=== PATIENT | male | born 1940 | race Caucasian/White ===

== ENCOUNTER 2024-04-11 22:58 | Emergency (ER) | payer MEDICARE, SELFPAY ==
[2024-04-11 23:02] VITALS: BP 153/65
[2024-04-11 23:10] VITALS: BP 153/65
[2024-04-11 23:22] VITALS: BMI 26.0
[2024-04-11 23:30] VITALS: BP 156/66
--- NOTE | 2024-04-11 23:43 | ED.GENMED ---
History of Present Illness
General
Chief Complaint: Chest Pain
Source: patient
Exam Limitations: none
Time Seen by Provider: 04/11/24 23:24
Nursing documentation reviewed up to this point in time: agreed with
History of Present Illness
History of Present Illness:
Pleasant 84-year-old male who presents with chest pain that began around 9:40 PM this evening. He states that he was bending over and developed sharp chest pain. He took 3 nitroglycerin. He states that he felt some relief with the second nitro.
Denies fever, chills, nausea or vomiting. He states that he is currently chest pain-free. 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 Mariano Lujan. Patient states that he was measuring for blinds in the house. She was exerting
himself during the day today.
Vital signs are stable. Patient not hypoxic
Nursing note reviewed. I agree with nursing documentation up to this point in time.
Home Meds and allergies reviewed.
NUMBER AND COMPLEXITY OF PROBLEMS ADDRESSED AT THE ENCOUNTER
� Chronic conditions affecting care: Coronary artery disease, hypertension, GERD
� Acute Exacerbation and/or Progression of Chronic Illness: Possible coronary artery disease.
� Differential Diagnosis includes: GERD, ACS, musculoskeletal chest pain.
AMOUNT AND/OR COMPLEXITY OF DATA TO BE REVIEWED AND ANALYZED
I performed an independent evaluation of the following and my interpretation is:
EKG:
CT:
X-rays:
Ultrasound:
Laboratory Studies:
Other:
Review of other/old records:
CONCLUSIONS
1. Normal biventricular systolic function.
2. Aortic valve sclerosis.
3. Mild pulmonary hypertension.
4. Mild to moderate DC.
Clinical information was obtained by an independent historian:
Prescriptions/Medications Considered but not given:
Further testing considered but not performed:
RISK OF COMPLICATIONS AND/OR MORBIDITY OR MORTALITY OF PATIENT MANAGEMENT
Social determinants of health affecting care: Good Social Support, is present at the bedside.
Discussion with other providers:
Escalation of care including admission/observation vs risk of discharge considered:
CRITICAL CARE NOTE:
Total Time (exclusive of procedures):
Update:
Review of Systems
Review of Systems
Allergies reviewed?: Yes
Other source history: family
All Other Systems: ROS reviewed and negative except as documented in HPI and ROS
Constitutional: Reports no symptoms
EENT: Reports no symptoms
Respiratory: Reports no symptoms
Cardiac: Reports no symptoms
ABD/GI: Reports no symptoms
: Reports no symptoms
Musculoskeletal: Reports no symptoms
Skin: Reports no symptoms
Neurological: Reports no symptoms
Endocrine: Reports no symptoms
Hematologic/Lymphatic: Reports no symptoms
Psychiatric: Reports no symptoms
Phy Exam
General Physical Exam
General Presentation: well appearing and no apparent distress
General Skin: warm and dry
General Habitus: normal
General Mental: alert
General Hydration: appears well hydrated
ENT Exam
ENT Exam: EOMI, pharynx normal, neck supple and normocephalic
Eye Exam
Eye Exam: PERRL, cornea clear and conjunctiva normal
Cardiovascular Exam
Cardiovascular Exam: regular rate/rhythm, no edema, no murmur and normal peripheral pulses
Pulmonary Exam
Pulmonary Exam: lungs clear, no respiratory distress, no rales, no crackles, no rhonchi, no stridor, no wheezing and no cough
Gastrointestinal Exam
Gastrointestinal Exam: normal bowel sounds, non tender, soft, no organomegaly, no pulsatile mass and non distended
Neurological Exam
Neurological Exam: alert, oriented x3, no motor deficits and speech normal
Musculoskeletal Exam
Musculoskeletal Exam: full ROM and no edema
Skin Exam
Skin Exam: normal color, warm/dry, no rash and no petechia
Psychiatric Exam
Psychiatric Exam: normal mood/affect
Scores
Heart Score for Chest Pain Patients
STEMI patient?: No
History: Slightly or Non-Suspicious
ECG: Normal
Age: >/= 65 years
Risk Factors: >/= 3 Risk Factors or History of CAD
Troponin: </= Normal Limit
Heart Score for Chest Pain Patients: 4
Heart Score Risk: 20.3% MACE over next 6 weeks
Course
Orders/Labs/Results
Orders:
Orders
04/11/24 23:00
Electrocardiogram (*1) Urgent
Reason for Study: Chest Pain
04/11/24 23:01
EKG- Treatment ONCE
04/11/24 23:25
CR Chest - 2 Views Urgent
Comment:
Reason For Exam: cp
04/11/24 23:36
Complete Blood Count/With Diff Urgent
PTT Urgent
Prothrombin Time Urgent
04/11/24 23:59
Comprehensive Metabolic Panel Urgent
Comment: REDRAW
Troponin I Urgent
04/12/24 03:33
Troponin I Urgent
Abnormal Lab Results
04/11/24 04/12/24
23:36 00:46
WBC 4.5 L 10^3/uL
(4.8-10.8)
RBC 3.62 L 10^6/uL
(4.70-6.10)
Hgb 12.4 L g/dL
(13.0-18.0)
Hct 35.2 L %
(39.0-52.0)
MCV 97.2 H fL
(80.0-94.0)
MCH 34.3 H pg
(27.0-31.0)
Plt Count 106 L 10^3/uL
(130-400)
Absolute Lymphs (auto) 0.9 L 10^3/uL
(1.2-3.4)
Lymphocytes % 20.0 L %
(20.5-51.1)
Monocytes % 10.2 H %
(1.7-9.3)
PT 22.2 H Sec
(11.4-14.6)
BUN 43 H mg/dl
(9-20)
Creatinine 1.5 H mg/dL
(0.7-1.3)
Glucose 112 H mg/dl
(70-99)
Alkaline Phosphatase 283 H U/L
(38-126)
04/11/24 23:36
04/12/24 00:46
Vital Signs
Initial and Last Documented VS:
Initial Vital Signs
Pulse Resp BP Pulse Ox
75 19 153/65 95
04/11/24 23:02 04/11/24 23:02 04/11/24 23:02 04/11/24 23:02
Last Documented Vital Signs
Pulse Resp BP Pulse Ox
74 15 158/75 95
04/12/24 05:00 04/12/24 05:00 04/12/24 05:00 04/12/24 05:00
*Critical Care Note
Total Time (30-74mins, 75-104mins- exclusive of procedures): Not Applicable
ED Attending Note
-
Portions of this chart may have been created with voice recognition software.� Occasional wrong word or��sound alike� substitutions may have occurred due to the inherent limitations of voice recognition software.
Discharge Plan
Departure
Patient Disposition: Home (Routine Discharge)
Date of Disposition: 04/12/24
Time of Disposition: 04:34
Patient with high blood pressure during this ER visit?: Yes
Condition: Good
Discharge Problem:
Chest pain
Instructions: Chest Pain DCA Follow Up
Referrals:
Willis Zuniga MD [Active] -
Moises Moore MD [Family Provider] -
Activity Restrictions/Additional Instructions:
It was a pleasure meeting you and taking part in your care. We hope for your continued healing and wellness.
Please read discharge instructions in their entirety. However, they are for general education and may not describe your exact diagnosis at discharge. Information on your ER visit and medical conditions were discussed with you along with appropriate
follow up information...
If indicated, please take your medications as instructed and indicated on discharge paperwork.
Please schedule a follow up appointment as directed. Call to schedule an appointment
Please return to the emergency department with ANY change in, persisting, or worsening of symptoms. If any of your symptoms do not improve, or persist, or become more severe within 6-12 hours, please return to the emergency department for further
care.
Please return to the emergency department if you develop a headache, neck pain/stiffness, fever greater than 100.4F, chest pain, shortness of breath, persistent nausea, vomiting, slurred speech, difficulty walking, numbness/tingling, weakness, signs
of infection or any other symptoms that are worrisome to you.
If you have any questions or concerns please do not hesitate to call the Hospital at or E-mail me directly at [email or web address]
Interventions
Interventions:
*Risk Screen - Suicide Last Done: 04/11/24 23:02
*General Assessment Last Done: 04/11/24 23:02
*Neglect/Abuse Screening Last Done: 04/11/24 23:02
ED- Fall Risk Assessment Last Done: 04/11/24 23:22
*ED COVID-19 Vaccine History Last Done: 04/11/24 23:22
*Nursing Disposition Last Done: 04/12/24 05:25
ED- Cardiac Assessment Last Done: 04/11/24 23:22
Discharge Date and Time
Discharge Date/Time: 04/12/24 05:27
Print Language: TUNISIAN
[2024-04-11 23:50] LABS: % Basophils 0.9 % (0-2); % Immature Granulocytes 0.2 % (0-0.5); % Monocytes 10.2 % (1.7-9.3); % Neutrophils 64.7 % (42.2-75.2); Absolute Eosinophils 0.2 10^3/uL (0-0.7); Absolute Lymphocytes 0.9 10^3/uL (1.2-3.4); Absolute Monocytes 0.5 10^3/uL (0.1-0.6); Absolute Neutrophils 2.9 10^3/uL (1.4-6.5); Hematocrit 35.2 % (39.0-52.0); Hemoglobin 12.4 g/dL (13.0-18.0); Mean Corp Hgb Conc. 35.2 g/dL (33.0-37.0); Mean Corpuscular Hgb 34.3 pg (27.0-31.0); Mean Corpuscular Volume 97.2 fL (80.0-94.0); Mean Platelet Volume 10.3 fL (7.4-10.4); Nucleated Red Blood Cells % 0 % (-); Platelet Count 106 10^3/uL (130-400); Red Blood Cell Count 3.62 10^6/uL (4.70-6.10); Red Cell Dist. Width 13.5 % (11.5-14.5); White Blood Cell Count 4.5 10^3/uL (4.8-10.8)
[2024-04-12] VITALS (10 sets, daily range): BP systolic 153–186; BP diastolic 71–114
[2024-04-12 00:03] LABS: APTT 30.4 Sec (23.4-35.0); INR 1.92; PT 22.2 Sec (11.4-14.6)
[2024-04-12 01:35] LABS: ALT (SGPT) 21 U/L (0-50); AST (SGOT) 34 U/L (17-59); Albumin 4.5 g/dl (3.5-5.0); Alkaline Phosphatase 283 U/L (38-126); Blood Urea Nitrogen 43 mg/dl (9-20); Calcium 10.2 mg/dl (8.4-10.2); Carbon Dioxide 23 mmol/L (22-30); Chloride 102 mmol/L (98-107); Estimated Creatinine Clearance 35 ml/min; Glucose 112 mg/dl (70-99); Potassium 5.1 mmol/L (3.5-5.1); Sodium 139 mmol/L (135-145); Total Bilirubin 1.2 mg/dl (0.2-1.3); Total Protein 7.2 g/dl (6.3-8.2); eGFR 45.06
[2024-04-12 01:38] LABS: Troponin I 0.017 ng/ml
[2024-04-12 04:31] LABS: Troponin I < 0.012 ng/ml
== END 2024-04-12 05:27 | disposition home or self-care (01) ==
LOC: EMR 22:58
PROVIDERS: EMERGENCY PHYSICIAN Student in an Organized Health Care Education/Training Program; FAMILY PHYSICIAN Internal Medicine
DX: R07.9 Chest pain, unspecified (principal); I10 Essential (primary) hypertension; I25.10 Atherosclerotic heart disease of native coronary artery without angina pectoris; K21.9 Gastro-esophageal reflux disease without esophagitis
CPT/HCPCS: 99285; 71046; 80053; 84484; 85025; 85610; 85730; 93005

== ENCOUNTER 2024-06-06 16:54 | Inpatient (IN) | payer MEDICARE, SELFPAY ==
[2024-06-06] VITALS (15 sets, daily range): BP systolic 134–209; BP diastolic 54–86; BMI 25.8
[2024-06-06 12:34] LABS: % Eosinophils 4.6 % (0-6); % Immature Granulocytes 0.5 % (0-0.5); % Lymphocytes 22.4 % (20.5-51.1); % Monocytes 10.6 % (1.7-9.3); % Neutrophils 60.9 % (42.2-75.2); Absolute Eosinophils 0.2 10^3/uL (0-0.7); Absolute Lymphocytes 0.9 10^3/uL (1.2-3.4); Absolute Monocytes 0.4 10^3/uL (0.1-0.6); Absolute Neutrophils 2.4 10^3/uL (1.4-6.5); Hematocrit 31.1 % (39.0-52.0); Mean Corp Hgb Conc. 35.4 g/dL (33.0-37.0); Mean Corpuscular Hgb 32.9 pg (27.0-31.0); Mean Corpuscular Volume 93.1 fL (80.0-94.0); Mean Platelet Volume 9.9 fL (7.4-10.4); Nucleated Red Blood Cells % 0 % (-); Platelet Count 114 10^3/uL (130-400); Red Blood Cell Count 3.34 10^6/uL (4.70-6.10); Red Cell Dist. Width 14.2 % (11.5-14.5); White Blood Cell Count 3.9 10^3/uL (4.8-10.8)
[2024-06-06 12:55] LABS: Troponin I < 0.012 ng/ml
[2024-06-06 13:07] LABS: ALT (SGPT) 16 U/L (0-50); AST (SGOT) 26 U/L (17-59); Albumin 4.1 g/dl (3.5-5.0); Alkaline Phosphatase 301 U/L (38-126); Blood Urea Nitrogen 37 mg/dl (9-20); Calcium 9.6 mg/dl (8.4-10.2); Carbon Dioxide 24 mmol/L (22-30); Chloride 103 mmol/L (98-107); Estimated Creatinine Clearance 34 ml/min; Glucose 200 mg/dl (70-99); Potassium 5.3 mmol/L (3.5-5.1); Sodium 138 mmol/L (135-145); Total Bilirubin 0.9 mg/dl (0.2-1.3); Total Protein 6.4 g/dl (6.3-8.2)
--- NOTE | 2024-06-06 13:35 | ED.GENMED ---
History of Present Illness
General
Chief Complaint: Chest Pain
Source: patient
Exam Limitations: none
Time Seen by Provider: 06/06/24 11:52
Nursing documentation reviewed up to this point in time: agreed with
History of Present Illness
History of Present Illness:
84-year-old male with past medical history of coronary artery disease, hypertension, PE, GERD, hyperlipidemia presents emergency department today with concerns of chest pain. He is currently asymptomatic. He reports that he first started noticing
the pain last night at rest when he was sitting in a chair. He reports that this pain required 2 nitro with relief. Patient reports that he then went to bed and woke up with chest pain. This took 3 nitros to relieve. Patient states that he has
not had return of that chest pain and is asymptomatic. Previously, patient's chest pain came predictably with exertion and he would take a nitro as needed or rest. Patient states that when he felt the pain, he felt the pain in a band of his chest
and compares it to when he had to have stenting done. Patient denies any back pain, denies any abdominal pain, denies any nausea vomiting or syncopal episodes. Patient's skill labor is Dr. Zuniga, patient called the office today who recommended
ER evaluation.
Review of Systems
Review of Systems
All Other Systems: ROS reviewed and negative except as documented in HPI and ROS
Phy Exam
Physical Exam
Physical Exam:
General: Patient is well appearing and in no acute distress; non-toxic
Skin: Warm and dry, no rashes or lesions
Head: Normocephalic, atraumatic
Eyes: Sclera non-icteric. EOMs intact. PERRLA.
Cardiac: Regular rate and rhythm, no murmurs. No tenderness to palpation of the external chest wall.
Peripheral Vascular: No lower extremity swelling or edema
Pulm: Normal respiratory effort, no wheezes, rales, or rhonchi
Abdomen: No abdominal tenderness to palpation
Neuro: CN II-XII intact, no focal neurologic deficits.
Psychiatric: Appropriate mood and affect.
Scores
Heart Score for Chest Pain Patients
STEMI patient?: No
History: Slightly or Non-Suspicious
ECG: Nonspecific Repolarization
Age: >/= 65 years
Risk Factors: >/= 3 Risk Factors or History of CAD
Troponin: </= Normal Limit
Heart Score for Chest Pain Patients: 5
Heart Score Risk: 20.3% MACE over next 6 weeks
Course
Orders/Labs/Results
Orders:
Orders
06/06/24 10:58
EKG [Electrocardiogram (*1)] Urgent
Reason for Study: Chest Pain
06/06/24 10:59
EKG- Treatment ONCE
06/06/24 12:17
Complete Blood Count/With Diff Urgent
Comprehensive Metabolic Panel Urgent
Folate Urgent
Comment: ADDON
Troponin I Urgent
Vitamin B12 Urgent
Comment: ADDON
06/06/24 14:20
Aspirin Chewable [Low Strength Aspirin] 324 mg PO NOW STA
Nitroglycerin Ointment [Nitro-Bid] 1 inch TOPICAL NOW STA
06/06/24 14:21
Heparin Protocol- PTT Orders As Directed
PTT per Heparin protocol: -Obtain CBC and baseline PTT - if not already collected.
-Obtain PTT 6 hours from start of infusion. Then, every 6 hours until 2 consecutive
PTT's are therapeutic. Then, PTT Daily.
-With each rate change, obtain PTT every 6 hours until 2 consecutive PTT's are
therapeutic. Then, PTT Daily.
Notify MD As Directed
Notify physician if: PTT is greater than or equal to 200.
06/06/24 14:43
Complete Blood Count/No Diff Urgent
Comment: Obtain baseline before beginning heparin infusion if not already collected
PTT Urgent
Comment: Obtain baseline before beginning heparin infusion if not already collected
Troponin I Q8H
06/06/24 Dinner
Regular
At Your Request: Full Participation
Does patient need a safe tray?: No
06/06/24 15:40
Add On- LAB Urgent
Tests Added?: b12 folate
06/06/24 15:43
PT/INR [Prothrombin Time] Stat
06/06/24 16:26
Phytonadione [Mephyton] 1.5 mg PO NOW STA
06/06/24 16:27
Admit/Transfer Patient As Directed
Co-Sign Provider:
Level of Care: Inpatient admission
Assign to:: IVU
Physician / Group: shanice oliver
Diagnosis: [place], ckd 3b
Reason for Hospitalization: cath in am
Expected length of stay greater than two midnights?: Yes
ELOS- Estimated Length of Stay in days: 4
I certify the patient meets the requirements for IP care: Yes
Code Status As Directed
Resuscitation Status: Full Code
06/06/24 16:36
PRN Pain Medication Management As Directed
May give lesser potent ordered pain med per pt: Yes
preference::
Protocol:: Medication orders for pain may be administered in a
manner that supports deferring to patient preference
when the pt is:
- Requesting an ordered lesser potent pain medication.
Least to most potent pain medications are defined
as: acetaminophen < NSAID < tramadol < opioids
(morphine, oxycodone, hydromorphone).
- Requesting a lesser dose of the same medication IF
ORDERED.
- Requesting a less intrusive route of administration
if both routes are prescribed by the provider (PO <
IV).
06/06/24 18:00
Atorvastatin [Lipitor] 40 mg PO QPM
06/06/24 18:11
0.9% Sodium Chloride [Nss (Preservative Free)] See Protocol IV PRN PRN
Acetaminophen [Tylenol] 650 mg PO Q4HPRN PRN
Cyanocobalamin [Vitamin B-12] 1,000 mcg PO QPM
Dextrose 50%-Water [Dextrose 50% Syringe] 12.5 grams IV [id number] PRN
FOLic ACID [Folvite] 1 mg 0.9% Sodium Chloride 50 ml [Nss] 50 ml IV DAILYPRN
Glucagon [GlucaGen] 1 mg IM PRN PRN
Lorazepam [Ativan] 0.5 mg PO DAILYPRN PRN
Lorazepam [Ativan] 1 mg IV Q1HPRN PRN
Lorazepam [Ativan] 1 mg PO Q2HPRN PRN
Lorazepam [Ativan] 2 mg IV Q1HPRN PRN
Tamsulosin [Flomax] 0.4 mg PO QPM
Zolpidem Tartrate [Ambien] 2.5 mg PO HSPRN PRN
06/06/24 18:11
Case Management Consult Once
Case Management Consult: Other
Comment: Substance abuse counseling
VTE Contraindication Routine
VTE Mechanical Device Contraindication: Medical Contraindication
Pharmocologic Contraindication: Medical Contraindication
Alcohol Urgent
B-Hydroxybutyrate Urgent
GGTP Urgent
Magnesium Urgent
Phosphorus Urgent
Urinalysis Routine
Urine Drug Abuse Screen Routine
Activity As Directed
Activity Level: As Tolerated
Bedside Glucose Monitoring As Directed
Frequency: AC&HS
Additional Instructions:: Change to q6h if pt on TPN, tube feeding or not eating
Bladder Scan As Directed
Follow Bladder Retention/Intermittent Cath Algorithm?: Yes
PRN if no void in __ hours: 6
Frequency: Per Retention Algorithm
If Bladder Scan Result >: 400
then:: Straight cath
Intake/ Output As Directed
Frequency: Per unit guidelines
MSAS SCORE As Directed
MSAS Score 0-4: Repeat MSAS every 2 hours until 0-4 for three consecutive assessments, then every 4 hours x 48
hours.
MSAS Score 5-7: For MILD withdrawl symptoms. Repeat MSAS and RASS every 2 hours
MSAS Score 8-11: For MODERATE withdrawal symptoms. Repeat MSAS and RASS every 1 hour. Consider ICU or IMU
level of care.
MSAS Score > 11: For SEVERE withdrawal symptoms. Repeat MSAS and RASS every 1 hour. Notify provider, consider
ICU level of care.
MSAS Additional Instructions: If no improvement or no decrease in score from severe to moderate within 12
hours, consult psychiatry
MSAS Notify Provider: Notify provider if patient requires more than 10 mg of Lorazepam in eight hour period.
Straight Cath As Directed
Frequency: Per Retention Algorithm
Additional Instructions: straight cath as needed per acute urinary retention algorithm for 24 hrs
Additional Instructions: for bladder scan greater than 400 mL
Vital Signs As Directed
Frequency: Per unit guidelines
Weight As Directed
Frequency: Daily
Pulse Ox/spot Check [RESP] Routine
Quantity: 1
Ot Eval And Treat Routine
Pt Eval And Treat Routine
Treatment: going for cath in am
Activity Level: As Tolerated
06/06/24 20:00
Metoprolol [Lopressor] 12.5 mg PO BID
Ranolazine Extended Release [Ranexa Extended Release] 500 mg PO BID
Thiamine Injection 200 mg IV Q12
06/06/24 20:30
Nitroglycerin Ointment [Nitro-Bid] 1 inch TOPICAL Q6
06/06/24 22:00
Amitriptyline [Elavil] 50 mg PO HS
06/06/24 22:30
Troponin I Q8H
06/07/24 00:00
0.9% Sodium Chloride 1000 ml [Nss] 1,000 ml IV 80 mls/hr
06/07/24 Breakfast
NPO
Allow oral meds: Yes
Allow clear liquids: 4hrs prior to procedure
NPO with Ice Chips: Yes
NPO for procedure after (time): Midnight tonight
Comment: may have unrestricted clear liquid up to 4 hrs prior to scheduled procedure
CBC/No Diff [Complete Blood Count/No Diff] IN AM
Cardiovascular Evaluation IN AM
Complete Blood Count/With Diff IN AM
Comprehensive Metabolic Panel IN AM
Ferritin IN AM
Folate IN AM
Hemoglobin A1c [Glycohemoglobin (HgbA1c)] IN AM
INR [Prothrombin Time] IN AM
Iron IN AM
Magnesium IN AM
Total Iron Binding IN AM
Vitamin B12 IN AM
06/07/24 06:30
Troponin I Q8H
06/07/24 07:30
Insulin Aspart Corrective Low [Novolog Flexpen-Low Resistance] See Protocol SC AC
06/07/24 08:00
Allopurinol [Zyloprim] 150 mg PO DAILY
Aspirin Chewable [Low Strength Aspirin] 81 mg PO DAILY
Cholecalciferol (Vitamin D3) [VITAMIN D3 (cholecalciferol)] 125 mcg PO DAILY
Clopidogrel Bisulfate [Plavix] 75 mg PO DAILY
FOLic ACID [Folvite] 1 mg PO DAILY
Lansoprazole [Prevacid] 15 mg PO DAILY
Valsartan [Diovan] 80 mg PO DAILY
06/08/24 06:00
Complete Blood Count/No Diff Q2D
Comment: Notify if platelet count is <130,000 or decreases by 50% from baseline
Complete Blood Count/With Diff IN AM
Comprehensive Metabolic Panel IN AM
06/09/24 06:00
Complete Blood Count/With Diff IN AM
Comprehensive Metabolic Panel IN AM
06/09/24 20:00
Thiamine HCl [Vitamin B1] 100 mg PO BID
06/10/24 06:00
Complete Blood Count/No Diff Q2D
Comment: Notify MD if platelet count is <130,000 or decreases by 50% from baseline
06/12/24 06:00
Complete Blood Count/No Diff Q2D
Comment: Notify MD if platelet count is <130,000 or decreases by 50% from baseline
06/14/24 06:00
Complete Blood Count/No Diff Q2D
Comment: Notify MD if platelet count is <130,000 or decreases by 50% from baseline
06/16/24 06:00
Complete Blood Count/No Diff Q2D
Comment: Notify MD if platelet count is <130,000 or decreases by 50% from baseline
06/18/24 06:00
Complete Blood Count/No Diff Q2D
Comment: Notify MD if platelet count is <130,000 or decreases by 50% from baseline
06/20/24 06:00
Complete Blood Count/No Diff Q2D
Comment: Notify MD if platelet count is <130,000 or decreases by 50% from baseline
06/22/24 06:00
Complete Blood Count/No Diff Q2D
Comment: Notify MD if platelet count is <130,000 or decreases by 50% from baseline
Abnormal Lab Results
06/06/24 06/06/24 06/06/24
12:17 14:43 15:43
WBC 3.9 L 10^3/uL 3.9 L 10^3/uL
(4.8-10.8) (4.8-10.8)
RBC 3.34 L 10^6/uL 3.36 L 10^6/uL
(4.70-6.10) (4.70-6.10)
Hgb 11.0 L g/dL 11.4 L g/dL
(13.0-18.0) (13.0-18.0)
Hct 31.1 L % 32.1 L %
(39.0-52.0) (39.0-52.0)
MCV 95.5 H fL
(80.0-94.0)
MCH 32.9 H pg 33.9 H pg
(27.0-31.0) (27.0-31.0)
Plt Count 114 L 10^3/uL 114 L 10^3/uL
(130-400) (130-400)
Absolute Lymphs (auto) 0.9 L 10^3/uL
(1.2-3.4)
Monocytes % 10.6 H %
(1.7-9.3)
PT 31.9 H Sec
(11.4-14.6)
Potassium 5.3 H mmol/L
(3.5-5.1)
BUN 37 H mg/dl
(9-20)
Creatinine 1.6 H mg/dL
(0.7-1.3)
Glucose 200 H mg/dl
(70-99)
Alkaline Phosphatase 301 H U/L
(38-126)
06/06/24 14:43
06/06/24 12:17
Vital Signs
Initial and Last Documented VS:
Initial Vital Signs
Temp Pulse Resp BP Pulse Ox
98 F 74 19 134/65 98
06/06/24 11:04 06/06/24 11:04 06/06/24 11:04 06/06/24 11:04 06/06/24 11:04
Last Documented Vital Signs
Temp Pulse Resp BP Pulse Ox
98.0 F 65 15 181/70 99
06/06/24 16:52 06/06/24 18:00 06/06/24 18:00 06/06/24 18:00 06/06/24 18:00
MDM/Problems Addressed
Differential Diagnosis Includes:
ACS, PE, musculoskeletal sprain/strain, costochondritis
MDM/Problems Addressed:
84-year-old male with past medical history of coronary artery disease, hypertension, PE, GERD, hyperlipidemia presents emergency department today with concerns of chest pain. He is currently asymptomatic. He reports that he first started noticing
the pain last night at rest when he was sitting in a chair. He also woke up with the pain. He has a previous history of stable exertional angina. Currently, he is chest pain-free. He is well-appearing on exam. His initial troponin was
undetectable. His EKG shows no ischemic changes. Patient's skill labor, Dr. Zuniga, for me to speak to Dr. Patterson. I spoke to Dr. Patterson who recommended admission for unstable angina. Application Systems Engineer did evaluate patient here in the emergency
department. Patient referred for admission to hospitalist.
Chronic conditions affecting care:
Severe multivessel coronary artery disease, prior cath PCI's, essential hypertension, dyslipidemia, [id number] diabetes mellitus, CKD, history of PE
*Pulse Oximetry
Patient hypoxic: no
*EKG
Interpreted by ED Provider?: Yes
EKG Intrepretation Date: 06/06/24
Interpretation: abnormal
Comparison EKG: no changes (PVCs no longer present)
Heart Rate: 76
Rate: normal
Rhythm: sinus
[place]: normal axis
Interval: first degree heart block
*Critical Care Note
Total Time (30-74mins, 75-104mins- exclusive of procedures): Not Applicable
Data Reviewed
Review of Other/Old Records Reveals: Records (Reviewed history and physical note from Dr. Machado on 04/11/2024, patient presented for follow-up appointment, had refill of his medications, had order for echocardiogram) and Testing (Reviewed previous
echocardiogram)
Source: patient and records
Prescriptions/Medications Considered But Not Given:
n/a
Patient Management
Escalation/DeEscalation of care consider admission/obs:
Reviewed case with my ER attending
ED Attending Note
-
Portions of this chart may have been created with voice recognition software.� Occasional wrong word or��sound alike� substitutions may have occurred due to the inherent limitations of voice recognition software.
Discharge Plan
Departure
Patient Disposition: Admit
Date of Disposition: 06/06/24
Time of Disposition: 14:26
Admit to: Telemetry
Presentation/result/management discussed w/ accepting MD/DO: Hospitalist
Patient with high blood pressure during this ER visit?: Yes
Condition: Fair
Discharge Problem:
Chest pain
Interventions
Interventions:
*Risk Screen - Suicide Last Done: 06/06/24 11:04
*General Assessment Last Done: 06/06/24 11:04
*Neglect/Abuse Screening Last Done: 06/06/24 11:04
*ED COVID-19 Vaccine History Last Done: 06/06/24 18:16
*Nursing Disposition Last Done: 06/06/24 18:07
ED- Cardiac Assessment Last Done: 06/06/24 12:15
Discharge Date and Time
Discharge Date/Time: 06/06/24 18:07
--- NOTE | 2024-06-06 14:05 | CON.CAR ---
Consultation
Consultation Request
Date/Time Consultation Requested: 06-06-2024, 1pm
Date/Time Consultation Performed: 06-06-2024, 120pm
Requesting Provider: Samantha Araujo
Performing Provider: veronica
Reason for Consultation: chest pain
Medical History
-
Chief Complaint: CP
History of Present Illness:
Primary: Moises Moore MD
Cardiology: Willis Zuniga MD
84 yo man with severe CAD s/p multiple cath and PCI procedures most recently at [facility] in Jun 2023. He tells me he has total of 15 stents. No hx CABG. He has chronic WINTERS and exertional angina after walking about 75 yards- this chest pressure dissapates
when he slows his pace. He was in his USOH until last evening when while sitting at the computer he developed mid sternal CP ('pressure just like what I get with exercise') which resolved after SL NTG x 2. No SOB, diaphoresis, nausea or vomiting. He
awoke this AM with the same type of chest pressure and took SL NTG x 3 before complete relief. Called Dr Zuniga who advised him to come to ER.
Antianginal meds at baseline: Imdur and ranolazine
PMH
CAD with multiple PCIs
PE (2001, 2011) - takes warfarin. Last INR at home 4 days ago was 2.4
HTN
Gout
Mild (mean gradient 15mm Hg in Mar 2024)
DM (on glyburide)
Exam
148/86 HR 68 RR 16
cor RR S1S2 2/6 murmur
Lungs clear
Ext no edema
neuro nonfocal
ECG SR with first degree AV delay, NSSTA, no sig change vs Mar 2024 baseline
Trop <0.012
Cr 1.6 (was 1.5 in Mar 2024)
H/H 11.1/34, PLT 114k
IMP
Unstable angina: Very worrsiome story for rest angina yesterday then again this AM. He has known severe CAD. Rec: Admit, add ASA 325mg today then 81mg daily. Cath tomorrow. Add Metoprolol 12.5 q12, cont Plavix, change imdur to NTP 1' q6hr
Anemia: He is on warfarin and plavix at baseline. Hct 31 now, 35 in Mar. Check Fe studies, stool guiac
Dyslipidemia: Continue atorvastatin 40, check lipid panel in AM
DM: Glu [id number]. Check A1c in AM
Allergies / Home Medications
Allergy/AdvReac Type Severity Reaction Status Date / Time
amoxicillin trihydrate Allergy Unknown Verified 09/10/12 11:34
[From Augmentin]
potassium clavulanate Allergy Unknown Verified 09/10/12 11:34
[From Augmentin]
quinidine Allergy Unknown Verified 09/10/12 11:34
Physical Exam
Vital Signs
Temp Pulse Resp BP Pulse Ox
98 F 56 17 157/57 96
06/06/24 11:04 06/06/24 13:15 06/06/24 13:15 06/06/24 13:00 06/06/24 13:15
Lab Results
06/06/24 12:17
06/06/24 12:17
Troponin I < 0.012 ng/ml 06/06/24 12:17
[2024-06-06 15:14] LABS: APTT 34.9 Sec (23.4-35.0)
[2024-06-06 15:16] LABS: Hematocrit 32.1 % (39.0-52.0); Hemoglobin 11.4 g/dL (13.0-18.0); Mean Corp Hgb Conc. 35.5 g/dL (33.0-37.0); Mean Corpuscular Hgb 33.9 pg (27.0-31.0); Mean Corpuscular Volume 95.5 fL (80.0-94.0); Mean Platelet Volume 9.9 fL (7.4-10.4); Platelet Count 114 10^3/uL (130-400); Red Blood Cell Count 3.36 10^6/uL (4.70-6.10); Red Cell Dist. Width 14.2 % (11.5-14.5); White Blood Cell Count 3.9 10^3/uL (4.8-10.8)
--- NOTE | 2024-06-06 15:27 | HPS.HSE ---
Addendum entered and electronically signed by Roger Martinez MD 06/06/24 16:47:
.
Original Note:
Family Physician
-
Family Physician: Miguel Angel Aly
Chief Complaint
-
Midsternal chest pain
History of Present Illness
84-year-old male reports last evening while sitting at his computer he developed midsternal chest pain that felt similar to his chest pain with exercise which resolved after sublingual nitro x 2 doses. He woke up this a.m. at 7 with same type of
chest pain and took sublingual nitro x 3 doses before complete relief. He reports he normally wakes up at 8:00. He called his hearing impaired teacher at [facility] Dr. Zuniga who advised him to come to the ER for evaluation he had his last stent with him in
June 2023. He believes prior stents were at [facility].. He denies current headache, sore throat, fever, chills, palpitations, shortness breath, cough, abdominal pain, nausea, vomiting, diarrhea, urinary symptoms, black or bloody
stools. He has history of severe CAD status post multiple caths PCI procedures with 15 stents total most recent June 2023,
Provoked PE 2011 from prolonged travel on current warfarin, HTN, gout, mild aortic stenosis peak mean gradient 15 mmHg March 2024 echo, DM 2, chronic thrombocytopenia unclear, macrocytic anemia,? CKD, anxiety, depression, insomnia, BPH,
GERD, alcohol use
Medical History
Past Medical History
Past Medical History: Reports Other
Additional Past Medical History:
severe CAD status post multiple caths PCI procedures with 15 stents total most recent June 2023
Provoked PE 2011 from prolonged travel on current warfarin
mild aortic stenosis peak mean gradient 15 mmHg March 2024 echo,
HTN
gout
DM 2
chronic thrombocytopenia unclear
Daily alcohol use
macrocytic anemia
? CKD 3B
anxiety
depression
insomnia
BPH
GERD
IGIUGIG
Lyme's disease finished treatment March 2023 doxycycline
Past Surgical History: Reports Other
Additional Past Surgical History:
Multiple cardiac stents x 15 last 30 June 2023 at [facility]
Bilateral shoulder surgeries
Disc repair lumbar spine
Right arm surgery times 10/16/1969
Social History
Tobacco: Former Smoker (Cigars for 5 years quit 1965)
Alcohol: Daily (1 beer or 2 glasses red wine or 1 cocktail philip real whiskey)
Drug: None
Personal:
Living: With Family ( Vidya)
Employment: Retired
Family History
Family History: Other (Mother [place] age 82 history DM2, father age 68 history of gastric cancer and [place] during cancer treatment)
Allergies / Home Medications
Allergies reflects when Allergies were last updated in [facility].
Home Medications with original date entered in [facility]
Allergy/Medication List:
Allergies
Allergy/AdvReac Type Severity Reaction Status Date / Time
amoxicillin trihydrate Allergy Unknown Verified 09/10/12 11:34
[From Augmentin]
potassium clavulanate Allergy Unknown Verified 09/10/12 11:34
[From Augmentin]
quinidine Allergy Unknown Verified 09/10/12 11:34
Home Medications
acetaminophen 500 mg tablet (Tylenol Extra Strength) 500 mg PO Q6HPRN PRN mild pain 06/06/24
allopurinol 300 mg tablet 150 mg PO DAILY Gout 06/06/24
amitriptyline 50 mg tablet 50 mg PO HS depression/sleep 06/06/24
atenolol 25 mg tablet 12.5 mg PO DAILY Blood Pressure 06/06/24
atorvastatin 40 mg tablet 40 mg PO QPM High Cholesterol 06/06/24
cholecalciferol (vitamin D3) 125 mcg (5,000 unit) tablet (Vitamin D3) 125 mcg PO DAILY Supplement 06/06/24
clopidogrel 75 mg tablet 75 mg PO DAILY Blood Clot Prevention/Tx 06/06/24
coenzyme Q10 100 mg capsule (CoQ-10) 100 mg PO QPM Supplement 06/06/24
cyanocobalamin (vitamin B-12) 1,000 mcg tablet 1,000 mcg PO QPM Supplement 06/06/24
isosorbide mononitrate 30 mg tablet,extended release 24 hr 30 mg PO DAILY Heart Disease/Condition 06/06/24
lansoprazole 15 mg delayed release,disintegrating tablet 15 mg PO DAILY Gastrointestinal Issue 06/06/24
lorazepam 0.5 mg tablet 0.5 mg PO DAILYPRN PRN anxiety 06/06/24
ranolazine 500 mg tablet,extended release,12 hr 500 mg PO BID Heart Disease/Condition 06/06/24
tamsulosin 0.4 mg capsule 0.4 mg PO QPM Urinary Issue 06/06/24
valsartan 80 mg tablet 80 mg PO DAILY Blood Pressure 06/06/24
warfarin 3 mg tablet (Jantoven) 3 mg PO DAILY Blood Clot Prevention/Tx 06/06/24
zolpidem 5 mg tablet 2.5 mg PO HSPRN PRN sleep 06/06/24
Review of Systems
-
History Source: Patient
A 12 point ROS was completed and negative except as noted: Yes
Constitutional: Denies Fever, Fatigue or Chills
EENT: Denies Sore Throat or Runny Nose
Respiratory: Denies Cough or Trouble Breathing
Cardiac: Reports Chest Pain (Midsternal at rest); Denies Palpitations or Syncope
Abdomen/GI: Denies Abdominal Pain, Nausea, Vomiting, Diarrhea, Constipated, Bloody Stools or Black Stools
: Denies Dysuria, Frequency, Flank Pain, Incontinence, Difficulty Voiding or Urgency
Musculoskeletal: Reports Edema (Trace bilateral ankles); Denies Joint Pain
Skin: Denies Itching or Rash
Neurological: Denies Dizzy, Headache or Weakness
Endocrine: Reports No Symptoms
Hematologic/Lymphatic: Reports No Symptoms
Psych: Reports Calm
Physical Exam
Vital Signs
Vital Signs
Temp Pulse Resp BP Pulse Ox
98 F 56 17 157/57 96
06/06/24 11:04 06/06/24 13:15 06/06/24 13:15 06/06/24 13:00 06/06/24 13:15
Physical Exam
General: Comfortable and Conversant; No Pain, Fever or Chills
HEENT: NormoCephalic, Anicteric, Moist mucous membranes, PERRLA, Lastrup Conjunctivae, No Ptosis and Hearing Impaired
Respiratory: Clear; No Wheezes, Rales or Rhonchi
Cardiac: S1/S2, Regular Rhythm and Peripheral Edema (Trace bilateral ankles); No Murmur, Rub, Gallop, JVD or Carotid Bruits
Breast: Deferred by me
GI: Soft, Non Tender, Non Distended, Normal Bowel Sounds and No Hepatosplenomegaly
Rectal: Deferred by Provider
Genito-urinary: Deferred by me
Musculoskeletal: No Clubbing, No Cyanosis, Edema, Left Lower Extremity (Trace) and Edema, Right Lower Extremity (Trace); No Edema, Left Upper Extremity or Edema, Right Upper Extremity
Skin: Warm and Dry; No Rash, Jaundice or Ulcers
Neuro: AO x 3, No Motor Deficits, Nonfocal/grossly intact, Cranial Nerves Intact and Other (Slight IGIUGIG); No Slurred Speech, Facial Droop, Tremors or Sedated
Psych: Calm
Laboratory Results
-
06/06/24 14:43
06/06/24 12:17
Laboratory Results
APTT 34.9 Sec (23.4-35.0) 06/06/24 14:43
Total Bilirubin 0.9 mg/dl (0.2-1.3) 06/06/24 12:17
AST 26 U/L (17-59) 06/06/24 12:17
ALT 16 U/L (0-50) 06/06/24 12:17
Alkaline Phosphatase 301 U/L (38-126) H 06/06/24 12:17
Troponin I < 0.012 ng/ml 06/06/24 12:17
Impression/Plan
-
Impression/plan:
Admit to IVU
#Unstable angina with known severe CAD
-History 15 stents last June 2023 at [facility]
Troponin<0.012 will trend
-Consult CBC cardiology seen at bedside by Dr. Patterson with following orders below
-Add aspirin 325 mg today then 81 mg daily
-Add metoprolol 12.5 mg every 12 hours
-Continue Plavix
-Change Imdur to Nitropaste 1 inch every 6 hours
-Continue Ranexa 500 mg twice daily
-N.p.o. after midnight for cardiac cath in a.m.
-Check lipid profile, hemoglobin A1c
-Continue atorvastatin 40 mg at bedtime
-PT/OT/case management eval
EKG sinus rhythm with first-degree AV block no significant change from March 2024
2D echo 04/24/2024: EF 60 to 65%, Stage I diastolic dysfunction, no wall abnormalities, normal LVS LVSF, trace MR, mildly dilated left atrium, mild aortic stenosis peak gradient 25 mmHg, mild TR.
Pulm arterial pressure 34 mmHg, mild pulm smitha regurgitation
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
-Patient took COUMADIN this morning 06/06/2024 will give vitamin K 1.5 mg p.o. due to -INR 3.03-per Dr. Patterson request
-Check inr daily
-Patient on daily Coumadin 3 mg
#Chronic daily alcohol use
1 beer or 2 glasses red wine or 1 cocktail philip real whiskey
-Last drink yesterday 06/05/2024
-MSAS screen with protocol thiamine folate
#Chronic thrombocytopenia unclear
-PLT 114 appears baseline for patient
-Follow CBC
#Macrocytic anemia likely due to alcohol use
Hgb 11.4, MCV 95.5
-Check B12, folate
-Continue B12 supplement
#Known mild aortic stenosis mean gradient 15 mmHg March 2024
? CKD 3B
Creat 1.6 was 1.5 on 04/12/2024
-Follow BMP
-IV NSS due to upcoming cath
#HTN�benign
157/57
-Replace atenolol with metoprolol 12.5 mg every [address] Patterson
-Continue valsartan 80 mg daily
#HLD
-Check lipid profile
-Continue atorvastatin 40 mg at bedtime
#DM2
Accu-Cheks with SSI, check HgbA1c
#Gout
-Continue allopurinol 150 mg daily
#BPH
-Continue tamsulosin 0.4 mg every afternoon
-Bladder scan protocol
#Depression/Anxiety
-Continue amitriptyline 50 mg at bedtime
-Continue lorazepam 0.5 mg p.o. daily as needed
#Insomnia
-Continue Ambien 2.5 mg at bedtime as needed
DVT prophylaxis
Coumadin based on INR
Full code
[2024-06-06 15:29] LABS: Troponin I < 0.012 ng/ml
[2024-06-06] MEDS: LOW STRENGTH ASPIRIN 324 MG PO (15:34)
[2024-06-06] MEDS: NITRO-BID 1 INCH TOPICAL ×2 (15:34→19:33)
[2024-06-06 16:14] LABS: INR 3.05; PT 31.9 Sec (11.4-14.6)
--- NOTE | 2024-06-06 16:34 | W.PN.UPDATE ---
Update Note
Progress Note Update
I saw and examined the patient.
The PULL WORKER or PA's note was reviewed and I agree with the note.
Comment: This note is in addition to H&P done by PULL WORKER.
84-year-old male with past medical history of CAD with multiple stents, PE, hypertension came to the hospital with chest pain. He does have a history of angina however this morning he woke up with chest pain. Seen by cardiology and plan for
cardiac catheterization tomorrow. INR greater than 3. Spoke with cardiology and will give low-dose vitamin K. Continue with aspirin and Plavix for now. In the past midnight. Suspect does have component of CKD. Gentle hydration past midnight.
Monitor urine output. Bladder scan as needed. Admit to IVU
General: Comfortable and Conversant; No Pain, Fever or Chills
HEENT: NormoCephalic, Anicteric, Moist mucous membranes
Respiratory: Clear; No Wheezes, Rales or Rhonchi
Cardiac: S1/S2, Regular Rhythm and Peripheral Edema (Trace bilateral ankles); No Murmur
Breast: Deferred by me
GI: Soft, Non Tender, Non Distended, Normal Bowel Sounds
Rectal: Deferred by Provider
Genito-urinary: Deferred by me
Musculoskeletal: No Clubbing, No Cyanosis, Edema, Left Lower Extremity (Trace) and Edema, Right Lower Extremity (Trace); No Edema, Left Upper Extremity or Edema, Right Upper Extremity
Neuro: AO x 3, No Motor Deficits, Nonfocal/grossly intact, Cranial Nerves Intact
Psych: Calm
I spent a total of 77 minutes with the patient or on the floor. More than 50% of this time involved counseling and coordination of care.
[2024-06-06] MEDS: MEPHYTON 1.5 MG PO (16:53)
--- NOTE | 2024-06-06 18:28 | PTCARENOTE ---
received pt from ED. BP 191/75, Dr Cortes made aware. Will give 8pm dose of metoprolol now. SR on tele monitor, will continue to monitor.
[2024-06-06] MEDS: LOPRESSOR 12.5 MG PO (18:38)
[2024-06-06 18:39] LABS: Folate 12.4 ng/ml (2.76-20); Vitamin B12 767 pg/ml (239-931)
[2024-06-06] MEDS: VITAMIN B-12 1000 MCG PO (19:30)
[2024-06-06] MEDS: FLOMAX 0.4 MG PO (19:30)
[2024-06-06] MEDS: APRESOLINE 10 MG IV (19:31)
[2024-06-06] MEDS: RANEXA EXTENDED RELEASE 500 MG PO (19:33)
[2024-06-06] MEDS: THIAMINE INJECTION 200 MG IV (19:33)
[2024-06-06 20:14] LABS: Amphetamines Negative (Negative); Barbiturates Negative (Negative); Benzodiazepines Negative (Negative); Buprenorphine Negative (Negative); Cocaine Negative (Negative); Marijuana Negative (Negative); Methadone Negative (Negative); Methamphetamines Negative (Negative); Opiates Negative (Negative); Phencyclidine Negative (Negative); Tricyclic Antidepressants Positive (Negative)
[2024-06-06 20:16] LABS: Urine Albumin Negative (Neg - Trace); Urine Bilirubin Negative (Negative); Urine Character Clear (Clear); Urine Color Yellow; Urine Glucose Trace (Negative); Urine Ketone Negative (Negative); Urine Leukocyte Negative (Negative); Urine Nitrite Negative (Negative); Urine Occult Blood Negative (Negative); Urine Specific Gravity 1.015 (<1.030); Urine Urobilinogen Negative (Neg - 1+)
[2024-06-06 21:25] LABS: Glucose - Point of Care 195 mg/dl (70-99)
--- NOTE | 2024-06-06 21:33 | PTCARENOTE ---
Received patient at change of shift. SR on the monitor, HR in the 60-70s. Hydralazine administered as per SEP. Patients BP now 136/54. Pt has no chest pain at this time. Informed pt of NPO after midnight and plan of care for the night, pt verbalizes
understanding. No complaints from pt at this time, call grace within reach.
[2024-06-06] MEDS: ELAVIL 50 MG PO (21:59)
[2024-06-06 22:34] LABS: GGTP 19 U/L (15-73); Magnesium 1.9 mg/dl (1.6-2.3); Phosphorus 3.2 mg/dl (2.5-4.5)
[2024-06-06 22:35] LABS: Alcohol None Detected
[2024-06-06 22:40] LABS: B-Hydroxybutyrate 0.06 mmol/L (0.02-0.27)
[2024-06-06 22:41] LABS: Troponin I < 0.012 ng/ml
[2024-06-07] VITALS (17 sets, daily range): BP systolic 117–179; BP diastolic 50–87; PULSE 56–58; O2SAT 97; BMI 24.8
[2024-06-07] MEDS: NITRO-BID 1 INCH TOPICAL ×2 (00:40→06:05)
[2024-06-07] MEDS: NSS 1000 IV ×2 (00:41→15:06)
[2024-06-07 06:47] LABS: INR 2.24; PT 25.3 Sec (11.4-14.6)
[2024-06-07 06:47] LABS: % Basophils 1.1 % (0-2); % Immature Granulocytes 0.3 % (0-0.5); % Lymphocytes 24.3 % (20.5-51.1); % Monocytes 11.2 % (1.7-9.3); % Neutrophils 57.1 % (42.2-75.2); Absolute Eosinophils 0.2 10^3/uL (0-0.7); Absolute Lymphocytes 0.9 10^3/uL (1.2-3.4); Absolute Monocytes 0.4 10^3/uL (0.1-0.6); Absolute Neutrophils 2.1 10^3/uL (1.4-6.5); Hematocrit 31.7 % (39.0-52.0); Hemoglobin 11.4 g/dL (13.0-18.0); Mean Corpuscular Hgb 33.8 pg (27.0-31.0); Mean Corpuscular Volume 94.1 fL (80.0-94.0); Mean Platelet Volume 9.6 fL (7.4-10.4); Nucleated Red Blood Cells % 0 % (-); Platelet Count 99 10^3/uL (130-400); Red Blood Cell Count 3.37 10^6/uL (4.70-6.10); Red Cell Dist. Width 13.9 % (11.5-14.5); White Blood Cell Count 3.7 10^3/uL (4.8-10.8)
[2024-06-07 07:03] LABS: ALT (SGPT) 15 U/L (0-50); AST (SGOT) 16 U/L (17-59); Albumin 3.8 g/dl (3.5-5.0); Alkaline Phosphatase 215 U/L (38-126); Blood Urea Nitrogen 32 mg/dl (9-20); Calcium 9.5 mg/dl (8.4-10.2); Carbon Dioxide 24 mmol/L (22-30); Chloride 105 mmol/L (98-107); Estimated Creatinine Clearance 39 ml/min; Glucose 156 mg/dl (70-99); HDL Cholesterol 49 mg/dl; Iron 95 ug/dl (49-181); LDL Cholesterol, Calculated 59 mg/dl; Magnesium 1.7 mg/dl (1.6-2.3); Potassium 4.8 mmol/L (3.5-5.1); Sodium 138 mmol/L (135-145); Total Bilirubin 1.1 mg/dl (0.2-1.3); Total Cholesterol 138 mg/dl (50-199); Total Protein 6.1 g/dl (6.3-8.2); Triglyceride 153 mg/dl (10-149); Very Low Density Lipoprotein 30 mg/dl (0-30); eGFR 48.95
[2024-06-07 07:06] LABS: Troponin I 0.015 ng/ml
[2024-06-07 08:05] LABS: Folate 10.9 ng/ml (2.76-20); Vitamin B12 722 pg/ml (239-931)
[2024-06-07] MEDS: DIOVAN 80 MG PO (08:06)
[2024-06-07] MEDS: LOPRESSOR 12.5 MG PO ×2 (08:07→21:23)
[2024-06-07] MEDS: FOLVITE 1 MG PO (08:07)
[2024-06-07] MEDS: NOVOLOG FLEXPEN-LOW RESISTANCE 1 UNITS SC (08:08)
[2024-06-07] MEDS: LOW STRENGTH ASPIRIN 81 MG PO (08:08)
[2024-06-07] MEDS: PROTONIX 20 MG PO (08:09)
[2024-06-07] MEDS: RANEXA EXTENDED RELEASE 500 MG PO ×2 (08:09→21:24)
[2024-06-07] MEDS: THIAMINE INJECTION 200 MG IV ×2 (08:09→21:24)
[2024-06-07] MEDS: PLAVIX 75 MG PO (08:09)
[2024-06-07] MEDS: VITAMIN D3 (cholecalciferol) 125 MCG PO (08:10)
[2024-06-07] MEDS: ZYLOPRIM 150 MG PO (08:11)
[2024-06-07 08:27] LABS: Percent Saturation 31 % (20-50); Total Iron Binding Capacity 305 ug/dl (261-462)
[2024-06-07 09:38] LABS: Glycohemoglobin (HgbA1c) 6.8 % (4.0-5.6)
[2024-06-07] MEDS: NITRO-BID TOPICAL (12:15)
[2024-06-07 12:16] LABS: Glucose - Point of Care 144 mg/dl (70-99)
[2024-06-07] MEDS: NOVOLOG FLEXPEN-LOW RESISTANCE SC ×2 (12:20→16:04)
[2024-06-07] MEDS: TYLENOL 650 MG PO (12:21)
--- NOTE | 2024-06-07 12:43 | PTOTSP ---
pt currently demonstrates ability to complete simple ADLs, functional transfers, ambulation with no assistance. no acute OT needs identified at this time, will sign off.
--- NOTE | 2024-06-07 12:53 | CM ---
Addendum entered by Anne Pickard 06/07/24 12:56:
Reviewed with his alcohol use. He states he wiggins snot feel it is an issue and at this time he is declining any information on outpatient or inpatient counseling resources.
Original Note:
Reviewed chart. Met with and Mrs. Preston to review discharge plans. He states prior to admission he resides with his spouse in an apartment without any step to enter. He states prior to admission he was independent with ambulation and adls.
He states he does not have any DME in the home. He states he has a prescription plan. Medical work-up in progress.The discharge plan is to return home with his spouse when medically stable.
[2024-06-07] MEDS: NSS IV (13:49)
--- NOTE | 2024-06-07 13:55 | W.PN.HOSP.TC ---
Today's Communication/Plan
-
Monitor vitals
See plan
Continue with nitro
Continue metoprolol
Plan for cardiac cath today
Cardiology following
Assessment / Plan
Assessment / Plan
General: Comfortable and Conversant; No Pain, Fever or Chills
HEENT: NormoCephalic, Anicteric, Moist mucous membranes
Respiratory: Clear; No Wheezes, Rales or Rhonchi
Cardiac: S1/S2, Regular Rhythm and Peripheral Edema (Trace bilateral ankles); No Murmur
GI: Soft, Non Tender, Non Distended, Normal Bowel Sounds
Musculoskeletal: Edema, Left Lower Extremity (Trace) and Edema, Right Lower Extremity (Trace); No Edema, Left Upper Extremity or Edema, Right Upper Extremity
Neuro: AO x 3, No Motor Deficits, Nonfocal/grossly intact, Cranial Nerves Intact
Psych: Calm
Unstable angina with known severe CAD
-History 15 stents last June 2023 at [facility]
Troponin<0.012 will trend
Cardiology following, plan for cardiac cath 06/07
Cardiology added aspirin, also on Plavix
-Add metoprolol 12.5 mg every 12 hours
-Change Imdur to Nitropaste 1 inch every 6 hours
-Continue Ranexa 500 mg twice daily
-Continue atorvastatin 40 mg at bedtime
2D echo 04/24/2024: EF 60 to 65%, Stage I diastolic dysfunction, no wall abnormalities, normal LVS LVSF, trace MR, mildly dilated left atrium, mild aortic stenosis peak gradient 25 mmHg, mild TR.
Pulm arterial pressure 34 mmHg, mild pulm smitha regurgitation
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
-Patient took COUMADIN morning 06/06/2024 will give vitamin K 1.5 mg p.o. due to -INR 3.03-per Dr. Leonardo mcgarry
-Patient on daily Coumadin 3 mg which is on hold per cards recs
INR 2.2
#Chronic daily alcohol use
1 beer or 2 glasses red wine or 1 cocktail philip real whiskey
-Last drink yesterday 06/05/2024
-MSAS screen with protocol thiamine folate
#Chronic thrombocytopenia unclear
Monitor
#Macrocytic anemia likely due to alcohol use
-Continue B12 supplement
#Known mild aortic stenosis mean gradient 15 mmHg March 2024
? CKD 3B
Creat 1.6 was 1.5 on 04/12/2024
-Follow BMP
-IV NSS due to upcoming cath
#HTN�benign
-Replace atenolol with metoprolol 12.5 mg every [address] Patterson
-Continue valsartan 80 mg daily
#HLD
-Continue atorvastatin 40 mg at bedtime
#DM2
Accu-Cheks with SSI,HgbA1c 6.8
#Gout
-Continue allopurinol 150 mg daily
#BPH
-Continue tamsulosin 0.4 mg every afternoon
-Bladder scan protocol
#Depression/Anxiety
-Continue amitriptyline 50 mg at bedtime
-Continue lorazepam 0.5 mg p.o. daily as needed
#Insomnia
-Continue Ambien 2.5 mg at bedtime as needed
DVT prophylaxis
Coumadin based on INR
Full code
I spent a total of 52 minutes with the patient or on the floor. More than 50% of this time involved counseling and coordination of care.
Anticipated Discharge: 24 - 48 hours
Subjective/Interval History
-
Date of Service: June 07, 2024
denies chest pain
Objective Data
-
Labs:
Laboratory Results
06/07/24 06/07/24
06:21 06:22
WBC 3.7 L
Hgb 11.4 L
Hct 31.7 L
Plt Count 99 L
PT 25.3 H
INR 2.24
Sodium 138
Potassium 4.8
Chloride 105
Carbon Dioxide 24
BUN 32 H
Creatinine 1.4 H
Glucose 156 H
Calcium 9.5
Total Bilirubin 1.1
AST 16 L
ALT 15
Alkaline Phosphatase 215 H
Vital Signs:
Vital Signs
Temp Pulse Resp BP Pulse Ox
98.4 F 56 18 173/66 99
06/07/24 11:11 06/07/24 13:00 06/07/24 11:11 06/07/24 11:33 06/07/24 11:11
I&O
06/06/24 06/07/24 06/08/24
06:59 06:59 06:59
Output Total 200 / 200 475 / 475
Balance -200 / -200 -475 / -475
[2024-06-07 14:12] LABS: ACT-LR - POC 350 Seconds (116-155)
--- NOTE | 2024-06-07 15:22 | ITS.CL.CATH ---
[facility] - Catheterization
Cardiac Catheterization
Procedure Report:
CARDIAC CATHETERIZATION REPORT
Date of Procedure: 06/07/2024
Referring: Ron Patterson MD
Indication: Unstable angina in patient with numerous prior PCI procedures (none at )
�
HEMODYNAMIC DATA
AO: 138/58
LV: Not done
�
LEFT VENTRICULOGRAPHY: Not done
�
CORONARY ANGIOGRAPHY
Dominance: Right
Left Main: Mild calcification without angiographic evidence of significant stenosis.
LAD: There is a long stented segment from the ostium of the LAD extending to the midportion. There is mild restenosis throughout the stented segment but no high-grade areas of restenosis. In the mid to distal LAD past the takeoff of D3 there is a
focal 90% stenosis in the previously unstented segment of vessel. There is smooth 40% distal LAD stenosis proximal to the LV apex.
Circumflex: There is an ostial circumflex stent with focal 40-50% in-stent stenosis. The distal circumflex has a widely patent stent with no restenosis. OM1 is moderate to large with 60% ostial stenosis within a previously placed stent. OM 2 is a
medium size vessel with mild luminal disease. OM 3 is medium to large with mild luminal disease and the circumflex terminates with a large LPL1 and a medium sized LPL2.
RCA: The RCA is dominant with stents extending from the ostium vessel completely through the midportion and distal RCA into the RPDA. There are several areas of restenosis to about 30% through this full metal jacket. The PDA has mild luminal
disease distal to the stent. Interestingly, there is some competitive flow in the terminal RPDA.
Angioplasty: At the conclusion the diagnostic study, we proceeded with intervention to treat what appeared to be the culprit lesion for his unstable angina that being the 90% mid to distal LAD stenosis. Heparin was used for anticoagulation. A 6
Latvian EBU 3.75 guide catheter was used. A BMW wire was advanced into the LAD but could not be passed across the diseased segment. This was replaced with a whisper wire. With some effort and some very good fortune we were able to get the whisper
wire through the high-grade mid to distal LAD stenosis. Angioplasty with a 1.5 x 15 Euphora resulted in balloon rupture at 12 fer. The balloon was removed and replaced with a 2.0 x 15 Euphora which was inflated to 12 fer with excellent balloon
expansion. We then placed a 2.25 x 26 [place] frontier TREY across the entire diseased segment. The stent was deployed at 14 fer then postdilated with a 2.5 NC trek to 17 fer. The final angiographic result was outstanding. There were no procedural
complications. An additional Plavix 300 mg was administered at the procedure conclusion.
�
Closure Device: None-the procedure was performed via the right radial artery. The Yahir's test was normal prior to the procedure.
�
Radiation (mGy): 336
DAP (cm2.Gy): 16.2
Fluoroscopy time: 11.9 minutes
�
CONCLUSIONS
1:�Multivessel CAD as described. This patient has numerous stents in all 3 epicardial vessels. The culprit lesion for his unstable angina is felt to be a new 90% mid to distal LAD lesion in a previously unstented segment of vessel
2:�Successful stenting of 90% mid to distal LAD stenosis using 2.25 x 26 [place] frontier TREY with outstanding angiographic result
3. Recommend triple therapy (aspirin, Plavix, Coumadin) for 1 week then stop aspirin and continue Plavix and Coumadin
�
�
Copy to: Willis Zuniga MD, Kacey Moore MD
�
Ron Patterson MD, [facility], [facility]
[2024-06-07 15:45] LABS: ACT-LR - POC > 397 Seconds (116-155)
[2024-06-07 15:47] LABS: Glucose - Point of Care 125 mg/dl (70-99)
--- NOTE | 2024-06-07 16:00 | PN.CDI ---
CDI
- -
CDI:
Physician Documentation Request
Admit Date: 06/06/24 16:54
Dear Doctor Juan,
06/07 Hospitalist PN: 'Chronic daily alcohol use, 1 beer or 2 glasses red wine or 1 cocktail philip real whiskey -Last drink yesterday 06/05/2024 -MSAS screen with protocol thiamine folate...Macrocytic anemia likely due to alcohol use'
If possible, please provide further specificity as outlined below:
Alcohol dependence
Alcohol abuse
Alcohol use
Other
Use of terms such as suspected, likely, concern for, or probable (associated with a specific diagnosis that is being evaluated, monitored, or treated as if it exists) are acceptable and can be coded in the inpatient setting, when documented at the
time of discharge.
Thank you,
Jolene Rose RN, BSN
CDI Specialist
Available via [employer] text
Please use your independent medical judgment in providing your response.
[2024-06-07] MEDS: FLOMAX 0.4 MG PO (17:28)
[2024-06-07] MEDS: VITAMIN B-12 1000 MCG PO (17:29)
[2024-06-07] MEDS: COUMADIN 3 MG PO (18:24)
[2024-06-07] MEDS: ELAVIL 50 MG PO (21:25)
[2024-06-07 21:38] LABS: Glucose - Point of Care 102 mg/dl (70-99)
--- NOTE | 2024-06-08 02:54 | PTCARENOTE ---
pt pleasant and cooperative. radial band off without difficulty. pt denies chest pain or discomfort. sr on monitor with bigeminal pvc's noted. oob to br without difficulty. no acute distress at this time.
[2024-06-08 03:57] VITALS: BP 127/70
[2024-06-08] MEDS: NSS IV (04:22)
[2024-06-08 04:44] LABS: INR 1.61; PT 19.3 Sec (11.4-14.6)
[2024-06-08 04:59] LABS: % Basophils 0.7 % (0-2); % Eosinophils 3.9 % (0-6); % Immature Granulocytes 0.2 % (0-0.5); % Lymphocytes 16.4 % (20.5-51.1); % Neutrophils 69.8 % (42.2-75.2); ALT (SGPT) 16 U/L (0-50); AST (SGOT) 19 U/L (17-59); Absolute Eosinophils 0.2 10^3/uL (0-0.7); Absolute Lymphocytes 0.7 10^3/uL (1.2-3.4); Absolute Monocytes 0.4 10^3/uL (0.1-0.6); Albumin 3.8 g/dl (3.5-5.0); Alkaline Phosphatase 155 U/L (38-126); Blood Urea Nitrogen 29 mg/dl (9-20); Calcium 9.5 mg/dl (8.4-10.2); Carbon Dioxide 22 mmol/L (22-30); Chloride 103 mmol/L (98-107); Estimated Creatinine Clearance 39 ml/min; Glucose 140 mg/dl (70-99); Hematocrit 33.6 % (39.0-52.0); Hemoglobin 11.9 g/dL (13.0-18.0); Mean Corp Hgb Conc. 35.4 g/dL (33.0-37.0); Mean Corpuscular Hgb 33.1 pg (27.0-31.0); Mean Corpuscular Volume 93.6 fL (80.0-94.0); Mean Platelet Volume 9.7 fL (7.4-10.4); Nucleated Red Blood Cells % 0 % (-); Platelet Count 104 10^3/uL (130-400); Potassium 4.5 mmol/L (3.5-5.1); Red Blood Cell Count 3.59 10^6/uL (4.70-6.10); Sodium 138 mmol/L (135-145); Total Bilirubin 1.5 mg/dl (0.2-1.3); Total Protein 6.2 g/dl (6.3-8.2); White Blood Cell Count 4.3 10^3/uL (4.8-10.8); eGFR 48.95
[2024-06-08 06:00] VITALS: BMI 24.7
[2024-06-08 07:11] VITALS: BP 122/57
[2024-06-08 07:15] LABS: Glucose - Point of Care 136 mg/dl (70-99)
[2024-06-08] MEDS: NOVOLOG FLEXPEN-LOW RESISTANCE SC ×2 (07:47→12:27)
[2024-06-08] MEDS: PROTONIX 20 MG PO (07:52)
[2024-06-08] MEDS: LOPRESSOR 12.5 MG PO (07:52)
[2024-06-08] MEDS: RANEXA EXTENDED RELEASE 500 MG PO (07:53)
[2024-06-08] MEDS: PLAVIX 75 MG PO (07:53)
[2024-06-08] MEDS: VITAMIN D3 (cholecalciferol) 125 MCG PO (07:54)
[2024-06-08] MEDS: DIOVAN 80 MG PO (07:54)
[2024-06-08] MEDS: LOW STRENGTH ASPIRIN 81 MG PO (07:54)
[2024-06-08] MEDS: ZYLOPRIM 150 MG PO (07:55)
[2024-06-08] MEDS: FOLVITE 1 MG PO (07:56)
[2024-06-08] MEDS: THIAMINE INJECTION 200 MG IV (07:56)
--- NOTE | 2024-06-08 10:39 | W.PN.CD ---
Today's Communication / Plan
-
OK for home
Followup arranged
Plan:
- ASA for 7 days then STOP ASA,
- Plavix + warfarin chronic.
- At one year iban his assignment officer may chose to stop Plavix
Impression / Plan
-
CAD with ACS
- No complication from stenting performed yestereday
Mixed hyperlipidemia
Anemia
hx of chronic warfarin for prior pe
Subjective:
No CP
Physical Exam
Vital Signs/Labs
Vital Signs
Temp Pulse Resp BP Pulse Ox
98.0 F 60 16 122/57 98
06/08/24 07:09 06/08/24 07:52 06/08/24 07:09 06/08/24 07:52 06/08/24 07:09
06/07/24 06/08/24 06/09/24
06:59 06:59 06:59
Actual Weight 78.3 kg 78 kg
06/08/24 04:05
06/08/24 04:05
PT 19.3 Sec (11.4-14.6) H 06/08/24 04:05
INR 1.61 06/08/24 04:05
APTT 34.9 Sec (23.4-35.0) 06/06/24 14:43
Magnesium 1.7 mg/dl (1.6-2.3) 06/07/24 06:22
Triglycerides 153 mg/dl (10-149) H 06/07/24 06:22
LDL Cholesterol, Calc 59 mg/dl 06/07/24 06:22
VLDL Cholesterol, Calc 30 mg/dl (0-30) 06/07/24 06:22
HDL Cholesterol 49 mg/dl 06/07/24 06:22
LAB Results
06/06/24 06/06/24 06/06/24
12:17 14:43 22:09
Troponin I < 0.012 < 0.012 < 0.012
06/07/24
06:22
Troponin I 0.015
Physical Exam
Constitutional: No acute distress
EENT: Anicteric
Cardiovascular: Rhythm & rate is regular and Pedal edema is absent
Respiratory: Respiratory effort normal and Lungs clear to auscul.
GI: Soft and Distention absent
Other: Cath Site (no hematoma/bleed. radial pulse intact)
Data Reviewed
-
Date of Service: June 08, 2024
--- NOTE | 2024-06-08 10:57 | W.PN.HOSP.TC ---
Today's Communication/Plan
-
Monitor vital signs see plan
Triple therapy for 7 days and then discontinue aspirin and continue with Plavix and Coumadin
INR check next week with primary care provider
Discharge today
Time of discharge 38 minutes
Assessment / Plan
Assessment / Plan
General: Comfortable and Conversant; No Pain, Fever or Chills
HEENT: NormoCephalic, Anicteric, Moist mucous membranes
Respiratory: Clear; No Wheezes, Rales or Rhonchi
Cardiac: S1/S2, Regular Rhythm and Peripheral Edema (Trace bilateral ankles); No Murmur
GI: Soft, Non Tender, Non Distended, Normal Bowel Sounds
Musculoskeletal: Edema, Left Lower Extremity (Trace) and Edema, Right Lower Extremity (Trace); No Edema, Left Upper Extremity or Edema, Right Upper Extremity
Neuro: AO x 3, No Motor Deficits, Nonfocal/grossly intact, Cranial Nerves Intact
Psych: Calm
Unstable angina with known severe CAD
-History 15 stents last June 2023 at [facility]
Troponin<0.012 will trend
Cardiology following,cardiac cath 06/07 with CAD, stented LAD
Cardiology added aspirin, also on Plavix. Per cardiology aspirin, Plavix and Coumadin for 7 days and then discontinue aspirin and continue Plavix and Coumadin
-Added metoprolol 12.5 mg every 12 hours
imdur on dc
-Continue Ranexa 500 mg twice daily
-Continue atorvastatin 40 mg at bedtime
2D echo 04/24/2024: EF 60 to 65%, Stage I diastolic dysfunction, no wall abnormalities, normal LVS LVSF, trace MR, mildly dilated left atrium, mild aortic stenosis peak gradient 25 mmHg, mild TR.
Pulm arterial pressure 34 mmHg, mild pulm smitha regurgitation
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
-Patient took COUMADIN morning 06/06/2024 will give vitamin K 1.5 mg p.o. due to -INR 3.03-per Dr. Leonardo mcgarry
-Patient on daily Coumadin 3 mg which is on hold per cards recs
INR 1.6; patient for repeat INR next week with his PCP
#Chronic daily alcohol use with dependence
1 beer or 2 glasses red wine or 1 cocktail philip real whiskey
-Last drink 06/05/2024
-MSAS screen with protocol thiamine folate
#Chronic thrombocytopenia unclear
Monitor
#Macrocytic anemia likely due to alcohol use
-Continue B12 supplement
#Known mild aortic stenosis mean gradient 15 mmHg March 2024
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
Creat 1.6 was 1.5 on 04/12/2024
-Follow BMP
-IV NSS due to upcoming cath
#HTN�benign
-Replace atenolol with metoprolol 12.5 mg every [address] Patterson
-Continue valsartan 80 mg daily
#HLD
-Continue atorvastatin 40 mg at bedtime
#DM2
Accu-Cheks with SSI,HgbA1c 6.8
#Gout
-Continue allopurinol 150 mg daily
#BPH
-Continue tamsulosin 0.4 mg every afternoon
-Bladder scan protocol
#Depression/Anxiety
-Continue amitriptyline 50 mg at bedtime
-Continue lorazepam 0.5 mg p.o. daily as needed
#Insomnia
-Continue Ambien 2.5 mg at bedtime as needed
DVT prophylaxis
Coumadin based on INR
Full code
Anticipated Discharge: Today
Subjective/Interval History
-
Date of Service: June 08, 2024
Denies pain
Objective Data
-
Labs:
Laboratory Results
06/08/24
04:05
WBC 4.3 L
Hgb 11.9 L
Hct 33.6 L
Plt Count 104 L
PT 19.3 H
INR 1.61
Sodium 138
Potassium 4.5
Chloride 103
Carbon Dioxide 22
BUN 29 H
Creatinine 1.4 H
Glucose 140 H
Calcium 9.5
Total Bilirubin 1.5 H
AST 19
ALT 16
Alkaline Phosphatase 155 H
Vital Signs:
Vital Signs
Temp Pulse Resp BP Pulse Ox
98.0 F 60 16 122/57 98
06/08/24 07:09 06/08/24 07:52 06/08/24 07:09 06/08/24 07:52 06/08/24 07:09
I&O
06/07/24 06/08/24 06/09/24
06:59 06:59 06:59
Intake Total 585 / 585
Output Total 200 / 200 1875 / 1875
Balance -200 / -200 -1290 / -1290
--- NOTE | 2024-06-08 11:05 | W.DCSUMMARY ---
Discharge Summary
Discharge Data
Date of Admission: 06/06/24
Date of Discharge: 06/08/24
-
Pending Results: No
Hospital Course
84-year-old male with past medical history of CAD status post cardiac stents, PE on Coumadin, alcohol use, anemia, aortic stenosis, CKD, hypertension, hyperlipidemia, diabetes mellitus, gout, BPH, depression/anxiety, insomnia came to the hospital
with chest pain. Patient was seen by cardiology throughout hospitalization and was taken for cardiac catheterization on 06/07/2024 which showed coronary artery disease where his LAD was stented. Patient was instructed to be on triple therapy with
aspirin Plavix and Coumadin for 7 days and then discontinue aspirin and continue both Plavix and Coumadin. Patient beta-ayleen was also changed to metoprolol on this hospitalization. His INR was 1.6 upon discharge so he was instructed to
follow-up with his primary care provider next week with repeat INR. Once his symptoms continue to improve, he was then discharged home with instructions to follow-up with all his physicians outpatient.
Discharge Plan
-
Patient Disposition: Home (Routine Discharge)
Discharge Diagnosis/Procedures: Unstable Angina s/p Angioplasty with stent to LAD
Diet: Low Cholesterol
Activity: As tolerated
Driving Restrictions: No driving for 24 hours
Blood Work: INR next week with primary care provider
Other Services: Cardiac Rehab
Activity Restrictions/Additional Instructions:
Follow-up with your primary care provider next week for INR
Continue with baby aspirin along with Plavix and Coumadin for 6 more days and then stop aspirin
Stand Alone Forms: DC Instructions- Cath/EP Lab
Referrals:
[facility] [Outside] - 07/12/24 9:30 am
(Cardiac Rehab Orientation appointment is on Monday, July 12 at 9:30AM.
The Cardiac Rehab gym is located on the first floor of the [facility].)
Miguel Angel Aly MD [Family Provider] -
Ron Patterson MD [Active] -
Musten,Willis E, MD [Active] - in less than 1 week
Additional Discharge Medication Instructions: You will be on Aspirin, Plavix and Warfarin for 1 week, then stop Aspirin
Prescriptions:
New
aspirin 81 mg Tablet,Chewable
81 mg PO DAILY Qty: 6 0RF
metoprolol tartrate 25 mg Tablet
12.5 mg PO BID Qty: 30 0RF
Continued
atorvastatin 40 mg Tablet
40 mg PO QPM
isosorbide mononitrate 30 mg Tablet Extended Release 24 Hr
30 mg PO DAILY
cyanocobalamin (vitamin B-12) 1,000 mcg Tablet
1,000 mcg PO QPM
valsartan 80 mg Tablet
80 mg PO DAILY
clopidogrel 75 mg Tablet
75 mg PO DAILY
amitriptyline 50 mg Tablet
50 mg PO HS
acetaminophen [Tylenol Extra Strength] 500 mg Tablet
500 mg PO Q6HPRN PRN (Reason: mild pain)
warfarin [Jantoven] 3 mg Tablet
3 mg PO DAILY
lorazepam 0.5 mg Tablet
0.5 mg PO DAILYPRN PRN (Reason: anxiety)
tamsulosin 0.4 mg Capsule
0.4 mg PO QPM
allopurinol 300 mg Tablet
150 mg PO DAILY
zolpidem 5 mg Tablet
2.5 mg PO HSPRN PRN (Reason: sleep)
coenzyme Q10 [CoQ-10] 100 mg Capsule
100 mg PO QPM
lansoprazole 15 mg Tablet,Disintegrat, Delay Rel
15 mg PO DAILY
ranolazine 500 mg Tablet Extended Release 12 Hr
500 mg PO BID
cholecalciferol (vitamin D3) [Vitamin D3] 125 mcg (5,000 unit) Tablet
125 mcg PO DAILY
Discontinued
atenolol 25 mg Tablet
12.5 mg PO DAILY
Discharge Orders:
Discharge Patient (As Directed); Ordered 06/08/24
Ordered By: Roger Martinez
Care Plan Goals
Care Plan Goals:
Problem: Readiness for enhanced knowledge related to diagnosis and treatment plan
Goal: Understand your diagnosis and treatment plan needs, including medications if applicable.
Instructions: Know your diagnosis, underlying causes and treatment plan options, including medications if applicable. Consult with your health care team to learn about your diagnosis and treatment plan, including medications if applicable.
Discharge Date and Time
Discharge Date/Time: 06/08/24 13:39
Print Language: SOMALI
[2024-06-08 11:06] VITALS: BP 128/49
== END 2024-06-08 13:39 | disposition home or self-care (01) | DRG 322 ==
LOC: IVU 16:54
PROVIDERS: Clinical Nurse Specialist Family Health; Physician Assistant; ADMITTING PHYSICIAN Internal Medicine; EMERGENCY PHYSICIAN Emergency Medicine; FAMILY PHYSICIAN Orthopaedic Surgery Hand Surgery; OTHER PHYSICIAN Internal Medicine Cardiovascular Disease
PROC: B2111ZZ Fluoroscopy of Multiple Coronary Arteries using Low Osmolar Contrast (ICD-10-PCS; 2024-06-06)
PROC: 027034Z Dilation of Coronary Artery, One Artery with Drug-eluting Intraluminal Device, Percutaneous Approach (ICD-10-PCS; 2024-06-06)
DX: I25.110 Atherosclerotic heart disease of native coronary artery with unstable angina pectoris (principal); D69.6 Thrombocytopenia, unspecified; I12.9 Hypertensive chronic kidney disease with stage 1 through stage 4 chronic kidney disease, or unspecified chronic kidney disease; N18.32 Chronic kidney disease, stage 3b; D53.9 Nutritional anemia, unspecified; E11.22 Type 2 diabetes mellitus with diabetic chronic kidney disease; F32.A Depression, unspecified; I35.0 Nonrheumatic aortic (valve) stenosis; F10.20 Alcohol dependence, uncomplicated; E78.5 Hyperlipidemia, unspecified; F41.9 Anxiety disorder, unspecified; G47.00 Insomnia, unspecified; I44.0 Atrioventricular block, first degree; K21.9 Gastro-esophageal reflux disease without esophagitis; M10.9 Gout, unspecified; N40.0 Benign prostatic hyperplasia without lower urinary tract symptoms; R79.1 Abnormal coagulation profile; R60.0 Localized edema; H91.90 Unspecified hearing loss, unspecified ear; Z95.5 Presence of coronary angioplasty implant and graft; Z79.01 Long term (current) use of anticoagulants; Z79.02 Long term (current) use of antithrombotics/antiplatelets; Z79.82 Long term (current) use of aspirin; Z79.899 Other long term (current) drug therapy; Z86.711 Personal history of pulmonary embolism; Z87.891 Personal history of nicotine dependence; Z86.19 Personal history of other infectious and parasitic diseases; Z82.49 Family history of ischemic heart disease and other diseases of the circulatory system; Z83.3 Family history of diabetes mellitus
CPT/HCPCS: 80053; 80061; 80306; 81003; 82010; 82077; 82607; 82728; 82746; 82962; 82977; 83036; 83540; 83550; 83735; 84100; 84484; 85025; 85027; 85347; 85610; 85730; 93005; 93454; 97162; 97165; 99285; C1725; C1769; C1874; C1894; C9600; Q9967

== ENCOUNTER 2024-07-30 10:42 | Outpatient (RCR) | payer MEDICARE, SELFPAY | END 2024-07-30 23:59 | disposition home or self-care (01) | LOC: CRHB 10:42 | PROVIDERS: ATTENDING PHYSICIAN Internal Medicine Cardiovascular Disease; FAMILY PHYSICIAN Internal Medicine | DX: I25.10 Atherosclerotic heart disease of native coronary artery without angina pectoris (principal); Z95.5 Presence of coronary angioplasty implant and graft | CPT/HCPCS: G0422; G0423 ==

== ENCOUNTER 2024-08-20 09:25 | Outpatient (RCR) | payer MEDICARE, SELFPAY | END 2024-08-20 23:59 | disposition home or self-care (01) | LOC: CRHB 09:25 | PROVIDERS: ATTENDING PHYSICIAN Internal Medicine Cardiovascular Disease; FAMILY PHYSICIAN Internal Medicine | DX: I25.10 Atherosclerotic heart disease of native coronary artery without angina pectoris (principal); Z95.5 Presence of coronary angioplasty implant and graft | CPT/HCPCS: G0422; G0423 ==

== ENCOUNTER 2024-09-26 10:40 | Outpatient (RCR) | payer MEDICARE, SELFPAY | END 2024-09-26 23:59 | disposition home or self-care (01) | LOC: CRHB 10:40 | PROVIDERS: ATTENDING PHYSICIAN Internal Medicine Cardiovascular Disease; FAMILY PHYSICIAN Internal Medicine | DX: I25.10 Atherosclerotic heart disease of native coronary artery without angina pectoris (principal); Z95.5 Presence of coronary angioplasty implant and graft | CPT/HCPCS: G0422; G0423 ==

== ENCOUNTER 2024-09-28 20:55 | Inpatient (IN) | payer MEDICARE, SELFPAY ==
[2024-09-28] VITALS (9 sets, daily range): BP systolic 157–202; BP diastolic 67–92; BMI 27.7; BMI 26.5
[2024-09-28 18:37] LABS: % Eosinophils 5.9 % (0-6); % Immature Granulocytes 0.5 % (0-0.5); % Lymphocytes 26.2 % (20.5-51.1); % Monocytes 11.5 % (1.7-9.3); % Neutrophils 54.9 % (42.2-75.2); Absolute Eosinophils 0.2 10^3/uL (0-0.7); Absolute Lymphocytes 1.1 10^3/uL (1.2-3.4); Absolute Monocytes 0.5 10^3/uL (0.1-0.6); Absolute Neutrophils 2.3 10^3/uL (1.4-6.5); Hemoglobin 10.8 g/dL (13.0-18.0); Mean Corp Hgb Conc. 33.8 g/dL (33.0-37.0); Mean Corpuscular Hgb 33.1 pg (27.0-31.0); Mean Corpuscular Volume 98.2 fL (80.0-94.0); Mean Platelet Volume 9.3 fL (7.4-10.4); Nucleated Red Blood Cells % 0 % (-); Platelet Count 125 10^3/uL (130-400); Red Blood Cell Count 3.26 10^6/uL (4.70-6.10); Red Cell Dist. Width 14.1 % (11.5-14.5); White Blood Cell Count 4.1 10^3/uL (4.8-10.8)
--- NOTE | 2024-09-28 18:37 | ED.GENMED ---
History of Present Illness
General
Chief Complaint: Chest Pain
Source: patient
Exam Limitations: none
Time Seen by Provider: 09/28/24 18:32
Nursing documentation reviewed up to this point in time: agreed with
History of Present Illness
History of Present Illness:
Patient to ED with complaint of chest pain. Started at approx 1PM, states he was at home, resting. Substernal chest pain which he states felt like prior episodes. He took a total of 3 SL NTG with relief of pain. Pain returned approx 2 hours
later and he took another SL NTG. States pain resolved and has not returned. Denies radiation of pain. Denies nausea, vomiting, diaphoresis. No SOB. Denies fever/chills, recent illness. No dizziness. Currently pain free.
Past History
Past History
ED Past Medical History: CAD, GERD, HTN and Hypercholesterolemia
ED Past Surgical History: Cardiac (multiple stents)
Review of Systems
Review of Systems
Allergies reviewed?: Yes
All Other Systems: ROS reviewed and negative except as documented in HPI and ROS
Constitutional: Reports no symptoms
EENT: Reports no symptoms
Respiratory: Reports no symptoms
Cardiac: Reports chest pain (2 episodes substernal chest pain. Both relieved with NTG)
ABD/GI: Reports no symptoms
: Reports no symptoms
Musculoskeletal: Reports no symptoms
Skin: Reports no symptoms
Neurological: Reports no symptoms
Psychiatric: Reports no symptoms
Phy Exam
General Physical Exam
General Presentation: well appearing and no apparent distress
General age: appears stated age
General Skin: warm and dry
General Habitus: normal
General Mental: alert
General Hydration: appears well hydrated
Cardiovascular Exam
Cardiovascular Exam: regular rate/rhythm and no edema
Pulmonary Exam
Pulmonary Exam: lungs clear and no respiratory distress
Musculoskeletal Exam
Musculoskeletal Exam: full ROM and neuro vasc intact
Skin Exam
Skin Exam: normal color
Psychiatric Exam
Psychiatric Exam: normal mood/affect
Scores
Heart Score for Chest Pain Patients
STEMI patient?: No
History: Moderately Suspicious
ECG: Normal
Age: >/= 65 years
Risk Factors: >/= 3 Risk Factors or History of CAD
Troponin: >/= 3 x Normal Limit
Heart Score for Chest Pain Patients: 7
Heart Score Risk: 72.7 % MACE over next 6 weeks
Course
Orders/Labs/Results
Orders:
Orders
09/28/24 17:25
Electrocardiogram (*1) Urgent
Reason for Study: Chest Pain
EKG- Treatment ONCE
09/28/24 18:24
Cardiac Monitoring- Treatment ONCE
09/28/24 18:26
Complete Blood Count/With Diff Urgent
Comprehensive Metabolic Panel Urgent
PTT Urgent
Comment: ADD ON
Prothrombin Time Urgent
Troponin I Urgent
09/28/24 20:02
Aspirin 325 mg PO NOW STA
Heparin 4,000 units IV NOW STA
Nursing to Place Non Medication Order As Directed
Physician Order: PTT 6 hours after initial start of Heparin infusion
Above order entered?: Yes
09/28/24 20:15
Heparin 37615 Units/250 ml 25,000 units in 250 ml IV PER PROTOCOL
Weight to be used for heparin protocol in kilograms (kg):: 84.9
Protocol:: Cardiac Tx/Acute Coronary
PTT Goal Range to be used:: PTT 73 to 111 seconds
Order type:: Initial
INITIAL Infusion Dose (UNITS/KG/hr) & then follow protocol:: 12 units/kg/hr
Infusion Dose in UNITS/hr & then follow protocol (UNITS/hr):: 1,000
INFUSION RATE in mL/hr & then follow protocol (mL/hr):: 10
PTT less than or equal to 64 seconds:: Increase rate by 200 units/hr (+ 2 mL/hr)
PTT 64.1 to 72.9 seconds:: Increase rate by 100 units/hr (+ 1 mL/hr)
PTT 73 to 111 seconds:: Target Range. No change in rate.
PTT 111.1 to 130.9 seconds:: Decrease rate by 100 units/hr (- 1 mL/hr)
PTT 131 to 199.9 seconds:: HOLD for 1 hr. Then decrease rate by 200 units/hr (- 2 mL/hr)
PTT greater than or equal to 200 seconds:: HOLD for 2 hrs & Notify Provider. Then decrease by 200 units/hr (-
2 mL/hr)
Lab follow-up:: Each change, PTT q6h until 2 consecutive are therapeutic. Then PTT
daily.
09/28/24 20:40
CARDIOLOGY CONSULT Urgent
Consulting Provider: Keshav Cardoso
Was physician already notified: Yes
09/28/24 20:42
Admit/Transfer Patient As Directed
Co-Sign Provider:
Level of Care: Inpatient admission
Assign to:: IVU
Physician / Group: [email or web address]
Diagnosis: NSTEMI
Reason for Hospitalization: NSTEMI
Expected length of stay greater than two midnights?: Yes
ELOS- Estimated Length of Stay in days: 3
I certify the patient meets the requirements for IP care: Yes
09/28/24 20:45
Code Status As Directed
Resuscitation Status: Full Code
09/28/24 22:01
Electrocardiogram (*1) Q6H
Reason for Study: Chest Pain
Comment: at admission and Q3H for total of 3, to be done with each troponin
0.9% Sodium Chloride [Nss (Preservative Free)] See Protocol IV PRN PRN
Amitriptyline [Elavil] 50 mg PO HS
Dextrose 50%-Water [Dextrose 50% Syringe] 12.5 grams IV [id number] PRN
FOLic ACID [Folvite] 1 mg 0.9% Sodium Chloride 50 ml [Nss] 50 ml IV DAILYPRN
Glucagon [GlucaGen] 1 mg IM PRN PRN
Lorazepam [Ativan] 1 mg IV Q1HPRN PRN
Lorazepam [Ativan] 1 mg PO Q2HPRN PRN
Lorazepam [Ativan] 2 mg IV Q1HPRN PRN
Zolpidem Tartrate [Ambien] 2.5 mg PO HSPRN PRN
09/28/24 22:01
Case Management Consult Once
Case Management Consult: Other
Comment: Substance abuse counseling
DIETARY CONSULT Routine
Reason for Consult: Nutrition support, possible refeeding guidelines
Activity As Directed
Activity Level: With Assistance
Bedside Glucose Monitoring As Directed
Frequency: AC&HS
Additional Instructions:: Change to q6h if pt on TPN, tube feeding or not eating
INT (Intravenous Needle Therapy) As Directed
Comment: maintain peripheral IV access
Intake/ Output As Directed
Frequency: Per unit guidelines
MSAS SCORE As Directed
MSAS Score 0-4: Repeat MSAS every 2 hours until 0-4 for three consecutive assessments, then every 4 hours x 48
hours.
MSAS Score 5-7: For MILD withdrawl symptoms. Repeat MSAS and RASS every 2 hours
MSAS Score 8-11: For MODERATE withdrawal symptoms. Repeat MSAS and RASS every 1 hour. Consider ICU or IMU
level of care.
MSAS Score > 11: For SEVERE withdrawal symptoms. Repeat MSAS and RASS every 1 hour. Notify provider, consider
ICU level of care.
MSAS Additional Instructions: If no improvement or no decrease in score from severe to moderate within 12
hours, consult psychiatry
MSAS Notify Provider: Notify provider if patient requires more than 10 mg of Lorazepam in eight hour period.
Vital Signs As Directed
Frequency: q4h
Weight As Directed
Frequency: Daily
09/28/24 22:16
GGTP Urgent
Glycohemoglobin (HgbA1c) Routine
Troponin I Q3H
Comment: at admit & Q3H for 3 total including ED draws, obtain ECG with each level
09/29/24 03:29
Cardiovascular Evaluation IN AM
Complete Blood Count/No Diff IN AM
Comprehensive Metabolic Panel IN AM
Troponin I Q3H
Comment: at admit & Q3H for 3 total including ED draws, obtain ECG with each level
09/29/24 04:01
Electrocardiogram (*1) Q6H
Reason for Study: Chest Pain
Comment: at admission and Q3H for total of 3, to be done with each troponin
09/29/24 07:30
Insulin Aspart Corrective Low [Novolog Flexpen-Low Resistance] See Protocol SC AC
09/29/24 08:00
Clopidogrel Bisulfate [Plavix] 75 mg PO DAILY
FOLic ACID [Folvite] 1 mg PO DAILY
ISOSORBIDE MONOnitrate ER [Imdur (Extended Release)] 30 mg PO DAILY
Pantoprazole [Protonix] 20 mg PO DAILY
Ranolazine Extended Release [Ranexa Extended Release] 500 mg PO BID
Thiamine Injection 200 mg IV Q12
09/29/24 10:01
Electrocardiogram (*1) Q6H
Reason for Study: Chest Pain
Comment: at admission and Q3H for total of 3, to be done with each troponin
09/29/24 18:00
Atenolol [Tenormin] 12.5 mg PO QPM
Atorvastatin [Lipitor] 40 mg PO QPM
Tamsulosin [Flomax] 0.4 mg PO QPM
10/02/24 08:00
Thiamine HCl [Vitamin B1] 100 mg PO BID
Abnormal Lab Results
09/28/24
18:26
WBC 4.1 L 10^3/uL
(4.8-10.8)
RBC 3.26 L 10^6/uL
(4.70-6.10)
Hgb 10.8 L g/dL
(13.0-18.0)
Hct 32.0 L %
(39.0-52.0)
MCV 98.2 H fL
(80.0-94.0)
MCH 33.1 H pg
(27.0-31.0)
Plt Count 125 L 10^3/uL
(130-400)
Absolute Lymphs (auto) 1.1 L 10^3/uL
(1.2-3.4)
Monocytes % 11.5 H %
(1.7-9.3)
PT 21.9 H Sec
(11.4-14.6)
Potassium 5.3 H mmol/L
(3.5-5.1)
BUN 30 H mg/dl
(9-20)
Creatinine 1.8 H mg/dL
(0.7-1.3)
Glucose 171 H mg/dl
(70-99)
Alkaline Phosphatase 242 H U/L
(38-126)
Troponin I 0.041 H* ng/ml
09/28/24 18:26
09/28/24 18:26
Vital Signs
Initial and Last Documented VS:
Initial Vital Signs
Temp Pulse Resp BP Pulse Ox
98.2 F 82 16 162/78 100
09/28/24 17:28 09/28/24 17:28 09/28/24 17:28 09/28/24 17:28 09/28/24 17:28
Last Documented Vital Signs
Temp Pulse Resp BP Pulse Ox
97.8 F 55 20 121/61 96
09/29/24 12:08 09/29/24 12:06 09/29/24 12:08 09/29/24 12:06 09/29/24 12:08
*Pulse Oximetry
Patient hypoxic: no
*Critical Care Note
Total Time (30-74mins, 75-104mins- exclusive of procedures): Not Applicable
Update Note
Update Note:
Patient to ED with complaint of 2 episodes substernal chest pain. 1st episode resolved after 3 SL NtG. 2nd episode resolved after 1 SL NTG. On arrival to ED he is pain. Denies any associated symptoms but states chest pain today is similar to
prior episodes that required stenting. last stent placed 05/2024. VSS. Troponin 0.[address] Cardoso consulted. Patient to be admitted to hospitalist service. Heparin infusion initiated in ED. INR 2 days ago 3.2. Held dose of coumadin
yesterday. TOday INR 1.8. WIll continue to trend EKG's and Troponins. Patient admitted to hospitialist service. Discussed case with Dr. Mccoy who agrees with findings and plan.
ED Attending Note
-
Portions of this chart may have been created with voice recognition software.� Occasional wrong word or��sound alike� substitutions may have occurred due to the inherent limitations of voice recognition software.
Discharge Plan
Departure
Patient Disposition: Admit
Date of Disposition: 09/28/24
Time of Disposition: 19:16
Presentation/result/management discussed w/ accepting MD/DO: Hospitalist
Patient with high blood pressure during this ER visit?: No
Condition: Fair
Discharge Problem:
Acute non-ST elevation myocardial infarction (NSTEMI)
Interventions
Interventions:
*Risk Screen - Suicide Last Done: 09/28/24 17:29
*General Assessment Last Done: 09/28/24 18:09
*Neglect/Abuse Screening Last Done: 09/28/24 17:29
ED- Fall Risk Assessment Last Done: 09/28/24 18:09
*ED COVID-19 Vaccine History Last Done: 09/28/24 22:25
*Nursing Disposition Last Done: 09/28/24 22:00
ED- Cardiac Assessment Last Done: 09/28/24 18:09
Discharge Date and Time
Discharge Date/Time: 09/28/24 22:05
[2024-09-28 18:45] LABS: INR 1.89; PT 21.9 Sec (11.4-14.6)
[2024-09-28 18:48] LABS: ALT (SGPT) 17 U/L (0-50); AST (SGOT) 18 U/L (17-59); Albumin 4.1 g/dl (3.5-5.0); Alkaline Phosphatase 242 U/L (38-126); Blood Urea Nitrogen 30 mg/dl (9-20); Calcium 9.7 mg/dl (8.4-10.2); Carbon Dioxide 27 mmol/L (22-30); Chloride 104 mmol/L (98-107); Estimated Creatinine Clearance 29 ml/min; Glucose 171 mg/dl (70-99); Potassium 5.3 mmol/L (3.5-5.1); Sodium 138 mmol/L (135-145); Total Bilirubin 1.2 mg/dl (0.2-1.3); Total Protein 6.5 g/dl (6.3-8.2); eGFR 36.21
[2024-09-28 19:05] LABS: Troponin I 0.041 ng/ml
--- NOTE | 2024-09-28 20:35 | HPS.HSE ---
Addendum entered and electronically signed by Ambrose Elaine MD 09/28/24 21:05:
Admission order: switch to IVU in place of IMU.
Original Note:
Family Physician
-
Family Physician: Moises Moore
Chief Complaint
-
CP
History of Present Illness
84M HX CAD status post cardiac stents, HLD, PE on Coumadin, ETOH use disorder , chr pancytopenia, aortic stenosis, HTN, DMT2, CKD3, gout, BPH seen at ER;
- report hest pain started at approx 1PM while he was at home, resting.
- described as SSCP which he states felt like prior episodes.
- total of 3 SL NTG with relief of pain.
- Then Pain returned approx 2 hours later and he took another SL NTG- then pain resolved and has not returned.
- Currently pain free.
ROS:
Denies radiation of pain. Denies nausea, vomiting, diaphoresis. No SOB. Denies fever/chills, recent illness. No dizziness.
Medical History
Past Medical History
Past Medical History: Reports Other
Additional Past Medical History:
severe CAD status post multiple caths PCI procedures with 15 stents total most recent June 2023
Provoked PE 2011 from prolonged travel on current warfarin
mild aortic stenosis peak mean gradient 15 mmHg March 2024 echo,
HTN
gout
DM 2
chronic thrombocytopenia unclear
Daily alcohol use
macrocytic anemia
? CKD 3B
anxiety
depression
insomnia
BPH
GERD
CREEK
Lyme's disease finished treatment March 2023 doxycycline
Past Surgical History: Reports Other
Additional Past Surgical History:
Multiple cardiac stents x 15 last 30 June 2023 at [facility]
Bilateral shoulder surgeries
Disc repair lumbar spine
Right arm surgery times 10/16/1969
Social History
Tobacco: Former Smoker (Cigars for 5 years quit 1965)
Alcohol: Daily (1 beer or 2 glasses red wine or 1 cocktail philip real whiskey)
Drug: None
Personal:
Living: With Family ( Vidya)
Employment: Retired
Family History
Family History: Other (Mother MS age 82 history DM2, father age 68 history of gastric cancer and MS during cancer treatment)
Allergies / Home Medications
Allergies reflects when Allergies were last updated in [facility].
Home Medications with original date entered in [facility]
Allergy/Medication List:
Allergies
Allergy/AdvReac Type Severity Reaction Status Date / Time
amoxicillin trihydrate Allergy Unknown Verified 09/10/12 11:34
[From Augmentin]
potassium clavulanate Allergy Unknown Verified 09/10/12 11:34
[From Augmentin]
quinidine Allergy Unknown Verified 09/10/12 11:34
Home Medications
acetaminophen 500 mg tablet (Tylenol Extra Strength) 500 mg PO Q6HPRN PRN mild pain 06/06/24
allopurinol 300 mg tablet 150 mg PO DAILY Gout 06/06/24
amitriptyline 50 mg tablet 50 mg PO HS depression/sleep 06/06/24
atenolol 25 mg tablet 12.5 mg PO DAILY Blood Pressure 06/06/24
atorvastatin 40 mg tablet 40 mg PO QPM High Cholesterol 06/06/24
cholecalciferol (vitamin D3) 125 mcg (5,000 unit) tablet (Vitamin D3) 125 mcg PO DAILY Supplement 06/06/24
clopidogrel 75 mg tablet 75 mg PO DAILY Blood Clot Prevention/Tx 06/06/24
coenzyme Q10 100 mg capsule (CoQ-10) 100 mg PO QPM Supplement 06/06/24
cyanocobalamin (vitamin B-12) 1,000 mcg tablet 1,000 mcg PO QPM Supplement 06/06/24
isosorbide mononitrate 30 mg tablet,extended release 24 hr 30 mg PO DAILY Heart Disease/Condition 06/06/24
lansoprazole 15 mg delayed release,disintegrating tablet 15 mg PO DAILY Gastrointestinal Issue 06/06/24
lorazepam 0.5 mg tablet 0.5 mg PO DAILYPRN PRN anxiety 06/06/24
ranolazine 500 mg tablet,extended release,12 hr 500 mg PO BID Heart Disease/Condition 06/06/24
tamsulosin 0.4 mg capsule 0.4 mg PO QPM Urinary Issue 06/06/24
valsartan 80 mg tablet 80 mg PO DAILY Blood Pressure 06/06/24
warfarin 3 mg tablet (Jantoven) 3 mg PO DAILY Blood Clot Prevention/Tx 06/06/24
zolpidem 5 mg tablet 2.5 mg PO HSPRN PRN sleep 06/06/24
Review of Systems
-
History Source: Patient
A 12 point ROS was completed and negative except as noted: Yes
Constitutional: Denies Fever, Fatigue or Chills
EENT: Denies Sore Throat or Runny Nose
Respiratory: Denies Cough or Trouble Breathing
Cardiac: Reports Chest Pain (Midsternal at rest); Denies Palpitations or Syncope
Abdomen/GI: Denies Abdominal Pain, Nausea, Vomiting, Diarrhea, Constipated, Bloody Stools or Black Stools
: Denies Dysuria, Frequency, Flank Pain, Incontinence, Difficulty Voiding or Urgency
Musculoskeletal: Reports Edema (Trace bilateral ankles); Denies Joint Pain
Skin: Denies Itching or Rash
Neurological: Denies Dizzy, Headache or Weakness
Endocrine: Reports No Symptoms
Hematologic/Lymphatic: Reports No Symptoms
Psych: Reports Calm
Physical Exam
Vital Signs
Vital Signs
Temp Pulse Resp BP Pulse Ox
98.2 F 72 15 157/70 97
09/28/24 17:28 09/28/24 19:30 09/28/24 19:30 09/28/24 19:00 09/28/24 19:30
Physical Exam
General: Comfortable and Conversant; No Pain, Fever or Chills
HEENT: NormoCephalic, Anicteric, Moist mucous membranes, PERRLA, Colome Conjunctivae, No Ptosis and Hearing Impaired
Respiratory: Clear; No Wheezes, Rales or Rhonchi
Cardiac: S1/S2, Regular Rhythm and Peripheral Edema (Trace bilateral ankles); No Murmur, Rub, Gallop, JVD or Carotid Bruits
Breast: Deferred by me
GI: Soft, Non Tender, Non Distended, Normal Bowel Sounds and No Hepatosplenomegaly
Rectal: Deferred by Provider
Genito-urinary: Deferred by me
Musculoskeletal: No Clubbing, No Cyanosis, Edema, Left Lower Extremity (Trace) and Edema, Right Lower Extremity (Trace); No Edema, Left Upper Extremity or Edema, Right Upper Extremity
Skin: Warm and Dry; No Rash, Jaundice or Ulcers
Neuro: AO x 3, No Motor Deficits, Nonfocal/grossly intact, Cranial Nerves Intact and Other (Slight CREEK); No Slurred Speech, Facial Droop, Tremors or Sedated
Psych: Calm
Laboratory Results
-
09/28/24 18:26
09/28/24 18:26
Laboratory Results
PT 21.9 Sec (11.4-14.6) H 09/28/24 18:26
INR 1.89 09/28/24 18:26
Total Bilirubin 1.2 mg/dl (0.2-1.3) 09/28/24 18:26
AST 18 U/L (17-59) 09/28/24 18:26
ALT 17 U/L (0-50) 09/28/24 18:26
Alkaline Phosphatase 242 U/L (38-126) H 09/28/24 18:26
Troponin I 0.041 ng/ml H* 09/28/24 18:26
Data Reviewed
-
Medical Tests (Nuc Med, Echo, EKG etc): Report Reviewed by me
Lab Data: Labs Reviewed by me
Old Records: Reviewed
Impression/Plan
-
Reviewed VS:
Vital Signs
Temp Pulse Resp BP Pulse Ox
98.2 F 72 15 157/70 97
09/28/24 17:28 09/28/24 19:30 09/28/24 19:30 09/28/24 19:00 09/28/24 19:30
Laboratory Tests
06/08/24 09/28/24
04:05 18:26
WBC 4.3 L 4.1 L
Hgb 11.9 L 10.8 L
Plt Count 104 L 125 L
INR 1.89
Potassium 5.3 H
BUN 30 H
Creatinine 1.4 H 1.8
eGFR 48.95 36.21
Glucose 171 H
Troponin I 0.041 H*
EKG
SINUS RHYTHM WITH OCCASIONAL PREMATURE VENTRICULAR COMPLEXES
NONSPECIFIC ST AND T WAVE ABNORMALITY
PROLONGED QT
ABNORMAL ECG
WHEN COMPARED WITH ECG OF 08-JUN-2024 04:32,
PREMATURE VENTRICULAR COMPLEXES ARE NOW PRESENT
VENT. RATE HAS INCREASED BY 27 BPM
NONSPECIFIC T WAVE ABNORMALITY NOW EVIDENT IN ANTERIOR LEADS
04/24/2024 TTE:
LVEF 60 to 65%
Stage I diastolic dysfunction
no wall abnormalities,
mildly dilated left atrium
mild aortic stenosis peak gradient 25 mmHg
mild TR.
Pul arterial pressure 34 mmHg
mild pulmonic regurgitation
Last hospitalist admission: Date of Admission: 06/06/24 - Date of Discharge: 06/08/24
ASSESSMENT & PLAN
Elevated TPNI
CP relieved by SL NTG: currently CP free
Presumed ACS /Unstable angina
HX CAD with stents; Last LAD stent in May 2024
HX severe CAD status post multiple cath PCI procedures with 15 stents total
- agree with Heparin gtt thus stop coumadin for now
- SL NTG PRN
- c/w IMN and atenolol
- c/w Plavix
- Trend TPNI
- EKG in AM
- NPO after MN
- CBC Card consulted
CAD
06/07/24 CC: LAD was stented.
- on PRODUCE BUYER Plavix
- on Statin
- on PRODUCE BUYER Atenolol, IMN and Ranolazine
Benign HTN
- PRODUCE BUYER Atenolol
- Hold Valsartan due to DIANA
HLD
- on PRODUCE BUYER atorvastatin
Chronic daily alcohol use disorder: 1 beer or 2 glasses red wine or 1 cocktail philip real whiskey
- Last drink yesterday luch time
- MSAS screen with protocol thiamine folate
Chr pancytopenia ? chr livr dz or ETOHlism
- Trend CBC
DIANA with Cr 1.8
CKD3a with baseline Cr 1.4, eGFR hi 40s
- Hold Valsartan due to DIANA
DMT2
- add ISS low
HX PE on Chr warfarin
Sub Rx- tic INR
Provoked PE 2011 from prolonged travel on current warfarin
- Hold Warfarin
BPH
- on PRODUCE BUYER Tamsulosin
Depression/Anxiety
- on amitriptyline 50 mg at bedtime
- on lorazepam 0.5 mg p.o. daily as needed
DVT Px: on Heparin gtt
Full code
IMU
[2024-09-28 21:06] LABS: APTT 29.7 Sec (23.4-35.0)
[2024-09-28] MEDS: ASPIRIN 325 MG PO (21:11)
[2024-09-28] MEDS: HEPARIN 4000 UNITS IV (21:23)
[2024-09-28] MEDS: HEPARIN 25000 UNITS/250 ML IV (21:24)
[2024-09-28 22:45] LABS: GGTP 15 U/L (15-73)
[2024-09-28] MEDS: ELAVIL 50 MG PO (22:51)
[2024-09-28 22:52] LABS: Troponin I 0.036 ng/ml
[2024-09-28 22:56] LABS: Glucose - Point of Care 132 mg/dl (70-99)
--- NOTE | 2024-09-28 23:30 | PTCARENOTE ---
Rec'd pt. from ED AAOx3, NSR with frequent PVC's/bigeminy on the monitor; heparin gtt infusing at 1000 units/hr. Pt. denies any chest pain/discomfort. EKG and troponin completed. Pt. oriented to room and plan of care discussed, understanding
verbalized. Pt. currently resting quietly.
[2024-09-29] VITALS (7 sets, daily range): BP systolic 109–159; BP diastolic 52–67; BMI 26.3
[2024-09-29] MEDS: FLOMAX 0.4 MG PO ×2 (00:17→17:15)
[2024-09-29] MEDS: TENORMIN 12.5 MG PO ×2 (00:17→17:16)
[2024-09-29 03:54] LABS: Hematocrit 29.9 % (39.0-52.0); Hemoglobin 10.5 g/dL (13.0-18.0); Mean Corp Hgb Conc. 35.1 g/dL (33.0-37.0); Mean Corpuscular Hgb 33.3 pg (27.0-31.0); Mean Corpuscular Volume 94.9 fL (80.0-94.0); Platelet Count 106 10^3/uL (130-400); Red Blood Cell Count 3.15 10^6/uL (4.70-6.10); White Blood Cell Count 4.6 10^3/uL (4.8-10.8)
[2024-09-29 04:08] LABS: ALT (SGPT) 16 U/L (0-50); AST (SGOT) 18 U/L (17-59); Albumin 3.5 g/dl (3.5-5.0); Alkaline Phosphatase 191 U/L (38-126); Blood Urea Nitrogen 29 mg/dl (9-20); Calcium 9.2 mg/dl (8.4-10.2); Carbon Dioxide 23 mmol/L (22-30); Chloride 106 mmol/L (98-107); Estimated Creatinine Clearance 33 ml/min; Glucose 137 mg/dl (70-99); HDL Cholesterol 44 mg/dl; LDL Cholesterol, Calculated 47 mg/dl; Potassium 4.3 mmol/L (3.5-5.1); Sodium 136 mmol/L (135-145); Total Bilirubin 1.2 mg/dl (0.2-1.3); Total Cholesterol 110 mg/dl (50-199); Triglyceride 99 mg/dl (10-149); Very Low Density Lipoprotein 19 mg/dl (0-30)
[2024-09-29 04:13] LABS: Troponin I 0.036 ng/ml
[2024-09-29 04:28] LABS: APTT > 200 Sec (23.4-35.0)
[2024-09-29 07:53] LABS: Glucose - Point of Care 167 mg/dl (70-99)
[2024-09-29] MEDS: IMDUR (EXTENDED RELEASE) 30 MG PO (08:33)
[2024-09-29] MEDS: PLAVIX 75 MG PO (08:33)
[2024-09-29] MEDS: RANEXA EXTENDED RELEASE 500 MG PO (08:33)
[2024-09-29] MEDS: FOLVITE 1 MG PO (08:33)
[2024-09-29] MEDS: THIAMINE INJECTION 200 MG IV ×2 (08:33→19:40)
[2024-09-29] MEDS: PROTONIX 20 MG PO (08:33)
[2024-09-29] MEDS: NOVOLOG FLEXPEN-LOW RESISTANCE SC ×3 (09:19→17:15)
--- NOTE | 2024-09-29 09:31 | W.PN.HOSP.TC ---
Today's Communication/Plan
-
Heparin drip. Cardiology consult.
Assessment / Plan
Assessment / Plan
Physical exam:
General: Well Developed, Well Nourished and No Apparent Distress
HEENT: Normocephalic, Atraumatic and Moist Mucous Membranes
Respiratory: Clear to Auscultation; Negative Wheezes, Rales or Rhonchi
Cardiac: Regular Rhythm and S1/S2
GI: Soft, Nontender and Nondistended
Musculoskeletal: No Clubbing, No Cyanosis and No Edema
Neuro: Awake, Alert and Oriented, no gross neurological deficits
Psych: Calm
A/P:
Non-STEMI:
Continue IV heparin drip
Continue ACS protocol
On antiplatelets, beta-blockers, statins, and Ranexa
Continue cardiac monitoring
Continue trending cardiac enzymes
Cardiology consult pending
CAD:
Continue current anti-ischemic regimen
Hypertension:
Continue antihypertensives
Hyperlipidemia:
Continue home statins
Diabetes mellitus type 2:
Diabetic diet
Insulin sliding scale
Hemoglobin A1c 6.9
Alcohol use disorder:
On MSA protocol
Continue thiamine and folate
No evidence of alcohol withdrawal at the moment
Pancytopenia:
Trend CBC
Elevated alkaline phosphatase:
trend lft
DIANA on CKD:
Avoid nephrotoxic
Monitor renal function
History of PE:
Currently on heparin drip
Holding oral anticoagulant
Depression:
Continue amitriptyline
GERD:
Continue PPI
BPH
Continue Flomax
DVT prophylaxis:
Heparin drip
CODE STATUS:
Full code
Total time spent on today's encounter was 52 minutes which included time spent in counseling the patient/family regarding diagnosis and treatment plan as listed above, goals of care, and symptom management. Case was discussed with nursing staff,
specialists, and care coordinators/case management. All labs and imaging personally reviewed by me. Remainder the time spent in detailed review of previous records, lab data, imaging, and other medical provider documentation.
Anticipated Discharge: > 48 hours
Subjective/Interval History
-
Date of Service: September 29, 2024
Patient denies any chest pain or shortness of breath today. Afebrile
Objective Data
-
Labs:
Laboratory Results
09/29/24 09/29/24
03:29 12:30
WBC 4.6 L
Hgb 10.5 L
Hct 29.9 L
Plt Count 106 L
APTT > 200 H* Pending
Sodium 136
Potassium 4.3
Chloride 106
Carbon Dioxide 23
BUN 29 H
Creatinine 1.6 H
Glucose 137 H
Calcium 9.2
Total Bilirubin 1.2
AST 18
ALT 16
Alkaline Phosphatase 191 H
Vital Signs:
Vital Signs
Temp Pulse Resp BP Pulse Ox
97.7 F 58 20 142/58 97
09/29/24 07:50 09/29/24 05:00 09/29/24 07:50 09/29/24 03:22 09/29/24 07:50
I&O
09/28/24 09/29/24 09/30/24
06:59 06:59 06:59
Intake Total 240 / 240
Output Total 200 / 200
Balance 40 / 40
[2024-09-29 10:46] LABS: Glycohemoglobin (HgbA1c) 6.9 % (4.0-5.6)
[2024-09-29 12:15] LABS: Glucose - Point of Care 169 mg/dl (70-99)
--- NOTE | 2024-09-29 16:29 | PTCARENOTE ---
09/29/24 Received patient from previous shift in bed, AAO x3, IV Heparin infusing at 800 units/hour. Pt on electronic device monitor Sinus Yogesh w/1st degree heart block. VSS, Pt on room air. Pt with no complaints of headache, dizziness, chest pain or
palpitations.
[2024-09-29] MEDS: LIPITOR 40 MG PO (17:16)
[2024-09-29 17:19] LABS: Glucose - Point of Care 167 mg/dl (70-99)
[2024-09-29] MEDS: RANEXA EXTENDED RELEASE 1000 MG PO (19:39)
[2024-09-29] MEDS: ELAVIL 50 MG PO (19:43)
[2024-09-29 19:55] LABS: APTT 67.6 Sec (23.4-35.0)
--- NOTE | 2024-09-29 20:09 | CON.CAR ---
Addendum entered and electronically signed by Keshav Cardoso MD 09/29/24 20:34:
Correction: Warfarin held for possible LHC. Patient on heparin infusion.
Original Note:
Consultation
Consultation Request
Date/Time Consultation Requested: 09/28/24 @ 20:40
Date/Time Consultation Performed: 09/29/24 @ 5:30 PM
Requesting Provider: Bekah Brar NP
Performing Provider: Keshav Cardoso MD
Reason for Consultation: chest pain
Medical History
-
Chief Complaint: CP
History of Present Illness:
Primary: Moises Moore MD
Cardiology: Willis Zuniga MD
84 yo man with severe CAD s/p multiple cath and PCI procedures most recently LAD stent in May 2024, PE on Warfarin, HTN, DM, mild . He tells me he has total of 16 stents. No hx CABG. He has chronic WINTERS and exertional angina after walking about 75
yards- this chest pressure dissipates when he slows his pace. He was in his USOH until last evening when he developed chest pressure while walking around his apartment. Resolved with SL nitro initially but then returned so he presented to ED. He
is chest pain free at time of my interview. Chest pain has not recurred since admission but he has not been up and walking around.
Past Medical History
Past Medical History: Other (as above)
Family History
Family History: Reviewed & Not Pertinent
Allergies / Home Medications
Allergy/AdvReac Type Severity Reaction Status Date / Time
amoxicillin trihydrate Allergy Unknown Verified 09/10/12 11:34
[From Augmentin]
potassium clavulanate Allergy Unknown Verified 09/10/12 11:34
[From Augmentin]
quinidine Allergy Unknown Verified 09/10/12 11:34
�Medication �Instructions �Recorded �Confirmed �Type
amitriptyline 50 mg tablet 50 mg PO HS depression/sleep 06/06/24 09/28/24 History
atorvastatin 40 mg tablet 40 mg PO QPM High Cholesterol 06/06/24 09/28/24 History
cholecalciferol (vitamin D3) 125 125 mcg PO DAILY Supplement 06/06/24 09/28/24 History
mcg (5,000 unit) tablet (Vitamin
D3)
clopidogrel 75 mg tablet 75 mg PO DAILY Blood Clot 06/06/24 09/28/24 History
Prevention/Tx
coenzyme Q10 100 mg capsule 100 mg PO QPM Supplement 06/06/24 09/28/24 History
(CoQ-10)
cyanocobalamin (vitamin B-12) 1,000 mcg PO QPM Supplement 06/06/24 09/28/24 History
1,000 mcg tablet
isosorbide mononitrate 30 mg 30 mg PO DAILY Heart 06/06/24 09/28/24 History
tablet,extended release 24 hr Disease/Condition
lansoprazole 15 mg delayed 15 mg PO DAILY Gastrointestinal 06/06/24 09/28/24 History
release,disintegrating tablet Issue
ranolazine 500 mg tablet,extended 500 mg PO BID Heart 06/06/24 09/28/24 History
release,12 hr Disease/Condition
tamsulosin 0.4 mg capsule 0.4 mg PO QPM Urinary Issue 06/06/24 09/28/24 History
valsartan 80 mg tablet 80 mg PO QPM Blood Pressure 06/06/24 09/28/24 History
warfarin 3 mg tablet (Jantoven) 3 mg PO SuMoWeFrSa@0800 Blood Clot 06/06/24 09/28/24 History
Prevention/Tx
zolpidem 5 mg tablet 2.5 mg PO HSPRN PRN sleep 06/06/24 09/28/24 History
atenolol 25 mg tablet 12.5 mg PO QPM Blood Pressure 09/28/24 09/28/24 History
warfarin 3 mg tablet 1.5 mg PO TUTH@0800 Blood Clot 09/28/24 09/28/24 History
Prevention/Tx
Review of Systems
-
All other systems: Negative unless noted
Physical Exam
Vital Signs
Temp Pulse Resp BP Pulse Ox
97.7 F 59 16 137/58 96
09/29/24 18:56 09/29/24 18:56 09/29/24 18:56 09/29/24 18:56 09/29/24 18:56
Lab Results
09/29/24 03:29
09/29/24 03:29
Troponin I 0.036 ng/ml H* 09/29/24 03:29
Physical Exam
General: Well Developed and Well Nourished
HEENT: Normocephalic and Anicteric
Respiratory: Clear and Non Labored Respirations
Cardiac: S1/S2, Regular Rhythm and Murmur; Negative Peripheral Edema
Neuro: AO x 3
Impression / Plan
-
84 yo man with severe CAD s/p multiple cath and PCI procedures most recently LAD stent in May 2024, PE on Warfarin, HTN, DM, mild who presents with chest pain concerning for accelerating angina.
Chest pain
-Concerning for accelerating chronic angina. Trop 0.041 -> 0.036. Nonischemic ECG
-Last [facility] 06/06/24: mild ISR of prox-mid LAD, 90% mid-distal LAD (TREY), 40% distal LAD; 40-50% ISR of ostial Lcx, 60% ISR ostial OM1, 30% ISR of RCA
-Will attempt medical management. Increase Ranolazine to 1,000mg BID. Increase isosorbide to 60mg daily. Continue Atenolol. Bradycardia precludes additional BB
-Would like to see him up and walking around tomorrow with these med changes. If no improvement in symptoms, will proceed to [facility] on Monday
-Echo tomorrow to look for new WMAs
Chronic CAD with 16 stents
-Most recent [facility] as above
-Increase antianginals
-Continue Plavix and Atorvastatin. No ASA due to systemic AC. LDL 47
-Consider adding Ezetimibe
PE: continue Warfarin, trend INR
HTN: continue Valsartan
Data Reviewed
-
EKG: Tracing Personally Visualized and interpreted, Discussed with Physician and Discussed with Patient
Medical Tests (Nuc Med, Echo etc): Report Reviewed by me
Labs: Labs Reviewed by me, Discussed with Physician and Discussed with Patient
Old Records: Reviewed
[2024-09-29 22:07] LABS: Glucose - Point of Care 118 mg/dl (70-99)
--- NOTE | 2024-09-30 00:10 | PTCARENOTE ---
Pt. has no complaints of chest pain so far this shift, VSS, NSR to SB (50's) on the monitor. OOB to void. Heparin gtt infusing as per order. Pt. currently sleeping.
[2024-09-30 02:16] VITALS: BP 144/61
[2024-09-30 02:18] VITALS: BMI 26.4
[2024-09-30] MEDS: HEPARIN 25000 UNITS/250 ML IV (02:22)
[2024-09-30 03:10] LABS: Hematocrit 30.6 % (39.0-52.0); Hemoglobin 10.5 g/dL (13.0-18.0); Mean Corp Hgb Conc. 34.3 g/dL (33.0-37.0); Mean Corpuscular Hgb 33.4 pg (27.0-31.0); Mean Corpuscular Volume 97.5 fL (80.0-94.0); Mean Platelet Volume 9.7 fL (7.4-10.4); Platelet Count 102 10^3/uL (130-400); Red Blood Cell Count 3.14 10^6/uL (4.70-6.10); White Blood Cell Count 3.9 10^3/uL (4.8-10.8)
[2024-09-30 03:36] LABS: Troponin I 0.025 ng/ml
[2024-09-30 03:54] LABS: Blood Urea Nitrogen 37 mg/dl (9-20); Calcium 9.8 mg/dl (8.4-10.2); Carbon Dioxide 22 mmol/L (22-30); Chloride 106 mmol/L (98-107); Estimated Creatinine Clearance 29 ml/min; Glucose 145 mg/dl (70-99); Potassium 4.4 mmol/L (3.5-5.1); Sodium 136 mmol/L (135-145); eGFR 36.21
[2024-09-30 06:00] VITALS: BMI 26.4
[2024-09-30 08:09] VITALS: BP 123/55
[2024-09-30] MEDS: FOLVITE 1 MG PO (08:15)
[2024-09-30] MEDS: RANEXA EXTENDED RELEASE 1000 MG PO (08:15)
[2024-09-30] MEDS: IMDUR (EXTENDED RELEASE) 60 MG PO (08:15)
[2024-09-30] MEDS: PROTONIX 20 MG PO (08:15)
[2024-09-30] MEDS: THIAMINE INJECTION 200 MG IV (08:16)
[2024-09-30] MEDS: PLAVIX 75 MG PO (08:16)
[2024-09-30 08:26] LABS: Glucose - Point of Care 146 mg/dl (70-99)
[2024-09-30] MEDS: NOVOLOG FLEXPEN-LOW RESISTANCE SC (08:26)
--- NOTE | 2024-09-30 09:08 | PTCARENOTE ---
Assumed care of pt from night RN. Pt received awake and alert, Ox3. VSS, CM shows SB 50's, POX 97% on RA. Heparin infusing through LAC at 900 u/hr, next PTT due at 0830. Echo done at bedside. Pt denies any pain or discomfort, ambulating freely
in room.
--- NOTE | 2024-09-30 09:08 | W.PN.CD ---
Addendum entered and electronically signed by Richard Medina MD 09/30/24 14:12:
I have no objection to patient resuming cardiac rehab on increased medical therapy. Benefits outweigh the risks.
Addendum entered and electronically signed by Richard Medina MD 09/30/24 11:31:
I saw and examined the patient.
The DIRECTOR WEIGHTS [employer] MEASURES's note was reviewed and I agree with the note.
Comment: He has ambulated more and has not had chest pain. He told me last chest pain was on Monday. Ok for home on increased meds.
Original Note:
Today's Communication / Plan
-
Ambulate and assess for chest pain.
Impression / Plan
-
IMPRESSION/PLAN: 84M with severe CAD s/p multiple cath and PCI procedures most recently LAD stent in May 2024, PE on Warfarin, HTN, DM, mild who presents with chest pain concerning for accelerating angina.
Administrative Assistant: Dr. Willis Zuniga
Chest pain
-Concerning for accelerating chronic angina. Trop 0.041 -> 0.036. Nonischemic ECG
-Last [facility] 06/06/24: mild ISR of prox-mid LAD, 90% mid-distal LAD (TREY), 40% distal LAD; 40-50% ISR of ostial Lcx, 60% ISR ostial OM1, 30% ISR of RCA
-Will attempt medical management:
-Ranolazine increased from 500mg BID to 1,000mg BID
-Isosorbide 30mg to 60mg daily
-Continue Atenolol 12.5mg. Bradycardia precludes additional BB titration.
-Ambulate today after morning medications
-Echocardiogram today to evaluate for WMA
CAD, chronic with 16 stents
-Multivessal CAD with numerous stents in all three epicardial vessels
-On warfarin and clopidogrel, now on heparin gtt. No ASA due to systemic AC
-Increase antianginals as above
-Continue atorvastatin, LDL 47
CKD, chronic and stable
PE: continue Warfarin, trend INR
HTN: follow with changes in medical therapy, can decrease Valsartan if we need more BP room
Pre-diabetes, Hgba1c 6.9%
Daily EtOH, on MSAS protocol
Former smoker, continued cessation recommended
SUBJECTIVE:
No chest discomfort.
DATA:
Cardiac catheterization, 06/07/2024:
1:�Multivessel CAD as described. This patient has numerous stents in all 3 epicardial vessels. The culprit lesion for his unstable angina is felt to be a new 90% mid to distal LAD lesion in a previously unstented segment of vessel.
2:�Successful stenting of 90% mid to distal LAD stenosis using 2.25 x 26 [place] TREY with outstanding angiographic result.
Physical Exam
Vital Signs/Labs
Vital Signs
Temp Pulse Resp BP Pulse Ox
97.9 F 64 16 123/55 97
09/30/24 08:13 09/30/24 08:13 09/30/24 08:13 09/30/24 08:09 09/30/24 09:01
09/29/24 09/30/24 10/01/24
06:59 06:59 06:59
Actual Weight 81.4 kg 81 kg
09/30/24 02:23
09/30/24 02:23
PT 21.9 Sec (11.4-14.6) H 09/28/24 18:26
INR 1.89 09/28/24 18:26
APTT 93.0 Sec (23.4-35.0) H 09/30/24 02:23
Triglycerides 99 mg/dl (10-149) 09/29/24 03:29
LDL Cholesterol, Calc 47 mg/dl 09/29/24 03:29
VLDL Cholesterol, Calc 19 mg/dl (0-30) 09/29/24 03:29
HDL Cholesterol 44 mg/dl 09/29/24 03:29
LAB Results
09/28/24 09/28/24 09/29/24
18:26 22:16 01:01
Troponin I 0.041 H* 0.036 H* Cancelled
09/29/24 09/30/24
03:29 02:23
Troponin I 0.036 H* 0.025
Physical Exam
Constitutional: No acute distress and Comfortable
EENT: Anicteric and Moist mucous membranes
Cardiovascular: Rhythm & rate is regular and Pedal edema is absent
Respiratory: Respiratory effort normal and Lungs clear to auscul.
GI: Distention absent, Flat, Non tender and Normal bowel sounds
Neuro/Psych: AO x 3
Other: Skin (warm and dry)
Data Reviewed
-
Date of Service: September 30, 2024
Echo: Report Reviewed by me
Medical Tests (PFT, Pathology etc): Report Reviewed by me
Labs: Labs Reviewed by me
Old Records: Reviewed
[2024-09-30 09:20] LABS: APTT 89.4 Sec (23.4-35.0)
[2024-09-30 11:36] VITALS: BP 88/66
[2024-09-30 11:38] VITALS: BP 106/42
[2024-09-30 12:06] LABS: Glucose - Point of Care 195 mg/dl (70-99)
[2024-09-30] MEDS: NOVOLOG FLEXPEN-LOW RESISTANCE 1 UNITS SC (12:07)
[2024-09-30] MEDS: COUMADIN 3 MG PO (12:18)
--- NOTE | 2024-09-30 12:20 | PTCARENOTE ---
Heparin drip D/C'd as ordered, Coumadin 3 mg given po as per SEP.
--- NOTE | 2024-09-30 12:24 | W.PN.HOSP.TC ---
Today's Communication/Plan
-
d/c
Assessment / Plan
Assessment / Plan
84yo M with PMHX of CAD s/p PCI, most recent stent in May 2024, pulmonary embolism on Warfarin, HTN, DM, mild , BPH, insomnia came after episode of chest pain, typical for his usual stable angina pain, but appeared at rest, managed for posible
NSTEMI. Symptoms did not recur and blocker and polisher gold wheel adjusted medications with recommendations to discharge home. Medically stable for d/c on existent warfarin - one dose upon d/c, then cont usual home dose and repeat INR in 2 days upon d/c - patient
verbalized understanding of the instructions, Echo unchanged sine March 2024 and reviewed with blocker and polisher gold wheel. No new wall motion abnormality or EF drop
A/P:
#Chest pain, most likely stable angina
#CAD s/p PCI
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
#Chronic mild thrombocytopenia
#Chronic anemia
#Chronic leukopenia
since fall 2023
Alcohol induced?
THiamine/Folate cont
Outpatient hematology referral
#Chronic Alk.phos elevation
no abd pain
possibly bone origin
DEXA with PCP
#CKD stage 3a-b
#Hx of pulmonary embolism (remote history)
#Essential HTN
#DM type 2 with nephropathy
#Daily ETOH
#MDD
counseled to avoid alcohol
cont home meds
Low carb diet
INR in 2 days - patient verbalized understanding
DVT ppx coumadin
Full code
I have spent at least 38min reviewing chart, test results, communication with consultants and providing direct patient care
Anticipated Discharge: Within 24 hours
Subjective/Interval History
-
Date of Service: September 30, 2024
Objective Data
-
Labs:
Laboratory Results
09/30/24 09/30/24
02: 08:53
WBC 3.9 L
Hgb 10.5 L
Hct 30.6 L
Plt Count 102 L
APTT 93.0 H 89.4 H
Sodium 136
Potassium 4.4
Chloride 106
Carbon Dioxide 22
BUN 37 H
Creatinine 1.8 H
Glucose 145 H
Calcium 9.8
Vital Signs:
Vital Signs
Temp Pulse Resp BP Pulse Ox
97.4 F 49 16 106/42 100
09/30/24 11:34 09/30/24 11:38 09/30/24 11:34 09/30/24 11:38 09/30/24 11:34
I&O
09/29/24 09/30/24 10/01/24
06:59 06:59 06:59
Intake Total 240 / 240 480 / 480
Output Total 200 / 200
Balance 40 / 40 480 / 480
Review of Systems
-
History Source: Patient
All other systems: Reviewed and negative
Physical Exam
-
General: Comfortable
Respiratory: Clear to Auscultation
Cardiac: Regular Rhythm
GI: Soft, Nontender and Nondistended
Musculoskeletal: No Clubbing, No Cyanosis and No Edema
Neuro: Awake, Alert, Oriented and AO x 3
Psych: Calm
--- NOTE | 2024-09-30 12:53 | W.DCSUMMARY ---
Discharge Summary
Discharge Data
Date of Admission: 09/28/24
Date of Discharge: 09/30/24
-
Pending Results: No
Hospital Course
84yo M with PMHX of CAD s/p PCI, most recent stent in May 2024, pulmonary embolism on Warfarin, HTN, DM, mild , BPH, insomnia came after episode of chest pain, typical for his usual stable angina pain, but appeared at rest, managed for posible
NSTEMI. Symptoms did not recur and radio news anchor adjusted medications with recommendations to discharge home. Medically stable for d/c on existent warfarin - one dose upon d/c, then cont usual home dose and repeat INR in 2 days upon d/c - patient
verbalized understanding of the instructions, Echo unchanged sine March 2024 and reviewed with radio news anchor. No new wall motion abnormality or EF drop
I have spent at least 38min reviewing chart, test results, communication with consultants and providing direct patient care
Patient was managed for:
#Chest pain, most likely stable angina
#CAD s/p PCI
#Chronic mild thrombocytopenia
#Chronic anemia
#Chronic leukopenia
#Chronic Alk.phos elevation
#CKD stage 3a-b
#Hx of pulmonary embolism (remote history)
#Essential HTN
#DM type 2 with nephropathy
#Daily ETOH
#MDD
Discharge Plan
-
Patient Disposition: Home (Routine Discharge)
Discharge Diagnosis/Procedures: Stable angina
Diet: Diabetic, Carb Controlled
Activity: As tolerated
Driving Restrictions: As prior to admission
Referrals:
Paul Bravo DO [Active] - in two to four weeks (Pancytopenia, chronic)
Keshav Cardoso MD [Active] - in less than 1 week
Moises Moore MD [Family Provider] -
Prescriptions:
New
folic acid 1 mg Tablet
1 mg PO DAILY Qty: 30 0RF
isosorbide mononitrate 60 mg Tablet Extended Release 24 Hr
60 mg PO DAILY Qty: 30 0RF
ranolazine 500 mg Tablet Extended Release 12 Hr
1,000 mg PO BID Qty: 120 0RF
thiamine mononitrate (vit B1) 100 mg Tablet
100 mg PO DAILY Qty: 30 0RF
Continued
atorvastatin 40 mg Tablet
40 mg PO QPM
cyanocobalamin (vitamin B-12) 1,000 mcg Tablet
1,000 mcg PO QPM
clopidogrel 75 mg Tablet
75 mg PO DAILY
amitriptyline 50 mg Tablet
50 mg PO HS
warfarin [Jantoven] 3 mg Tablet
3 mg PO SuMoWeFrSa@0800
tamsulosin 0.4 mg Capsule
0.4 mg PO QPM
zolpidem 5 mg Tablet
2.5 mg PO HSPRN PRN (Reason: sleep)
coenzyme Q10 [CoQ-10] 100 mg Capsule
100 mg PO QPM
lansoprazole 15 mg Tablet,Disintegrat, Delay Rel
15 mg PO DAILY
cholecalciferol (vitamin D3) [Vitamin D3] 125 mcg (5,000 unit) Tablet
125 mcg PO DAILY
atenolol 25 mg Tablet
12.5 mg PO QPM
warfarin 3 mg Tablet
1.5 mg PO TUTH@0800
Discontinued
isosorbide mononitrate 30 mg Tablet Extended Release 24 Hr
30 mg PO DAILY
valsartan 80 mg Tablet
80 mg PO QPM
ranolazine 500 mg Tablet Extended Release 12 Hr
500 mg PO BID
Discharge Orders:
Discharge Patient (As Directed); Ordered 09/30/24
Ordered By: Dean Mathias
Care Plan Goals
Care Plan Goals:
Problem: Readiness for enhanced knowledge related to diagnosis and treatment plan
Goal: Understand your diagnosis and treatment plan needs, including medications if applicable.
Instructions: Know your diagnosis, underlying causes and treatment plan options, including medications if applicable. Consult with your health care team to learn about your diagnosis and treatment plan, including medications if applicable.
Discharge Date and Time
Print Language: GREENLANDIC
--- NOTE | 2024-09-30 13:35 | CM ---
spoke to pt in room, he is prev idnep, lives in [place] at [facility] in an apt with no steps to enter. he denies any dc planning needs or dme's. presented pt with [facility] subt abuse counseling. he wanted the written information but did not
wanrt to call them. plan is for dc to home when medically stable.
--- NOTE | 2024-09-30 14:31 | PTCARENOTE ---
All D/C info reviewed with pt, all questions answered. Pt D/C'd home.
--- NOTE | 2024-09-30 14:59 | PN.CDI ---
Addendum entered and electronically signed by Dean Mathias MD 10/01/24 13:14:
Documentation appropriate, cannot provide further details
Original Note:
CDI
- -
CDI:
Physician Documentation Request
Admit Date: 09/28/24 20:55
Dear Doctor Mey,
09/29 hospitalist progress notes state 'Non-stemi'
In 09/30 progress note this changed to 'chest pain, most likely stable angina'
Laboratory Tests
09/28/24 09/28/24 09/29/24
18:26 22:16 03:29
Troponin I 0.041 H* 0.036 H* 0.036 H*
09/30/24
02:23
Troponin I 0.025
Could you provide a diagnosis that supports the above lab abnormalities and additional evaluation/ monitoring:
Type II SC demand ischemia
Other
Use of terms such as suspected, likely, concern for, or probable (associated with a specific diagnosis that is being evaluated, monitored, or treated as if it exists) are acceptable and can be coded in the inpatient setting, when documented at the
time of discharge.
Thank you,
Fang Clemente RN, BSN
CDI Specialist
tiger text
Please use your independent medical judgment in providing your response.
== END 2024-09-30 14:32 | disposition home or self-care (01) | DRG 303 ==
LOC: IVU 20:55
PROVIDERS: Hospitalist; ADMITTING PHYSICIAN Internal Medicine; ATTENDING PHYSICIAN Internal Medicine; CONSULT PHYSICIAN Student in an Organized Health Care Education/Training Program; EMERGENCY PHYSICIAN Student in an Organized Health Care Education/Training Program; FAMILY PHYSICIAN Internal Medicine
DX: I25.118 Atherosclerotic heart disease of native coronary artery with other forms of angina pectoris (principal); D61.818 Other pancytopenia; N17.9 Acute kidney failure, unspecified; I12.9 Hypertensive chronic kidney disease with stage 1 through stage 4 chronic kidney disease, or unspecified chronic kidney disease; N18.32 Chronic kidney disease, stage 3b; F10.10 Alcohol abuse, uncomplicated; E11.22 Type 2 diabetes mellitus with diabetic chronic kidney disease; F32.9 Major depressive disorder, single episode, unspecified; F41.9 Anxiety disorder, unspecified; N40.0 Benign prostatic hyperplasia without lower urinary tract symptoms; I25.10 Atherosclerotic heart disease of native coronary artery without angina pectoris; E78.00 Pure hypercholesterolemia, unspecified; K21.9 Gastro-esophageal reflux disease without esophagitis; D69.6 Thrombocytopenia, unspecified; D53.9 Nutritional anemia, unspecified; D72.819 Decreased white blood cell count, unspecified; Z86.711 Personal history of pulmonary embolism; Z95.5 Presence of coronary angioplasty implant and graft; Z79.02 Long term (current) use of antithrombotics/antiplatelets; Z87.891 Personal history of nicotine dependence; Z79.01 Long term (current) use of anticoagulants; Z79.899 Other long term (current) drug therapy; Z82.49 Family history of ischemic heart disease and other diseases of the circulatory system
CPT/HCPCS: 80048; 80053; 80061; 82962; 82977; 83036; 84484; 85025; 85027; 85610; 85730; 93005; 93306; 96365; 99285

== ENCOUNTER 2024-10-22 09:33 | Outpatient (RCR) | payer MEDICARE, SELFPAY | END 2024-10-22 23:59 | disposition home or self-care (01) | LOC: CRHB 09:33 | PROVIDERS: ATTENDING PHYSICIAN Internal Medicine Cardiovascular Disease; FAMILY PHYSICIAN Internal Medicine | DX: I25.10 Atherosclerotic heart disease of native coronary artery without angina pectoris (principal); Z95.5 Presence of coronary angioplasty implant and graft | CPT/HCPCS: G0422; G0423 ==

== ENCOUNTER 2024-11-19 08:10 | Day surgery (SDC) | payer MEDICARE, SELFPAY ==
[2024-11-19] VITALS (22 sets, daily range): BP systolic 125–181; BP diastolic 43–129; BMI 26.6
[2024-11-19] MEDS: NSS 245 ML IV (09:01)
[2024-11-19 09:08] LABS: INR 1.39; PT 17.3 Sec (11.4-14.6)
[2024-11-19 10:24] LABS: ACT-LR - POC 298 Seconds (116-155)
[2024-11-19 10:57] LABS: ACT-LR - POC 326 Seconds (116-155)
--- NOTE | 2024-11-19 12:15 | PTCARENOTE ---
Patient received from the director of labor relations. AO x 3, NAKNEK, b/l hearing aid. EKG completed. NSR with 1st degree HB. Right femoral site scant serosanguineous drainage. Right radial band in place, no bleeding. BP elevated 172/67, groin site mildly tender but
soft. HOB flat, reinforced to not lift head off pillow. Assisted with the urinal. Call grace in reach
[2024-11-19] MEDS: NSS 1000 IV (12:44)
--- NOTE | 2024-11-19 13:15 | PTCARENOTE ---
Patient received from the rn labor and delivery. Right dressing small amount of sanguinous drainage, dressing replaced. Right radial band. NSR with a first degree HB, BP elevated 181/64. Voided in urinal with assistance. Family at bedside
--- NOTE | 2024-11-19 13:35 | CM ---
Reviewed chart, Met with MrGris and Mrs. Preston to review discharge plans. Mr. Preston was sleeping. Mrs. Preston states prior to admission they reside in [facility] in the independent section. She states they have been there
for seven months. She states they use the elevator to get to his apartment. She states prior to admission he was independent with ambulation and adls. She states he does not have any DME in the home. She states he has a prescription plan and uses
[facility]. The discharge plan is to return home with his spouse when medically stable.
--- NOTE | 2024-11-19 14:00 | PTCARENOTE ---
BP elevated, med reconciled and clarified. Right groin site dressing oozing Kristine Quintanilla notified. Pressure applied, femoral site is soft and less tender, dressing changed. Will continue to monitor
[2024-11-19 14:06] LABS: ACT-LR - POC > 397 Seconds (116-155)
[2024-11-19] MEDS: LOPRESSOR 25 MG PO (17:00)
[2024-11-19] MEDS: LIPITOR 40 MG PO (17:00)
[2024-11-19] MEDS: FLOMAX 0.4 MG PO (17:01)
--- NOTE | 2024-11-19 18:20 | PTCARENOTE ---
Right femoral site soft, oozing on dressing, dressing changed. Pressure held and sandbag applied. Denies pain
--- NOTE | 2024-11-19 19:10 | ITS.CL.PN ---
Addendum entered and electronically signed by Nomi Winters MD 11/20/24 13:32:
Addendum to clarify presence of RPDA DIRECTOR OF OCCUPATIONAL THERAPY: Pre-procedure, there was HECTOR 0 flow in the RPDA. Post-PCI to RPDA, the flow improved to HECTOR 3.
Original Note:
Folder Hand - Procedure Note
Procedure
Procedure Note:
CARDIAC CATHETERIZATION REPORT
Date of Procedure: 11/19/2024
Referring: Dr. Willis Zuniga MD
Indication: Class III angina despite maximally tolerated medication
PROCEDURE(S)
1. left heart catheterization
2. coronary angiography
3. IVUS LM
4. PCI with TREY to mid-RCA
5. DIRECTOR OF OCCUPATIONAL THERAPY PCI with TREY to RPDA
6. IVUS RPDA
ACCESS:
1. 6F right radial artery (wire able to be advanced to root but access abandoned due to inability to advance long sheath which would have been needed to allow catheter manipulation; closure: radial band)
2. 6F right common femoral artery (closure: 6F Angioseal)
CATHETERS
1. 6F JR4
2. 6F JL3.5
3. 6F EBU3.75 guide
4. 6F AR1 guide
MODERATE SEDATION: 90 minutes of moderate sedation was utilized. An independent medical record librarians teacher was present to assist with and help manage the patient's level of consciousness and physiologic status.
HEMODYNAMIC DATA
LV 163/10 (EDP 28) mmHg
AO 156/61 (mean 98) mmHg
CORONARY ANGIOGRAPHY
Dominance: Right
LM: Eccentric ~50% stenosis worst in the cranial projections. This has mildly progressed from 2023 angiography and there was mild catheter dampening on engagement. This was further assessed by IVUS.
LAD: large vessel giving rise to two small diagonal branches. There are stents from the ostial to mid-distal LAD with multiple layers proximally. The recently placed stent in the mid-distal LAD is widely patent. There is diffuse up to moderate ISR
throughout but no new disease compared to prior angiogram.
LCx: gives rise to a moderate caliber OM1, small OM2, and several moderate caliber LPL branches. There is a 60% ostial stenosis in OM1 that is stable from prior and otherwise mild CAD.
RCA: large vessel giving rise to a moderate caliber RPDA and multiple small RPL branches. There are multiple layers of stent extending from the ostium distally into the PDA. There is a new focal 70-80% stenosis in the mid-vessel as well as a DIRECTOR OF OCCUPATIONAL THERAPY of
the proximal PDA with faint L-R collaterals from the LAD.
IVUS of LAD
Heparin was administered to achieve ACT>300. The left main was engaged with an EBU3.75 guide catheter and a Runthrough coronary wire placed in the distal LAD. An [place] IVUS catheter was advanced to the mid-LAD and pullback performed to measure
the MLA of the left main. This was repeated several times with both backward and forward advancement of the catheter to ensure that the true MLA was being captured. Offline review demonstrated the MLA to be 6-7 mm2.
PCI with TREY for DIRECTOR OF OCCUPATIONAL THERAPY of distal RCA and PCI with TREY to mid-RCA
The right coronary artery was engaged with a AR1 guide catheter and a Runthrough wire placed in the distal RPDA. The DIRECTOR OF OCCUPATIONAL THERAPY could not be crossed with a Runthrough coronary wire. The Runthrough was left in place as a emerson wire and a Whisper wire with
aggressive spinning was able to desean through the short DIRECTOR OF OCCUPATIONAL THERAPY. Flow was re-established with a 1.5x12 mm semicompliant balloon, followed by further lesion preparation with a 2.0x12 semicompliant balloon. We attempted to deliver a 2.5x12 mm stent to
the PDA but were unsuccessful despite deep intubation of a Guideliner. The stent was getting stuck in the mid-vessel lesion. Thus, the mid-vessel lesion was predilated with the 2.0 mm balloon and then stented with a 3.0x15 mm [place] TREY taken
to 16 fer with full angiographic expansion and excellent result. The Guideliner was now able to be more deeply intubated which facilitated delivery of the 2.0x12 mm [place] TREY to the RPDA which was deployed at 16 fer. Post dilation was then
performed with a 2.5x12 mm NC balloon taken to high pressure. IVUS was performed and the catheter could not pass to the PDA lesion, but was able to demonstrate that the mid-vessel stent was well expanded and well sized. The patient was loaded with
300 mg Plavix and the groin site closed with Angioseal x1. He was admitted for overnight observation and fuild administration.
CONCLUSIONS
1. Severe CAD s/p multiple prior stents as detailed with progression of left main disease and new severe disease of the RCA
2. Severely elevated LV filling pressure and no aortic stenosis
3. IVUS of the LM with MLA 6-7 mm2
4. Successful PCI with TREY (3.0x15 mm [place]) to the mid-RCA
5. Successful DIRECTOR OF OCCUPATIONAL THERAPY PCI with TREY (2.5x12 [place]) to the RPDA
RECOMMENDATIONS
1. Admit overnight for gentle fluid resuscitation 75 cc/hr x 8 hours
2. Monitor renal function in AM and labs at end of week
3. Continue to optimize secondary prevention and anti-anginal medications
4. If patient demonstrates progressive athro/ISR, drug coated balloons should be considered in the future
5. Cardiac rehab
Copy to: Dr. Willis Zuniga MD (insole filler); Dr. Moises Moore MD (PCP)
Signed: Nomi Winters MD, PhD
[2024-11-19] MEDS: COUMADIN 3 MG PO (20:27)
[2024-11-19] MEDS: IMDUR (EXTENDED RELEASE) 30 MG PO (20:28)
[2024-11-19] MEDS: RANEXA EXTENDED RELEASE 1000 MG PO (20:31)
[2024-11-19] MEDS: ELAVIL 50 MG PO (22:32)
[2024-11-19] MEDS: DIOVAN 80 MG PO (22:32)
[2024-11-20 01:00] VITALS: BP 121/40
[2024-11-20 02:01] VITALS: BP 108/44
[2024-11-20 03:55] VITALS: BP 121/65
[2024-11-20 04:46] LABS: Hematocrit 29.6 % (39.0-52.0); Hemoglobin 10.3 g/dL (13.0-18.0); Mean Corp Hgb Conc. 34.8 g/dL (33.0-37.0); Mean Corpuscular Hgb 33.2 pg (27.0-31.0); Mean Corpuscular Volume 95.5 fL (80.0-94.0); Mean Platelet Volume 9.8 fL (7.4-10.4); Platelet Count 107 10^3/uL (130-400); Red Cell Dist. Width 13.5 % (11.5-14.5); White Blood Cell Count 4.3 10^3/uL (4.8-10.8)
[2024-11-20 05:01] LABS: INR 1.25
[2024-11-20 05:17] LABS: Blood Urea Nitrogen 29 mg/dl (9-20); Calcium 9.4 mg/dl (8.4-10.2); Carbon Dioxide 23 mmol/L (22-30); Chloride 106 mmol/L (98-107); Estimated Creatinine Clearance 38 ml/min; Glucose 159 mg/dl (70-99); HDL Cholesterol 40 mg/dl; LDL Cholesterol, Calculated 45 mg/dl; Potassium 5.1 mmol/L (3.5-5.1); Sodium 139 mmol/L (135-145); Total Cholesterol 126 mg/dl (50-199); Triglyceride 208 mg/dl (10-149); Very Low Density Lipoprotein 41 mg/dl (0-30); eGFR 48.95
--- NOTE | 2024-11-20 07:52 | W.PN.CARDCBS ---
Addendum entered and electronically signed by Adama Daniels DO 11/20/24 10:10:
Attestation: I have seen and examined the patient. I can confirm Ms. Yi's findings and I agree with her assessment and plan as documented.
84-year-old gentleman admitted for overnight observation after cardiac catheterization for recurrent angina demonstrated VERIFIER of the mid RPDA and a new lesion in the mid RCA. It also demonstrated progression of his left main coronary artery disease.
IVUS of the left main showed a minimal luminal area between 6-7 mm�.
He underwent PCI of the PDA VERIFIER and mid RCA via right common femoral approach.
He generally feels well, though does acknowledge some occasional orthostasis when rising from a seated position. This is reportedly an ongoing issue.
Of note, his medications were not dosed according to his home regimen which may be responsible. He may resume his home medication regimen at its previous schedule.
He will be maintained on dual antiplatelet therapy for at least 12 months, possibly lifelong given the burden of his stent.
Maintain aggressive secondary preventive therapy.
Stable for outpatient follow-up with Dr. Zuniga.
Addendum entered and electronically signed by LEORA Bailey 11/20/24 10:02:
ADD: RFA groin site without ht/bleeding, non tender.
Original Note:
Today's Communication / Plan
-
Daily lovenox bridge until INR 2-3
daily INR at home until therapeutic
triple therapy for 1 week, then plavix/warfarin only
followup w/Dr. Zuniga
home today
Impression / Plan
-
PCP: Moises Moore MD
CDY: Willis Zuniga MD
84 y/o, complex cardiac history including multiple stents to LAD, LCx, OM1, and RCA, most recently with mid LAD PCI 05/2024. He's had recurrent angina and had been in ER in September, treated with medical management including ranolazine, isosorbide.
Intol of increased metoprolol d/t bradycardia. Now presents with recurrent chest pain despite max ray medical therapy.
[facility] 11/19- new focal 70-80% mid RCA instent restenosis as well as prox PDA VERIFIER w/faint L-R collaterals
s/p mid RCA PCI/TREY
s/p RPDA VERIFIER PCI w/TREY
IMPRESSION/PLAN:
Complex CAD
s/p RCA PCI, RPDA VERIFIER PCI
radial cath site stable
tele NSR w/1st deg AVB 80s, occasional PVC, no vt/arrhythmia
will be on triple therapy w/asa, plavix, warfarin for 1 week, then stop asa and remain on plavix/warfarin only
continue metoprolol tartrate, ranolazine, isosorbide
If patient demonstrates progressive athro/ISR, drug coated balloons should be considered in the future
cardiac rehab consult
followup with Dr. Zuniga 2-4 weeks as scheduled
home today
CKD3b- creat 1.4, at baseline, stable post dye load
Pulm Embolism- warfarin resumed last evening- given 3mg
INR 1.25 today
Will start lovenox bridge until INR therapeutic- 1.5mg/kg daily (120mg/day)
PCP manages his warfarin and pt does finger sticks at home, will do them daily until INR >2.0, then stop lovenox
HTN- modestly hypertensive post procedure, now controlled
continue valsartan
HLD- lipid profile noted, continue atorvastatin
DM- most recent A1C 6.95- not currently taking meds
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
Subjective
Date of Service: November 20, 2024
Denies cp/palps/dyspnea
oob ambulating
cath site without pain- moderate bleeding post cath managed with manual compression, now stable
Objective
Labs:
11/20/24 04:16
11/20/24 04:16
Labs
Hgb 10.3 g/dL (13.0-18.0) L 11/20/24 04:16
Hct 29.6 % (39.0-52.0) L 11/20/24 04:16
Plt Count 107 10^3/uL (130-400) L 11/20/24 04:16
PT 16.0 Sec (11.4-14.6) H 11/20/24 04:16
INR 1.25 11/20/24 04:16
Sodium 139 mmol/L (135-145) 11/20/24 04:16
Potassium 5.1 mmol/L (3.5-5.1) 11/20/24 04:16
BUN 29 mg/dl (9-20) H 11/20/24 04:16
Creatinine 1.4 mg/dL (0.7-1.3) H 11/20/24 04:16
Glucose 159 mg/dl (70-99) H 11/20/24 04:16
Vital Signs and I&O:
Vital Signs
Temp Pulse Resp BP Pulse Ox
97.9 F 64 20 121/65 95
11/20/24 04:48 11/20/24 04:45 11/20/24 04:48 11/20/24 03:55 11/20/24 04:48
Vital Signs
Temp Pulse Resp BP Pulse Ox
97.9 F 64 20 121/65 95
11/20/24 04:48 11/20/24 04:45 11/20/24 04:48 11/20/24 03:55 11/20/24 04:48
Intake & Output
11/18/24 11/19/24 11/20/24 11/21/24
06:59 06:59 06:59 06:59
Output Total 1750 / 175
Balance -1750 / -1750
Physical Exam
Physical Exam
AAOx3, MAEE 5/5
RRR S1 S2 no murmurs
CTA bilat, non labored
soft abd, + bs
right radial cath site without ht/bleeding, non tender
bilat extremities w/palpable distal pulses, no edema
[2024-11-20 08:28] VITALS: BP 96/77
[2024-11-20] MEDS: RANEXA EXTENDED RELEASE 1000 MG PO (09:13)
[2024-11-20] MEDS: LOW STRENGTH ASPIRIN 81 MG PO (09:14)
[2024-11-20] MEDS: IMDUR (EXTENDED RELEASE) 30 MG PO (09:15)
[2024-11-20] MEDS: PLAVIX 75 MG PO (09:17)
[2024-11-20] MEDS: PREVACID 15 MG PO (09:18)
[2024-11-20] MEDS: LOVENOX 120 MG SC (09:34)
--- NOTE | 2024-11-20 09:40 | CM ---
Reviewed chart. Met with Mr. Arboleda to review discharge plans. He states he is feeling well and maybe able to go home soon. Prior to admission he resides with his spouse in an apartment at [facility]. Prior to admission he
was independent with ambulation and adls. He does not have any DME in the home. He has a prescription plan and uses [facility]. The discharge plan is to return home with his spouse when medically stable.
--- NOTE | 2024-11-20 09:50 | W.DS.TRANS ---
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
-
Discharge Instructions:
Discharge Diagnosis/Procedures Angioplasty with stent x2 to Right Coronary
artery
Diet Low Cholesterol,Diabetic, Carb Controlled
Driving Restrictions No driving for 24 hours
Other Services Cardiac Rehab
Instructions:
Stand-Alone Forms: DC Instructions- Cath/EP Lab
Changes to Home Medications: Yes
Discharge Medications:
DC Medications w/original date entered in [facility]
amitriptyline 50 mg tablet 50 mg PO HS depression/sleep 06/06/24
atorvastatin 40 mg tablet 40 mg PO QPM High Cholesterol 06/06/24
cholecalciferol (vitamin D3) 125 mcg (5,000 unit) tablet (Vitamin D3) 125 mcg PO DAILY Supplement 06/06/24
clopidogrel 75 mg tablet 75 mg PO DAILY Blood Clot Prevention/Tx 06/06/24
coenzyme Q10 100 mg capsule (CoQ-10) 100 mg PO QPM Supplement 06/06/24
cyanocobalamin (vitamin B-12) 1,000 mcg tablet 1,000 mcg PO QPM Supplement 06/06/24
lansoprazole 15 mg delayed release,disintegrating tablet 15 mg PO DAILY Gastrointestinal Issue 06/06/24
tamsulosin 0.4 mg capsule 0.4 mg PO QPM Urinary Issue 06/06/24
warfarin 3 mg tablet (Jantoven) 3 mg PO SUMOWEFRSA Blood Clot Prevention/Tx 06/06/24
zolpidem 5 mg tablet 2.5 mg PO HSPRN PRN sleep 06/06/24
warfarin 3 mg tablet 1.5 mg PO TUTH Blood Clot Prevention/Tx 09/28/24
ranolazine 500 mg tablet,extended release,12 hr 1,000 mg (2 x 500 mg) PO BID #120 tabs 09/30/24
metoprolol tartrate 25 mg tablet 25 mg PO QPM 11/19/24
aspirin 81 mg chewable tablet 81 mg PO DAILY #1 tab 11/20/24
enoxaparin 120 mg/0.8 mL subcutaneous syringe (Lovenox) 120 mg (0.8 mL) SC DAILY #4 mL 11/20/24
isosorbide mononitrate 60 mg tablet,extended release 24 hr 30 mg PO BID 11/20/24
valsartan 80 mg tablet 80 mg PO QPM 11/20/24
Home Medication Changes
NEW: aspirin for 7 days only, enoxaparin until inr >2.0
Pending Results: No
[2024-11-20 10:37] VITALS: BP 117/54
[2024-11-20] MEDS: COUMADIN 5 MG PO (11:17)
--- NOTE | 2024-11-20 11:34 | W.PN.UPDATE ---
Update Note
Progress Note Update
Discussion with Dr. Winters re: lovenox, triple therapy. There is concern with groin that had oozed post procedure, and potential for more bleeding while on triples/lovenox, and history of falls in this 83 y/o patient. The groin site today is
without ht/bleeding, non tender. He had already received 120mg lovenox this morning. Of note, the warfarin is for recurrent chronic PE.
Will stop lovenox and give 5mg warfarin now. Patient will take 3mg warfarin tomorrow and then follow his dosing schedule as ordered. Patient will check INR daily at home until INR is >2.0.
--- NOTE | 2024-11-20 11:49 | PTCARENOTE ---
Pt received this am with no c/o of any chest pain or sob. Right rad cath site WNL, dressing dry and intact. Right groin dressing dry and intact, site soft and non tender. Pt oob independently, gait steady. Room air sat 98%. Pt discharged to home
with his son in law. Discharge instructions given and reviewed with good understanding and all questions answered.
== END 2024-11-20 12:51 | disposition home or self-care (01) ==
LOC: CATH 08:10
PROVIDERS: Nurse Practitioner Adult Health; ATTENDING PHYSICIAN Student in an Organized Health Care Education/Training Program; FAMILY PHYSICIAN Internal Medicine; OTHER PHYSICIAN Internal Medicine Cardiovascular Disease
DX: I25.110 Atherosclerotic heart disease of native coronary artery with unstable angina pectoris (principal); I25.82 Chronic total occlusion of coronary artery; I12.9 Hypertensive chronic kidney disease with stage 1 through stage 4 chronic kidney disease, or unspecified chronic kidney disease; Z79.899 Other long term (current) drug therapy; E11.22 Type 2 diabetes mellitus with diabetic chronic kidney disease; N18.32 Chronic kidney disease, stage 3b; Z79.01 Long term (current) use of anticoagulants; Z79.82 Long term (current) use of aspirin; E78.5 Hyperlipidemia, unspecified; Z86.711 Personal history of pulmonary embolism; Z79.02 Long term (current) use of antithrombotics/antiplatelets; Z95.5 Presence of coronary angioplasty implant and graft; I49.3 Ventricular premature depolarization; I44.0 Atrioventricular block, first degree
CPT/HCPCS: 99152; 99153; 92978; 92979; 80048; 80061; 85027; 85347; 85610; 93005; 93458; C1725; C1753; C1760; C1769; C1874; C1894; C9601; C9607; Q9967

== ENCOUNTER 2025-06-02 07:05 | Inpatient (IN) | payer MEDICARE, SELFPAY ==
[2025-05-19 09:29] VITALS: BMI 26.2
[2025-05-19 10:03] LABS: APTT 34.2 Sec (23.4-35.0); INR 2.70; PT 28.7 Sec (11.4-14.6)
[2025-05-19 10:12] LABS: Hematocrit 33.1 % (39.0-52.0); Hemoglobin 10.9 g/dL (13.0-18.0); Mean Corp Hgb Conc. 32.9 g/dL (33.0-37.0); Mean Corpuscular Volume 92.5 fL (80.0-94.0); Nucleated Red Blood Cells % 0 % (-); Platelet Count 112 10^3/uL (130-400); Red Cell Dist. Width 14.2 % (11.5-14.5)
[2025-05-19 10:20] LABS: Blood Urea Nitrogen 25 mg/dl (9-20); Calcium 9.8 mg/dl (8.4-10.2); Carbon Dioxide 25 mmol/L (22-30); Chloride 106 mmol/L (98-107); Estimated Creatinine Clearance 31 ml/min; Glucose 181 mg/dl (70-99); Potassium 4.5 mmol/L (3.5-5.1); Sodium 138 mmol/L (135-145); eGFR 38.53
--- NOTE | 2025-05-27 11:32 | PTCARENOTE ---
Patients 05/19 INR- 2.70- Deandra @ Dr. Valentin office notified
--- NOTE | 2025-05-30 15:41 | HP.FOC2 ---
Documented by User: LEORA Thompson 05/30/25 15:48
Focused History & Physical
Chief Complaint
HPI:
Chief Complaint: Falls + carotid stenosis
HPI / Indication for Planned Procedure: 85 yo male with PMH significant for CAD with 18 cardiac stents, HTN, high cholesterol, skin CA here today for planned Right CEA with Dr Felder.
Relevant Past Medical History: Other (see above)
Relevant Social History: Tobacco Use (former)
Relevant Family History: Negative
Relevant Past Surgical History: Positive for (carpal tunnel release, shoulder sugery, cardiac stenting)
Medication
See Medication form for detailed medications: Yes
Medication List (including Herbals & OTC):
amitriptyline 50 mg tablet 50 mg PO QPM depression/sleep 06/06/24
atorvastatin 40 mg tablet 40 mg PO QPM High Cholesterol 06/06/24
cholecalciferol (vitamin D3) 125 mcg (5,000 unit) tablet (Vitamin D3) 125 mcg PO DAILY Supplement 06/06/24
clopidogrel 75 mg tablet 75 mg PO DAILY Blood Clot Prevention/Tx 06/06/24
coenzyme Q10 100 mg capsule (CoQ-10) 100 mg PO QPM Supplement 06/06/24
cyanocobalamin (vitamin B-12) 1,000 mcg tablet 1,000 mcg PO QPM Supplement 06/06/24
lansoprazole 15 mg delayed release,disintegrating tablet 15 mg PO DAILY Gastrointestinal Issue 06/06/24
tamsulosin 0.4 mg capsule 0.4 mg PO QPM Urinary Issue 06/06/24
warfarin 3 mg tablet (Jantoven) 3 mg PO DAILY Blood Clot Prevention/Tx 06/06/24
zolpidem 5 mg tablet 2.5 mg PO HSPRN PRN sleep 06/06/24
metoprolol tartrate 25 mg tablet 25 mg PO QPM 11/19/24
valsartan 80 mg tablet 80 mg PO QPM 11/20/24
ranolazine 500 mg tablet,extended release,12 hr 500 mg PO BID 05/15/25
Medications Reviewed: Yes
Allergies and Reactions
Patient has Allergies: Yes
Noted Allergies and Reactions:
Allergy/AdvReac Type Severity Reaction Status Date / Time
amoxicillin trihydrate (From Allergy bad Verified 05/15/25 15:39
Augmentin) headache
niacin Allergy rash, Verified 05/15/25 15:39
itching
potassium clavulanate (From Allergy bad Verified 05/15/25 15:39
Augmentin) headache
quinidine Allergy joint Verified 05/15/25 15:39
pain,
cramping
Diagnosis / Assessment
PAD
Plan / Procedure
Planned Right CEA with Dr Felder
Anesthesia/Sedation to be done by Anesthesia Provider: Yes

Documented by User: LEORA Chowdary 06/02/25 07:44
Focused History & Physical
Chief Complaint
HPI:
Chief Complaint: Falls + carotid stenosis
HPI / Indication for Planned Procedure: 85 yo male with PMH significant for CAD with 18 cardiac stents, HTN, high cholesterol, skin CA here today for planned Right carotid endarterectomy with Dr Felder. Patient denies recent hospitalization,
trauma, or illness. He denies chest pain, shortness of breath, dyspnea exertion, nausea, vomiting, fever, cough, chills, abdominal pain, or loose stools. He endorses he is at his baseline health today.
Review of Systems
Review of Pertinent Systems: All Systems Negative
Pertinent Physical Exam
All Other Systems: Negative
Head/Neck: Normal
Lungs: Normal (Bilateral lungs clear to auscultation)
Heart: Normal (RRR, S1 and S2, no audible murmur)
Abdomen: Normal (Nontender nondistended)
Extremities: Normal (Bilateral radial pulse +2 palpable)
Neurological: Normal
Diagnosis / Assessment
Assessment: 85-year-old male with peripheral arterial disease and right carotid disease
Plan / Procedure
Will proceed with planned Right CEA with Dr Porfirio Felder III
[2025-06-02] VITALS (19 sets, daily range): BP systolic 104–201; BP diastolic 47–100; BMI 26.6
[2025-06-02] MEDS: PERIDEX 0.12% ORAL RINSE 15 ML PO (07:53)
[2025-06-02] MEDS: BACTROBAN NASAL 1 GRAM NASAL (07:53)
[2025-06-02] MEDS: VANCOCIN 530 MG IV (07:58)
--- NOTE | 2025-06-02 08:05 | W.SUR.PREOP ---
Pre-Operative Surgical Note
-
I have examined this patient prior to the performance of the scheduled procedure.
The patient's condition is unchanged from the time of the current History and
Physical and the patient is able to undergo the scheduled procedure.
[2025-06-02] MEDS: PLAVIX 75 MG PO (08:27)
[2025-06-02 09:55] LABS: ACT-LR - POC 314 Seconds (116-155)
[2025-06-02 10:32] LABS: ACT-LR - POC 287 Seconds (116-155)
[2025-06-02] MEDS: DILAUDID 0.25 MG IV (12:04)
--- NOTE | 2025-06-02 12:10 | OR.RPT ---
Operative Report
Operative Report
Date of Operation: 06/02/2025
Pre Op Diagnosis: Right carotid artery stenosis, asymptomatic
Post Op Diagnosis: Right carotid artery stenosis, asymptomatic
Procedure: Right carotid endarterectomy with patch angioplasty using bovine pericardium
Surgeon: Porfirio Felder III, MD
Program Eligibility Specialist: Caridad Pak MD PGY2
Anesthesia: General
Complications: None
History and Indications for Procedure: 85-year-old male with high-grade right carotid artery stenosis.
Procedure in Detail: Adama Arboleda was correctly identified and placed supine on the operating table. After adequate induction of anesthesia the right neck was positioned, prepped and draped in the usual sterile fashion. Preoperative antibiotics
were administered. A timeout procedure was performed with the nursing and anesthesia staff confirming the patients identity as well as the nature and laterality of the procedure.
The carotid bifurcation was marked with ultrasound at the beginning of the case. The incision was planned accordingly. An incision was made along the anterior border of the right sternocleidomastoid muscle. Electrocautery was used to divide the
subcutaneous tissue and platysma. The carotid sheath was entered with sharp dissection. The internal jugular vein was retracted laterally. The vagus nerve was identified and protected throughout the case. The common carotid artery was identified at
the base of this incision and carefully encircled with a vessel loop. The patient was systemically heparinized. The dissection was continued distally towards the carotid bifurcation. The facial vein was skeletonized, ligated and divided between ties
and clips. The proximal external carotid artery was encircled with a vessel loop. The distal internal carotid artery was encircled with a vessel loop at a soft spot on the artery beyond the plaque. The hypoglossal nerve was identified and protected.
The internal vessel loop was secured followed by the common and external. An arteriotomy was made on the distal common carotid artery with an 11-blade. This was extended proximally and distally with Mcdermott scissors. The arteriotomy was extended
distally through the plaque to an area of normal appearing internal carotid artery. The distal vessel loop was replaced with a short tip hockey-stick type vascular clamp. An endarterectomy was performed with a [place] elevator in the standard
fashion. The proximal extent of the plaque was transected with scissors. The distal end of the plaque in the internal carotid artery was feathered. No distal intimal flap was identified. The plaque extending into the external carotid artery was
everted. Once the plaque was fully removed the endarterectomy plane was irrigated with heparinized saline and any loose fronds of tissue were removed. A pre-cut piece of bovine pericardium was sewn in place using a running 6-0 Prolene suture. Prior
to the completion of the patch the common carotid was allowed to forward bleed and the external was allowed to back bleed. The area under the patch was irrigated with heparinized saline to remove any potential thrombus or debris. The anastomosis was
completed.
The external vessel loop was released first, followed by the common and then the internal. There was an excellent pulse in the distal internal carotid artery. An excellent quality Doppler signal in the distal internal carotid artery was also
confirmed. The patch suture line was closely inspected for hemostasis and was achieved. Protamine was administered. Hemostasis was achieved in the wound bed. The wound was irrigated with saline solution.
The wound was then closed in layers. Sterile skin glue was applied. The patient awoke from anesthesia with no immediate neuro deficits and was taken to the PACU in stable condition.
Attestation: I was present and responsible for the entire procedure
Signed:
Porfirio Felder III, MD
Vascular Surgery
[facility]
--- NOTE | 2025-06-02 12:24 | CON.INTV ---
Consultation
Consultation Request
Date/Time Consultation Requested: 06/02/2025-12:30 PM
Date/Time Consultation Performed: 06/02/2020 5-12 45 PM
Requesting Provider: Vascular surgery
Performing Provider: Dr. Ramirez
Reason for Consultation: Postoperative critical care management
Medical History
-
Chief Complaint: Carotid stenosis
History of Present Illness:
85-year-old non-smoking male with a history of CAD/stent, hypertension, hyperlipidemia, skin cancer, carpal tunnel, bilateral shoulder surgery, trigger finger surgery who had significant right carotid stenosis and underwent carotid
endarterectomy-size mixer consulted for postoperative critical care management 06/02/2025. Patient complained of headache which is actually improving. He has no focal weakness, dysarthria and denies any shortness of breath, chest congestion, chest
pain, productive cough, abdominal pain, nausea or lower extremity swelling.
Past Medical History
Past Medical History: None (Hypertension. Hyperlipidemia. CAD/stent. Skin cancer. Bulging disc removal. Carpal tunnel. Bilateral shoulder surgery. Trigger surgery.)
Social History
Tobacco: Non-smoker
Alcohol: Occasional
Drug: None
Living: With Family
Occupational Exposures: No known asbestos exposure
Environmental Exposures: No known tuberculosis exposure
Family History
Family History: Reviewed & Not Pertinent (CAD and diabetes)
Allergies / Home Medications
Allergies
Allergy/AdvReac Type Severity Reaction Status Date / Time
niacin Allergy Severe rash, Verified 06/02/25 07:27
itching
amoxicillin trihydrate (From Allergy Intermediate bad Verified 06/02/25 07:27
Augmentin) headache
potassium clavulanate (From Allergy Intermediate bad Verified 06/02/25 07:28
Augmentin) headache
quinidine Allergy Intermediate joint Verified 06/02/25 07:28
pain,
cramping
Home Medications
�Medication �Instructions �Recorded �Confirmed �Last Taken �Type
amitriptyline 50 mg tablet 50 mg PO QPM depression/sleep 06/06/24 06/02/25 11/18/24 20:00 History
atorvastatin 40 mg tablet 40 mg PO QPM High Cholesterol 06/06/24 06/02/25 06/01/25 18:00 History
cholecalciferol (vitamin D3) 125 125 mcg PO DAILY Supplement 06/06/24 06/02/25 05/27/25 18:00 History
mcg (5,000 unit) tablet (Vitamin
D3)
clopidogrel 75 mg tablet 75 mg PO DAILY Blood Clot 06/06/24 06/02/25 06/01/25 09:00 History
Prevention/Tx
coenzyme Q10 100 mg capsule 100 mg PO QPM Supplement 06/06/24 06/02/25 05/27/25 18:00 History
(CoQ-10)
cyanocobalamin (vitamin B-12) 1,000 mcg PO QPM Supplement 06/06/24 06/02/25 05/27/25 18:00 History
1,000 mcg tablet
lansoprazole 15 mg delayed 15 mg PO DAILY Gastrointestinal 06/06/24 06/02/25 06/02/25 06:00 History
release,disintegrating tablet Issue
tamsulosin 0.4 mg capsule 0.4 mg PO QPM Urinary Issue 06/06/24 06/02/25 06/01/25 09:00 History
warfarin 3 mg tablet (Jantoven) 3 mg PO DAILY Blood Clot 06/06/24 06/02/25 05/27/25 09:00 History
Prevention/Tx
zolpidem 5 mg tablet 2.5 mg PO HSPRN PRN sleep 06/06/24 06/02/25 11/18/24 20:00 History
metoprolol tartrate 25 mg tablet 12.5 mg PO QPM 11/19/24 06/02/25 06/01/25 09:00 History
valsartan 80 mg tablet 80 mg PO QPM 11/20/24 05/15/25 06/01/25 09:00 History
ranolazine 500 mg tablet,extended 500 mg PO BID 05/15/25 06/02/25 06/01/25 18:00 History
release,12 hr
Review of Systems
-
Unable to Obtain full review of systems at this time due to: Other ( per HPI)
Vitals / Labs / Diagnostic Testing
Vital Signs
Temp Pulse Resp BP Pulse Ox
97.6 F 68 12 123/51 99
06/02/25 11:25 06/02/25 12:00 06/02/25 12:00 06/02/25 12:00 06/02/25 12:00
Lab Data
05/19/25 09:26
05/19/25 09:26
Diagnostic Testing:
Physical Exam
-
Exam:
Well-nourished and well-developed in no apparent distress
HEENT-atraumatic, normocephalic
Neck-supple, no JVD, no bruit
Heart-regular rate and rhythm-no murmurs, rubs or gallops
Chest-clear to auscultation, no wheezes, crackles
Back-no tenderness
Abdomen-soft, nontender, nondistended, no hepatosplenomegaly
Extremities-no cyanosis, clubbing, edema and good peripheral pulses
Integument-intact, no rashes, lesions or ecchymosis
Neurology-alert and oriented, nonfocal motor and sensory exam
Assessment
-
85-year-old non-smoking male with a history of CAD/stent, hypertension, hyperlipidemia, skin cancer, carpal tunnel, bilateral shoulder surgery, trigger finger surgery who had significant right carotid stenosis and underwent carotid
endarterectomy-size mixer consulted for postoperative critical care management 06/02/2025.
Right carotid artery stenosis
Status post right carotid endarterectomy with patch angioplasty using bovine pericardium-06/02/2025-Dr. Felder
Mild leukopenia-WBC 4.3
Mild normocytic anemia-hemoglobin 10.9
Mild thrombocytopenia-platelet 112
Chronic renal insufficiency-serum creatinine 1.7
Hyperglycemia-blood sugar 181
Conditions present prior to admission:
Hypertension.
Hyperlipidemia.
CAD/stent-multiple
Skin cancer.
Bulging disc removal. Carpal tunnel. Bilateral shoulder surgery. Trigger surgery.
Plan
Postoperative surgical intensive care unit monitoring
Supplemental oxygen as needed
Incentive spirometry
Aspiration precautions
Neuro and vascular checks per protocol
Monitor blood pressure/perfusion pressures and pulses closely
Vascular surgery following-correspondence and operative notes reviewed
Monitor pancytopenia
Monitor renal function
Nephrology evaluation if serum creatinine worsens
Monitor blood sugar
Insulin supplementation as needed
DVT prophylaxis
Early nutrition
Early mobilization
Updated and daughter at the bedside and reviewed with critical care nursing
Critical care statement: A total of 55 minutes of critical care time was provided for this patient today. This includes management of unstable vital signs, evaluation of the patient at bedside, reviewing the patient's pertinent medical records
including radiographs, microbiology, laboratory evaluations, and discussion with primary team, consultants, pharmacy, nutrition, physical therapy, case management, charge nurse, critical care nursing, and respiratory therapy.
Diagnostic data:
Chest x-ray 05/19/2025-NAD
Echocardiogram 09/30/2024-EF 55-60%, mild aortic stenosis-GALE 1.2 cm
Cardiac catheterization 11/19/2024-severe CAD with multiple prior stents with progression of left main disease and now new severe disease in the RCA and severely elevated LV filling pressures and no significant aortic stenosis, successful PCI to mid
RCA, successful PCI to RPDA
Data Reviewed
-
EKG: Report reviewed by me
Radiology: Report reviewed by me
Medical Tests (Nuc Med, Echo etc): Report reviewed by me
Labs: Labs reviewed by me
Old Records: Reviewed
Critical Care Time (in minutes): 55
[2025-06-02 12:37] LABS: Glucose - Point of Care 209 mg/dl (70-99)
[2025-06-02] MEDS: NSS 1000 IV ×2 (12:39→22:19)
[2025-06-02] MEDS: NSS 500 IV (12:39)
[2025-06-02] MEDS: TYLENOL 650 MG PO (12:42)
[2025-06-02] MEDS: DILAUDID 0.5 MG IV (12:43)
--- NOTE | 2025-06-02 13:36 | PTCARENOTE ---
Received pt from PACU. Neuro assessment WNL. Pt c/o pain 9/10 headache and neck pain. Dilaudid and tylenol given. Family at bedside. VSS.
[2025-06-02] MEDS: CARDENE 200 IV (15:18)
--- NOTE | 2025-06-02 15:23 | PTCARENOTE ---
SBP elevated above parameters. Cardene gtt started.
[2025-06-02] MEDS: LOPRESSOR 12.5 MG PO (17:08)
[2025-06-02] MEDS: LIPITOR 40 MG PO (17:09)
[2025-06-02] MEDS: ELAVIL 50 MG PO (17:09)
[2025-06-02] MEDS: FLOMAX 0.4 MG PO (17:09)
[2025-06-02] MEDS: DIOVAN 80 MG PO (17:09)
[2025-06-02] MEDS: VITAMIN B-12 1000 MCG PO (17:10)
[2025-06-02] MEDS: HEPARIN 5000 UNITS SC (19:48)
[2025-06-02] MEDS: RANEXA EXTENDED RELEASE 500 MG PO (19:49)
--- NOTE | 2025-06-02 20:00 | PTCARENOTE ---
Assumed care at 1900. S/P right CEA. Cardene gtt weaned off. See worklist for nursing assessment/neuro assessment details. Denies pain. Right surgical site with surgical adhesive intact with minimal swelling.
[2025-06-02 21:23] LABS: Glucose - Point of Care 353 mg/dl (70-99)
[2025-06-02 21:37] LABS: AST (SGOT) 21 U/L (17-59); Albumin 3.7 g/dl (3.5-5.0); Alkaline Phosphatase 163 U/L (38-126); Blood Urea Nitrogen 22 mg/dl (9-20); Calcium 8.6 mg/dl (8.4-10.2); Carbon Dioxide 17 mmol/L (22-30); Chloride 103 mmol/L (98-107); Estimated Creatinine Clearance 35 ml/min; Glucose 307 mg/dl (70-99); Magnesium 1.6 mg/dl (1.6-2.3); Potassium 4.8 mmol/L (3.5-5.1); Sodium 132 mmol/L (135-145); Total Protein 6.1 g/dl (6.3-8.2); eGFR 44.78
[2025-06-02] MEDS: NOVOLOG FLEXPEN 6 UNITS SC (21:53)
[2025-06-02 22:01] LABS: ALT (SGPT) 21 U/L (0-50)
[2025-06-03] VITALS (9 sets, daily range): BP systolic 100–163; BP diastolic 34–113; BMI 26.3
--- NOTE | 2025-06-03 | PTCARENOTE ---
No change from previous assessment. Patient complaining of full bladder and was only able to urinate small amounts at a time. Bladder scanned for 707 PVR. Patient was then able to urinate 250 and then was straight cathed for 450 clear yellow urine.
[2025-06-03 02:05] LABS: Glucose - Point of Care 158 mg/dl (70-99)
[2025-06-03] MEDS: TYLENOL 650 MG PO (04:22)
[2025-06-03 04:46] LABS: Hematocrit 28.2 % (39.0-52.0); Hemoglobin 9.6 g/dL (13.0-18.0); Mean Corp Hgb Conc. 34.0 g/dL (33.0-37.0); Mean Corpuscular Volume 94.3 fL (80.0-94.0); Platelet Count 109 10^3/uL (130-400); Red Cell Dist. Width 14.0 % (11.5-14.5)
[2025-06-03 04:56] LABS: INR 1.27; PT 16.2 Sec (11.4-14.6)
[2025-06-03 04:57] LABS: APTT 26.4 Sec (23.4-35.0)
[2025-06-03 05:09] LABS: Blood Urea Nitrogen 23 mg/dl (9-20); Calcium 8.6 mg/dl (8.4-10.2); Carbon Dioxide 20 mmol/L (22-30); Chloride 107 mmol/L (98-107); Estimated Creatinine Clearance 41 ml/min; Glucose 156 mg/dl (70-99); Potassium 4.9 mmol/L (3.5-5.1); Sodium 135 mmol/L (135-145); eGFR 53.17
--- NOTE | 2025-06-03 05:39 | PTCARENOTE ---
No change from previous assessment. Patient with trouble emptying bladder completely. Most recent void of 380 with PVR 189. Tylenol given for mild headache with relief. Right CEA incision remains unchanged. See worklist for neuro checks throughout
the shift.
[2025-06-03] MEDS: RANEXA EXTENDED RELEASE 500 MG PO (07:12)
[2025-06-03] MEDS: PREVACID 15 MG PO (07:13)
[2025-06-03] MEDS: PLAVIX 75 MG PO (07:13)
[2025-06-03] MEDS: DIOVAN 80 MG PO (07:13)
[2025-06-03] MEDS: HEPARIN 5000 UNITS SC (07:13)
[2025-06-03] MEDS: VITAMIN D3 (cholecalciferol) 125 MCG PO (07:15)
[2025-06-03] MEDS: NOVOLOG FLEXPEN-LOW RESISTANCE 1 UNITS SC (07:22)
--- NOTE | 2025-06-03 07:25 | W.PN.INTV ---
Today's Communication / Plan
Recommendations
Neurovascularly intact
Increase activity
deli
Likely transferred out of ICU-call pulmonary if respiratory issues arisene
Assessment
-
85-year-old non-smoking male with a history of CAD/stent, hypertension, hyperlipidemia, skin cancer, carpal tunnel, bilateral shoulder surgery, trigger finger surgery who had significant right carotid stenosis and underwent carotid
endarterectomy-caterer's aide consulted for postoperative critical care management 06/02/2025.
Right carotid artery stenosis
Status post right carotid endarterectomy with patch angioplasty using bovine pericardium-06/02/2025-Dr. Felder
Mild leukopenia-WBC 4.3
Mild normocytic anemia-hemoglobin 10.9
Mild thrombocytopenia-platelet 112
Chronic renal insufficiency-serum creatinine 1.7
Hyperglycemia-blood sugar 181
Conditions present prior to admission:
Hypertension.
Hyperlipidemia.
CAD/stent-multiple
Skin cancer.
Bulging disc removal. Carpal tunnel. Bilateral shoulder surgery. Trigger surgery.
Plan
Hemodynamically and neurovascularly intact
Wean supplemental oxygen
Incentive spirometry encourage
Aspiration precautions
Monitor hemoglobin
Transfuse if needed
Monitor blood sugars
Insulin supplementation if needed
Neuro and vascular checks per protocol also continue
Vascular surgery closely following
DVT prophylaxis recommended
Nutrition
Increase activity/physical therapy
Patient can be transferred out of ICU-call pulmonary if respiratory issues arise
Reviewed the patient�s pertinent medical records including radiographs, microbiology, laboratory evaluations, and��discussion with primary team, consultants, pharmacy, nutrition, physical therapy, case management, charge nurse, critical care
nursing, and respiratory therapy.
Diagnostic data:
Chest x-ray 05/19/2025-NAD
Echocardiogram 09/30/2024-EF 55-60%, mild aortic stenosis-GALE 1.2 cm
Cardiac catheterization 11/19/2024-severe CAD with multiple prior stents with progression of left main disease and now new severe disease in the RCA and severely elevated LV filling pressures and no significant aortic stenosis, successful PCI to mid
RCA, successful PCI to RPDA
Subjective Dataa
Subjective Data
Date of Service:
Date of Service: June 03, 2025
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
Subjective:
Denies any shortness of breath, chest pain, abdominal pain, or focal neurologic deficits
Review of Systems
General: Other (Per HPI)
Objective Data
Data Reviewed
Vital Signs / I&O / Oxygen:
Vital Signs
Temp Pulse Resp BP Pulse Ox
97.6 F 75 10 118/57 94
06/03/25 07:19 06/03/25 06:30 06/03/25 06:30 06/03/25 00:00 06/03/25 06:30
Intake and Output
06/02/25 06/03/25 06/04/25
06:59 06:59 06:59
Intake Total 1510.0 / 1510.0
Output Total 1350 / 1350
Balance 160.0 / 160.0
SaO2 94
Nasal Cannula flow liters per 3
minute
Physical Exam
General: Respiratory Distress (n)
HEENT: Normocephalic, Anicteric and Moist Mucous Membranes
Cardiovascular: Regular Rhythm
Respiratory: Wheeze (n), Crackles (n), Rhonchi (n), Non-Labored Respirations, Accessory Resp Muscle Use (n) and Stridor (n)
GI: Soft, Non Distended and Non Tender
Neurology: Awake, Alert and No Motor Deficits
Skin: Warm, Good Color, Cyanosis (n) and Jaundice (n)
Labs/Micro/Reports
Lab Data
06/03/25 04:18
06/03/25 04:18
Laboratory Results
06/03/25
04:18
PT 16.2 H
INR 1.27
APTT 26.4
[2025-06-03 07:32] LABS: Glucose - Point of Care 180 mg/dl (70-99)
--- NOTE | 2025-06-03 08:53 | W.PN.VS ---
Today's Communication / Plan
-
Patient seen and examined at bedside with Dr. Porfirio Felder III, below plan reviewed with attending.
Assessment/Plan
-
Assessment: 85-year-old male POD #1 right carotid endarterectomy
Plan:
Discontinue IV fluids
Discontinue arterial line
Can restart home Coumadin, continue antiplatelet of 75 mg p.o. daily Plavix, patient is also on statin therapy
Out of bed to chair with progression of ambulation as tolerated
Possible discharge later this afternoon pending patient progression
Subjective Data
-
Date of Service: June 03, 2025
Patient seen and examined at bedside, offers no complaints. Denies headache, unilateral weakness, vision changes, dysarthria, or dysphagia. Reports well-managed postoperative pain at right neck surgical site.
Objective Data
-
Vital Signs
Temp Pulse Resp BP Pulse Ox
97.6 F 75 10 118/57 94
06/03/25 07:19 06/03/25 06:30 06/03/25 06:30 06/03/25 00:00 06/03/25 06:30
Intake and Output
06/02/25 06/03/25 06/04/25
06:59 06:59 06:59
Intake Total 1510.0 / 1590.0 160 / 160
Output Total 1350 / 1350
Balance 160.0 / 240.0 160 / 160
Intake:
IV fluids (Total) 1510.0 / 1590.0 160 / 160
NSS 1460 / 1540 160 / 160
cardene 50.0 / 50.0
Output:
Urine, Voided 900 / 900
Straight cath output 450 / 450
Lab Results
06/03/25 04:18
06/03/25 04:18
Calcium 8.6 mg/dl (8.4-10.2) 06/03/25 04:18
Phosphorus 3.2 mg/dl (2.5-4.5) 06/02/25 21:
Magnesium 1.6 mg/dl (1.6-2.3) 06/02/25 21:
Total Bilirubin 1.0 mg/dl (0.2-1.3) 06/02/25 21:
AST 21 U/L (17-59) 06/02/25 21:
ALT 21 U/L (0-50) 06/02/25 21:
Alkaline Phosphatase 163 U/L (38-126) H 06/02/25 21:
Total Protein 6.1 g/dl (6.3-8.2) L 06/02/25:
Albumin 3.7 g/dl (3.5-5.0) 06/02/25 21:
Physical Exam
-
No apparent distress, resting in bed comfortably
Right neck surgical incision clean, dry, and intact, no evidence of hematoma, Exofin glue intact
No tachycardia
No dyspnea on room air
ABD flat, nondistended
Patient moves bilateral upper extremities and lower extremities spontaneously and to command with equal strength
[2025-06-03 09:09] LABS: Glycohemoglobin (HgbA1c) 7.5 % (4.0-5.9)
--- NOTE | 2025-06-03 09:11 | PTCARENOTE ---
Assumed care at 0700. S/P right CEA. See worklist for nursing assessment/neuro assessment details. Denies pain. Right surgical site with surgical adhesive intact with minimal swelling. A-line removed, IVF stopped. Assisted pt OOB to chair with
standby asst.
[2025-06-03] MEDS: COUMADIN 3 MG PO (09:32)
[2025-06-03] MEDS: NOVOLOG FLEXPEN-LOW RESISTANCE 300 UNITS SC (11:59)
[2025-06-03 12:02] LABS: Glucose - Point of Care 190 mg/dl (70-99)
--- NOTE | 2025-06-03 14:08 | W.DS.TRANS ---
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
-
Discharge Instructions:
Discharge Diagnosis/Procedures Right carotid endarterectomy with patch
angioplasty using bovine pericardium
Diet As tolerated
Activity No strenuous activity
Driving Restrictions Not until seen by your Dr
Bathing Restrictions OK to Shower
Instructions:
Stand-Alone Forms: Vascular Surg Discharge Instr
Changes to Home Medications: No
Discharge Medications:
DC Medications w/original date entered in [facility]
amitriptyline 50 mg tablet 50 mg PO HS depression/sleep 06/06/24
atorvastatin 40 mg tablet 40 mg PO QPM High Cholesterol 06/06/24
cholecalciferol (vitamin D3) 125 mcg (5,000 unit) tablet (Vitamin D3) 125 mcg PO QPM Supplement 06/06/24
clopidogrel 75 mg tablet 75 mg PO DAILY Blood Clot Prevention/Tx 06/06/24
coenzyme Q10 100 mg capsule (CoQ-10) 100 mg PO QPM Supplement 06/06/24
cyanocobalamin (vitamin B-12) 1,000 mcg tablet 1,000 mcg PO QPM Supplement 06/06/24
lansoprazole 15 mg delayed release,disintegrating tablet 15 mg PO DAILY Gastrointestinal Issue 06/06/24
tamsulosin 0.4 mg capsule 0.4 mg PO QPM Urinary Issue 06/06/24
warfarin 3 mg tablet (Jantoven) 3 mg PO DAILY Blood Clot Prevention/Tx 06/06/24
zolpidem 5 mg tablet 2.5 mg PO HSPRN PRN sleep 06/06/24
valsartan 80 mg tablet 80 mg PO DAILY Blood Pressure 11/20/24
ranolazine 500 mg tablet,extended release,12 hr 500 mg PO BID 05/15/25
metoprolol succinate 25 mg tablet,extended release 24 hr 12.5 mg PO DAILY 06/02/25
Home Medication Changes
Pending Results: No
--- NOTE | 2025-06-03 14:43 | CM ---
Initial assessment completed with patient who lives with his in a 4th floor apartment in elevator building in independent living at [facility]. GOLF CADDIE patient was independent in ADL's and ambulation with no AD. There is a SPC and rollator in
the home. No in home services. Does not have a HC-POA. No VA benefits. No psychiatric hospitalizations. PCP is Dr. Moises Moore. Pharmacy is [facility] on [address] in [place]. Discharge POC: Anticipate home with no needs.
--- NOTE | 2025-06-03 14:46 | PTCARENOTE ---
Discharge orders written. IVs removed, leads removed. Instructions read aloud with pt and daughter. Assisted to car via w/c without issue.
--- NOTE | 2025-06-03 14:50 | CM ---
Patient has been medically cleared for discharge to home with no additional skilled services. Patient arranged for transport home.
== END 2025-06-03 14:40 | disposition home or self-care (01) | DRG 38 ==
LOC: ICU 07:05
PROVIDERS: Nurse Practitioner; ADMITTING PHYSICIAN Surgery Vascular Surgery; CONSULT PHYSICIAN Internal Medicine Critical Care Medicine; PRIMARYCARE PHYSICIAN Internal Medicine
PROC: 03UH0KZ Supplement Right Common Carotid Artery with Nonautologous Tissue Substitute, Open Approach (ICD-10-PCS; 2025-06-02)
PROC: 03CH0ZZ Extirpation of Matter from Right Common Carotid Artery, Open Approach (ICD-10-PCS; 2025-06-02)
DX: I65.21 Occlusion and stenosis of right carotid artery (principal); D61.818 Other pancytopenia; I25.10 Atherosclerotic heart disease of native coronary artery without angina pectoris; Z95.5 Presence of coronary angioplasty implant and graft; N18.9 Chronic kidney disease, unspecified; Z85.828 Personal history of other malignant neoplasm of skin; R73.9 Hyperglycemia, unspecified; I73.9 Peripheral vascular disease, unspecified; E78.00 Pure hypercholesterolemia, unspecified; I12.9 Hypertensive chronic kidney disease with stage 1 through stage 4 chronic kidney disease, or unspecified chronic kidney disease; Z79.01 Long term (current) use of anticoagulants; Z79.02 Long term (current) use of antithrombotics/antiplatelets; Z79.899 Other long term (current) drug therapy; Z87.891 Personal history of nicotine dependence; Z88.0 Allergy status to penicillin
CPT/HCPCS: 35301; 36415; 71046; 80048; 80053; 82962; 83036; 83735; 84100; 85025; 85027; 85610; 85730; 88304; 88311; 93005; 95938; 95941; 95955

== ENCOUNTER → 2025-07-17 11:18 | Outpatient (REF) | payer MEDICARE, SELFPAY | LOC: RAD 11:18 | PROVIDERS: ATTENDING PHYSICIAN Physician Assistant | DX: I65.21 Occlusion and stenosis of right carotid artery (principal) | CPT/HCPCS: 93880 ==

== ENCOUNTER 2025-07-29 06:34 | Day surgery (SDC) | payer MEDICARE, SELFPAY ==
[2025-07-29] VITALS (17 sets, daily range): BP systolic 104–161; BP diastolic 42–74; BMI 26.6
[2025-07-29 07:30] LABS: INR 1.77; PT 20.8 Sec (11.4-14.6)
[2025-07-29 09:39] LABS: ACT-LR - POC 358 Seconds (116-155)
[2025-07-29 11:40] LABS: ACT-LR - POC > 397 Seconds (116-155)
--- NOTE | 2025-07-29 12:00 | PTCARENOTE ---
Patient received from quality control lab tech recovery. Reports no chest pain at this time. SR with first degree AVB on telemetry. SaO2 on RA 99%. Right groin puncture with gauze and tegaderm assessed with quality control lab tech RN, C/D/I, pedal pulse palpable. Discussed
activity restrictions and bedrest with patient who verbalized understanding. Plan of care discussed. Call grace within reach. Care ongoing.
--- NOTE | 2025-07-29 13:35 | CM ---
Chart reviewed. Patient is independent of ADLS, lives with his at [place] at [facility], 0 DME. Plan is for the patient to return home. CM to follow
--- NOTE | 2025-07-29 15:04 | ITS.CL.PN ---
Mobile Crane Operator - Procedure Note
Procedure
Procedure Note:
CARDIAC CATHETERIZATION REPORT
Date of Procedure: 07/29/2025
Referring: Dr. Willis Zuniga MD
Indication: angina despite maximally tolerated anti-anginal medication
PROCEDURE(S)
1. left heart catheterization
2. coronary angiography
3. IVUS LM
4. iFR LAD
5. POBA RCA
6. iFR RCA
ACCESS: 6F right common femoral artery (closure: radial band)
CATHETERS
1. 6F JR4
2. 6F JL4
3. 6F EBU3.75 guide catheter
3. 6F AR1 guide catheter
MODERATE SEDATION: 45 minutes of moderate sedation was utilized. An independent medical genetics director was present to assist with and help manage the patient's level of consciousness and physiologic status.
HEMODYNAMIC DATA
LV 158/9 (EDP 23) mmHg
AO 129/50 (mean 76) mmHg
CORONARY ANGIOGRAPHY
Dominance: right
LM: Large vessel with eccentric calcific disease focally up to 60-70% in the mid to distal portion further assessed with IVUS.
LAD: Large vessel giving rise to a moderate caliber D1 and small D2 before wrapping around the apex. There is a long stented segment from the ostial LAD to the mid-LAD jailing D1 and a second stented segment in the mid-distal LAD starting just after
D2. The proximal LAD has diffuse moderate ISR. There is a focal 50% stenosis in the distal aspect of the proximal stent and a focal 60% stenosis at the proximal edge of the distal stent, both stable from prior angiography. The vessel otherwise has
diffuse mild-moderate disease. The LAD was further interrogated by iFR.
LCx: Large vessel with a retroflexed takeoff giving rise to a small high rising OM1/ramus, small OM2, moderate caliber LPL1, and moderate caliber LPL2, and small LPL3. There is mild ostial ISR and moderate to severe ISR of the stent in the proximal
OM1, both stable from prior angiography. There is otherwise diffuse mild disease.
RCA: Large vessel giving rise to moderate caliber RPDA and small RPL branch. There are stents extending from the ostial RCA all the way to the mid RPDA. There is a area of focal 70% ISR within the stent placed in October 2024. There is an area of mild
ISR in the proximal RCA unchanged from prior angiography. There is otherwise mild diffuse ISR.
IVUS of left main
Heparin was given to achieve ACT>300. The left main was engaged with an EBU3.75 guide catheter and a Runthrough wire placed in the distal LAD. An V-Key Eye IVUS catheter was advanced to the left main and ringdown performed. The catheter was advanced
to the proximal LAD and pullback performed. MLA was measured at ~6 mm2. On direct comparison to IVUS performed in October 2023, the lesion appears unchanged.
iFR of LAD
An Omni wire was flushed and zeroed outside the body and then advanced to the left main. The wire introducer was removed and the catheter flushed with saline, after which pressure of the wire and guide were normalized. The wire was advanced to the
distal LAD and iFR recorded at 0.51. iFR pullback was performed noting a focal contribution (~0.2) from the stenosis at the proximal edge of the distal stented segment, residual iFR of 0.80 before the long segment of proximal RCA ISR. The pattern
from the proximal LAD back was mostly diffuse with a small focal contribution from the most severe portion of the distal LM disease. On return to the left main, iFR appropriately normalized to ~1.0, confirming lack of wire drift.
POBA RCA
Though the iFR of the LAD was markedly positive, the pattern of disease was mostly diffuse and angiographically unchanged from prior. The ISR of the proximal RCA stent was the only angiographically worsened disease compared to October 2024. Given
concern with placing a 3rd layer of stent, I elected to perform POBA. The RCA was engaged with an AR1 guide catheter and a Runthrough wire placed in the distal RPDA. Angioplasty was performed with a 3.0x12 mm NC balloon taken to 22 fer with full
expansion, followed by a 3.25x12 mm NC balloon taken to 20 fer with full expansion. Final angiography demonstrated improvement of the ISR from 70% down to ~20%. iFR was performed of the mid-RCA and was negative (0.97). The wire and guide were
removed. The groin was closed with Angioseal x1.
CONCLUSIONS
1. Severe coronary artery disease as described with ISR of proximal RCA stent placed in October 2024 and otherwise angiographically stable coronary artery disease. Of note, LAD is iFR is markedly positive, with a focal contribution from a discrete
lesion at the proximal stent edge of the distal stented segment, and significant contribution from a long segment of disease extending from the left main through the proximal LAD. Left main MSA is ~6 mm2 and visually unchanged from prior IVUS in
October 2024 on direct comparison.
2. Mildly elevated LV filling pressure and ~29 mm pullback gradient suggestive of likely moderate .
RECOMMENDATIONS
1. Triple therapy for 1 week followed by Plavix/Warfarin for at least 6 months. Consider senior care continuation of P2Y12 given very high disease burden.
2. Aggressive secondary prevention of coronary artery disease. Goal LDL <55.
3. Aggressive medical therapy for angina with uptitration of 4 agent anti-anginal therapy to maximally tolerated dosages.
4. If patient has recurrent ISR of the proximal RCA (or other areas with >1 layer of stent), recommend referral for DCB angioplasty.
5. If patient does not have relief of anginal with POBA of RCA, then presumed culprit lesion is the LM/LAD. In this setting, antianginal meds should be aggressively uptitrated. If that fails and life-limiting angina remains, focal PCI of the distal
stent edge LAD disease would be a reasonable first option, followed by long segment stenting of the left main into proximal LAD (jailing the ostium of the retroflexed large LCx) only if all else fails.
Copy to: Dr. Willis Zuniga MD (vermin exterminator); Dr. Moises Moore MD (PCP)
Signed: Nomi Winters MD, PhD
--- NOTE | 2025-07-29 17:13 | PTCARENOTE ---
Right groin site noted to be oozing further. Surrounding area soft to palpation, no evidence of hematoma. qc lab technician RASHID Quintanilla in to see patient and assess site. New hemostasis pad, gauze, and tegaderm applied. Pedal pulse remains palpable. The
patient denies pain at the puncture site and continues to deny chest pain. Patient OK to resume Coumadin tonight per RASHID Quintanilla.
[2025-07-29] MEDS: COUMADIN 3 MG PO (18:19)
[2025-07-29] MEDS: FLOMAX 0.4 MG PO (18:20)
[2025-07-29] MEDS: LIPITOR 40 MG PO (18:20)
[2025-07-29] MEDS: RANEXA EXTENDED RELEASE 500 MG PO (19:38)
[2025-07-29] MEDS: TYLENOL 650 MG PO (22:27)
--- NOTE | 2025-07-29 23:42 | PTCARENOTE ---
Received pt at change of shift resting in bed. SR w/ PVC's on tele, HR 70's-80's. pt denies any CP or SOB at this time. R groin site intact w/ sanguineous drainage noted and marked on dressing from previous shift. PRN Tylenol administered per pt
request for headache--see SEP. Fall risk precautions maintained, bed alarm on and audible. Educated pt to call RN for assistance ambulating, urinal and call grace within reach.
[2025-07-30 03:03] VITALS: BP 138/68
[2025-07-30 03:16] VITALS: BMI 25.4
[2025-07-30 03:57] LABS: Hematocrit 29.5 % (39.0-52.0); Hemoglobin 10.3 g/dL (13.0-18.0); Mean Corp Hgb Conc. 34.9 g/dL (33.0-37.0); Mean Corpuscular Volume 89.1 fL (80.0-94.0); Platelet Count 117 10^3/uL (130-400); Red Cell Dist. Width 14.1 % (11.5-14.5)
[2025-07-30 04:10] LABS: INR 1.58; PT 19.0 Sec (11.4-14.6)
[2025-07-30 04:36] LABS: Blood Urea Nitrogen 27 mg/dl (9-20); Calcium 9.2 mg/dl (8.4-10.2); Carbon Dioxide 19 mmol/L (22-30); Chloride 106 mmol/L (98-107); Estimated Creatinine Clearance 33 ml/min; Glucose 146 mg/dl (70-99); HDL Cholesterol 38 mg/dl; LDL Cholesterol, Calculated 45 mg/dl; Potassium 4.2 mmol/L (3.5-5.1); Sodium 134 mmol/L (135-145); Very Low Density Lipoprotein 48 mg/dl (0-30); eGFR 41.44
[2025-07-30 07:17] VITALS: BP 142/96
[2025-07-30] MEDS: RANEXA EXTENDED RELEASE 500 MG PO (08:04)
[2025-07-30] MEDS: PROTONIX 40 MG PO (08:04)
[2025-07-30] MEDS: IMDUR (EXTENDED RELEASE) 30 MG PO (08:04)
[2025-07-30] MEDS: LOW STRENGTH ASPIRIN 81 MG PO (08:04)
[2025-07-30] MEDS: PLAVIX 75 MG PO (08:04)
[2025-07-30] MEDS: PROSCAR 5 MG PO (08:04)
[2025-07-30] MEDS: TOPROL XL 12.5 MG PO (08:04)
[2025-07-30] MEDS: TYLENOL 650 MG PO (10:06)
[2025-07-30 11:37] VITALS: BP 107/49
--- NOTE | 2025-07-30 11:43 | W.PN.CD ---
Today's Communication / Plan
-
stable for discharge post PCI
Impression / Plan
-
PCP: Moises Moore MD
CDY: Willis Zuniga MD
85 y/o, complex cardiac history including multiple stents to LAD, LCx, OM1, and RCA, most recently with RCA PCI 10/2024. Presented with recurrent chest pain despite max ray medical therapy. Found to have new ISR of prior RCA stent s/p sucessful POBA.
Also has diffuse LM and LAD disease, angiographically stable from prior.
IMPRESSION/PLAN:
Complex CAD
s/p RCA POBA
groin site stable
tele NSR w/ occasional PVC, no vt/arrhythmia
will be on triple therapy w/asa, plavix, warfarin for 1 week, then stop asa and remain on plavix/warfarin only
continue metoprolol tartrate, ranolazine, isosorbide
If symptoms to not improve, will need to consider PCI to LAD+/-LM
if patient develops recurrent ISR in regions of 2 or more stent layers, drug coated balloons should be considered in the future
cardiac rehab consult
followup with Dr. Zuniga 2-4 weeks
home today
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
HTN- controlled
continue valsartan
Physical Exam
Vital Signs/Labs
Vital Signs
Temp Pulse Resp BP Pulse Ox
36.3 C 81 20 142/96 98
07/30/25 11:37 07/30/25 07:17 07/30/25 11:37 07/30/25 07:17 07/30/25 11:37
07/29/25 07/30/25 07/31/25
06:59 06:59 06:59
Actual Weight 78 kg
07/30/25 03:15
07/30/25 03:15
PT 19.0 Sec (11.4-14.6) H 07/30/25 03:15
INR 1.58 07/30/25 03:15
Triglycerides 242 mg/dl (10-149) H 07/30/25 03:15
LDL Cholesterol, Calc 45 mg/dl 07/30/25 03:15
VLDL Cholesterol, Calc 48 mg/dl (0-30) H 07/30/25 03:15
HDL Cholesterol 38 mg/dl 07/30/25 03:15
Physical Exam
Constitutional: Comfortable
Cardiovascular: Rhythm & rate is regular
Respiratory: Respiratory effort normal
Neuro/Psych: AO x 3
Data Reviewed
-
Date of Service: July 30, 2025
Medical Decision Making: Reviewed Test Results
Labs: Labs Reviewed by me
--- NOTE | 2025-07-30 11:55 | W.DS.TRANS ---
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
-
Discharge Instructions:
Discharge Diagnosis/Procedures Balloon angioplasty of RCA in-stent stenosis
Diet Low Cholesterol
Driving Restrictions No driving for 24 hours
Blood Work Check INR on Monday
Other Services Cardiac Rehab
Instructions:
Stand-Alone Forms: DC Instructions- Cath/EP Lab
Changes to Home Medications: Yes
Discharge Medications:
DC Medications w/original date entered in [facility]
amitriptyline 50 mg tablet 50 mg PO HS depression/sleep 06/06/24
atorvastatin 40 mg tablet 40 mg PO QPM High Cholesterol 06/06/24
cholecalciferol (vitamin D3) 125 mcg (5,000 unit) tablet (Vitamin D3) 125 mcg PO QPM Supplement 06/06/24
clopidogrel 75 mg tablet 75 mg PO DAILY Blood Clot Prevention/Tx 06/06/24
coenzyme Q10 100 mg capsule (CoQ-10) 100 mg PO QPM Supplement 06/06/24
cyanocobalamin (vitamin B-12) 1,000 mcg tablet 1,000 mcg PO QPM Supplement 06/06/24
lansoprazole 15 mg delayed release,disintegrating tablet 15 mg PO DAILY Gastrointestinal Issue 06/06/24
tamsulosin 0.4 mg capsule 0.4 mg PO QPM Urinary Issue 06/06/24
warfarin 3 mg tablet (Jantoven) 3 mg PO DAILY Blood Clot Prevention/Tx 06/06/24
zolpidem 5 mg tablet 2.5 mg PO HSPRN PRN sleep 06/06/24
valsartan 80 mg tablet 80 mg PO DAILY Blood Pressure 11/20/24
ranolazine 500 mg tablet,extended release,12 hr 500 mg PO BID 05/15/25
metoprolol succinate 25 mg tablet,extended release 24 hr 12.5 mg PO DAILY 06/02/25
acetaminophen 500 mg tablet 500 mg PO Q6H PRN pain 07/29/25
finasteride 5 mg tablet 5 mg PO DAILY 07/29/25
folic acid 1 mg tablet 1 mg PO DAILY 07/29/25
ibuprofen 200 mg tablet 200 mg PO Q6H PRN pain 07/29/25
isosorbide mononitrate 30 mg tablet,extended release 24 hr 30 mg PO DAILY 07/29/25
aspirin 81 mg chewable tablet 81 mg PO DAILY #1 tab 07/30/25
Home Medication Changes
ASA 81mg for 1 week then stop
Pending Results: No
--- NOTE | 2025-07-30 12:45 | PTCARENOTE ---
Assumed care of the pt @ 0700. Pt is AAOx3 + [place] SR with PVC's on the monitor. VSS. Pt has right groin cath site dressing c/d/i. + pulses. Fall risk measures implemented such as bed and chair alarm. Pt is 1 person stand by assist call grace within
reach. Pt was discharged to home/ [facility]. Pt left hospital with daughter. Instructions given to pt and daughter. Verbalized understanding. PIV and cardiac monitor technician removed prior to discharge.
== END 2025-07-30 12:57 | disposition home or self-care (01) ==
LOC: CATH 06:34
PROVIDERS: Nurse Practitioner Adult Health; ATTENDING PHYSICIAN Student in an Organized Health Care Education/Training Program; FAMILY PHYSICIAN Internal Medicine; OTHER PHYSICIAN Internal Medicine Cardiovascular Disease
DX: I25.119 Atherosclerotic heart disease of native coronary artery with unspecified angina pectoris (principal); T82.855A Stenosis of coronary artery stent, initial encounter; Y83.9 Surgical procedure, unspecified as the cause of abnormal reaction of the patient, or of later complication, without mention of misadventure at the time of the procedure; Z79.01 Long term (current) use of anticoagulants; I08.0 Rheumatic disorders of both mitral and aortic valves; I12.9 Hypertensive chronic kidney disease with stage 1 through stage 4 chronic kidney disease, or unspecified chronic kidney disease; N18.32 Chronic kidney disease, stage 3b; I08.8 Other rheumatic multiple valve diseases; I44.0 Atrioventricular block, first degree; I26.99 Other pulmonary embolism without acute cor pulmonale; I49.3 Ventricular premature depolarization; Z95.5 Presence of coronary angioplasty implant and graft
CPT/HCPCS: 92978; 93799 ×2; 80048; 80061; 85027; 85347; 85610; 92920; 93005; 93306; 93458; 99152; 99153; C1725; C1753; C1760; C1769; C1894; Q9967